=== PATIENT | male | born 1995 | race Two or more races ===

== ENCOUNTER 2020-02-02 10:48 | Outpatient (REF) | payer MEDICAID, SELFPAY | END 2020-02-02 10:49 | disposition home or self-care (01) | LOC: HO.LAB 10:48 | PROVIDERS: PCP Internal Medicine; Visit Provider Internal Medicine | DX: Z20.828 Contact with and (suspected) exposure to other viral communicable diseases (principal) | CPT/HCPCS: C9803; U0003 ==

== ENCOUNTER 2020-05-16 18:52 | Emergency (ER) | payer MEDICAID, SELFPAY | END 2020-05-16 21:12 | disposition left against medical advice (07) | PROVIDERS: Emergency Provider Emergency Medicine; PCP Internal Medicine | DX: J45.909 Unspecified asthma, uncomplicated (principal) ==

== ENCOUNTER 2020-05-17 10:26 | Outpatient (REF) | payer MEDICAID, SELFPAY ==
[2020-05-17 13:49] LABS: MANUAL DIFF FLAG NO
[2020-05-17 13:53] LABS: Basophils Percent Auto 0.5 % (0-2); Eosinophils Absolute Auto 1.1 X10*3/uL (0.0-0.4); Eosinophils Percent Auto 17.7 % (0-4); Hematocrit 45.1 % (42-52); Hemoglobin 14.8 g/dl (14.0-18.0); Imm Gran Abs Auto 0.01 X10*3/uL (0.00-0.03); Imm Gran Pct Auto 0.2 % (0.0-0.4); Lymphocytes Absolute Auto 1.5 X10*3/uL (1.2-4.9); Lymphocytes Percent Auto 25.5 % (20-40); Mean Corpuscular HGB Conc 32.8 g/dl (31.0-36.0); Mean Corpuscular Hemoglobin 28.6 pg (27.0-33.0); Mean Corpuscular Volume 87.2 fL (80-98); Mean Platelet Volume 11.1 fL (9.4-12.4); Monocytes Absolute Auto 0.6 X10*3/uL (0.1-1.2); Monocytes Percent Auto 10.1 % (2-11); Neutrophils Absolute Auto 2.7 X10*3/uL (2.0-8.3); Platelet Count 272 X10*3/uL (160-400); Red Blood Count 5.17 X10*6/uL (4.60-5.80); Red Cell Distribution Width 13.5 % (11.0-16.0); White Blood Count 5.9 X10*3/uL (4.8-10.8)
[2020-05-17 14:18] LABS: Anion Gap 15 (12-20); Blood Urea Nitrogen 13 mg/dL (9-16); Calcium 9.9 mg/dL (8.4-10.2); Carbon Dioxide 24 mmol/L (22-29); Chloride 105 mmol/L (96-108); Estimated Glomerular Filt Rate > 60; Glucose Random 87 mg/dL (60-115); Potassium 4.2 mmol/L (3.3-5.1); Sodium 140 mmol/L (135-145)
[2020-05-18 21:21] LABS: Alpha 1 Anti-trypsin 141 mg/dL (83-199)
== END 2020-05-17 10:27 | disposition home or self-care (01) ==
LOC: HO.10HDL 10:26
PROVIDERS: Visit Provider Internal Medicine
DX: J45.909 Unspecified asthma, uncomplicated (principal); R06.02 Shortness of breath
CPT/HCPCS: 36415; 80048; 82103; 85025

== ENCOUNTER 2020-05-17 16:33 | Emergency (ER) | payer MEDICAID, SELFPAY ==
--- NOTE | ~2020-05-17 | XR_ITS ---
EXAMINATION: XR CHEST CLINICAL INFORMATION: SOB. History of asthma COMPARISON: None TECHNIQUE: 2 views of the chest were obtained. FINDINGS: Both lungs are hyperinflated but clear. The heart size and pulmonary vascularity is normal. No gross bony abnormality seen XR/XR chest 2V IMPRESSION: Hyperinflated lungs without acute process.
--- NOTE | 2020-05-17 16:42 | ED_ITS ---
HPI - Asthma General Chief Complaint: Dyspnea <Adan Galloway MD - Last Filed: 05/17/20 16:54> Stated Complaint: Asthma <Adan Galloway MD - Last Filed: 05/17/20 16:54> Time Seen by Provider: 05/17/20 16:42 <Adan Galloway MD - Last Filed: 05/17/20 16:54> Source: patient <ONESIMO Madison - Last Filed: 05/17/20 19:20> Mode of arrival: ambulatory <ONESIMO Madison - Last Filed: 05/17/20 19:20> Limitations: no limitations <ONESIMO Madison - Last Filed: 05/17/20 19:20> History of Present Illness HPI Narrative: 25-year-old male with a past medical history of asthma and anxiety presenting to the ED with complaints of shortness of breath since yesterday despite using his albuterol inhaler and his nebulizer machine prior to arrival that he was just prescribed yesterday by his primary care provider. Denies any fevers, chills, dizziness, headaches, changes in vision, jaw pain, nausea/vomiting, dry cough or productive cough, dyspnea on exertion, orthopnea, palpitations, any symptoms or lower extremity edema. Reports he recently traveled to [place] and returned. Denies any other travel/immobilization/history of cancer or recent surgery or trauma. Denies being on any estrogen. Denies any other symptoms complaints or concerns at this time. <ONESIMO Madison - Last Filed: 05/17/20 19:20> complaint: asthma attack , shortness of breath and wheezing <ONESIMO Madison - Last Filed: 05/17/20 19:20> Onset (ago): day(s) (Two days) <ONESIMO Madison - Last Filed: 05/17/20 19:20> Severity: moderate <ONESIMO Madison - Last Filed: 05/17/20 19:20> Context: none known <ONESIMO Madison - Last Filed: 05/17/20 19:20> Associated symptoms: none <ONESIMO Madison Last Filed: 05/17/20 19:20> Treatments Prior to Arrival: inhaled bronchodilator and inhaled steroid <ONESIMO Madison - Last Filed: 05/17/20 19:20> Related Data Current Asthma Therapy: inhaled bronchodilator and inhaled steroid <ONESIMO Madison - Last Filed: 05/17/20 19:20> Home Medications: Home Medications Medication Instructions Recorded Confirmed albuterol sulfate 1 vial INHALATION Q4H PRN 05/17/20 05/17/20 albuterol sulfate 2 puff INHALATION QID PRN 05/17/20 05/17/20 albuterol sulfate [ProAir HFA] 2 puff PO QID PRN 05/17/20 05/17/20 montelukast 1 tab PO DAILY 05/17/20 05/17/20 Previous Rx's Medication Instructions Recorded azithromycin See Rx Instructions .ROUTE 05/17/20 .COMPLEX #6 tab prednisone 60 mg PO DAILY 5 Days #15 tab 05/17/20 <Adan Galloway MD - Last Filed: 05/17/20 16:54> Allergies/Adverse Reactions: Allergies Allergy/AdvReac Type Severity Reaction Status Date / Time No Known Allergies Allergy Unverified 05/17/20 16:47 <Adan Galloway MD - Last Filed: 05/17/20 16:54> Review of Systems Review of Systems: Constitutional : denies med noncompliance, no history of PE or DVT, + recent travel, No Fever, No Chills ENT/Mouth : No Hoarseness, No sore throat, No Rhinorrhea Eyes: No Redness, No Discharge, No Vision Changes Cardiovascular : + SOB, No Chest Pain, No Dyspnea on Exertion, No Edema, no pleurisy, Respiratory : + Wheezing, No Sputum, no stridor, no hemoptysis, Gastrointestinal : No Nausea, No Vomiting, No Diarrhea, No abdominal Pain Genitourinary : No Dysuria, No Hematuria Musculoskeletal : No joint pain, No Myalgias Extremities: no extremity swelling /pain Skin : No rash, no itching, no swelling Neuro : No Weakness, No Numbness, No Headache Psych : No anxiety, depression Heme/Lymph: No Bruising, No Bleeding Endocrine : No Polyuria, No Polydipsia <ONESIMO Madison - Last Filed: 05/17/20 19:20> Yes all other systems are reviewed and are negative <ONESIMO Madison - Last Filed: 05/17/20 19:20> [facility] Past Medical History Attestation statement: The following information was validated with the patient. <ONESIMO Madison - Last Filed: 05/17/20 19:20> Medical History: Medical History Anxiety Asthma <Adan Galloway MD - Last Filed: 05/17/20 16:54> Social History Social History: Social History Smoked in Last 30 Days: No Use of substances other than those prescribed or required for medical reasons: Yes Substance Use Type: Marijuana Substance Use Frequency: Daily Last Used Substance: Hours (ago) Any prior treatment program specific to substance use: No Advance Directives: No Advance Directives Information Provided: Yes <Adan Galloway MD - Last Filed: 05/17/20 16:54> Physical Exam Vital Signs: Vital Signs: Last Vital Signs Temp 98.7 F 05/17/20 16:44 Pulse 67 05/17/20 18:17 Resp 16 05/17/20 18:08 BP 117/74 05/17/20 18:08 Pulse Ox 98 05/17/20 18:08 Body Mass Index 19.2 <Adan Galloway MD - Last Filed: 05/17/20 16:54> Vital Signs: Last Vital Signs Temp 98.7 F 05/17/20 16:44 Pulse 67 05/17/20 18:17 Resp 16 05/17/20 18:08 BP 117/74 05/17/20 18:08 Pulse Ox 98 05/17/20 18:08 Body Mass Index 19.2 vital signs have been reviewed as normal and appeared to be correct. Blood pressure normal. Heart rate normal. Respiration rate normal. Temperature normal. Oxygen saturation normal. <ONESIMO Madison - Last Filed: 05/17/20 19:20> Appearance: Alert. Oriented X3. No acute distress. Head: Normal external exam. Normocephalic. Atraumatic. Eyes: PERRLA. EOMI. Conjunctiva and sclera normal. Eyelids normal. ENT: Pharynx normal. Uvula midline. Moist mucous membranes. No trismus noted. No drooling noted. No muffled voice noted. Neck: Normal inspection. Neck supple. FROM. No adenopathy. Thyroid Normal. No meningeal signs. No neck mass noted. CVS: Normal heart rate and rhythm. Heart sound normal. No murmurs noted. Pulses normal throughout. Respiratory: No respiratory distress. Painless inspiration. Mild expiratory wheezing diffusely with decreased breath sounds. No rales/rhonchi noted. Chest nontender. No accessory muscle usage noted or decreased air movement noted. Back: Full range of motion noted. Skin: Skin warm and dry. Normal skin color. Normal skin turgor. No rashes/lesions/lacerations noted. Extremities: No lower extremity edema. Extremities exhibit normal range of motion. Extremities nontender. Neuro: Oriented X 3. No motor deficit. No sensory deficit. Reflexes normal. <ONESIMO Madison - Last Filed: 05/17/20 19:20> Course Course Course Narrative: 25-year-old male with a past medical history of anxiety and Ativan presenting to the ED with complaints of shortness of breath for the past 2 days despite using his albuterol inhaler updraft machine prior to arrival. Reports recent travel to [place]. Denies any other symptoms. On exam patient has mild wheezing throughout. No retractions or accessory muscle noted. Chest x- ray obtained and negative for any acute processes. COVID swab negative. Patient received a breathing treatment reports he feels better. Will DC home with antibiotics and steroids and instructions to return if any new or worsening symptoms to follow up with primary care provider. Patient understands agrees with this plan. <ONESIMO Madison - Last Filed: 05/17/20 19:20> MDM - Asthma Medical Records Attestation: I reviewed the patient's medical records. <ONESIMO Madison - Last Filed: 05/17/20 19:20> Lab Data Attestation: I reviewed the patient's lab results. <ONESIMO Madison - Last Filed: 05/17/20 19:20> Labs: Lab Results 05/17/20 Range/Units 18:12 COVID-19 ([facility]) Negative (Negative) COVID-19 Clin Com See Note <Adan Galloway MD - Last Filed: 05/17/20 16:54> Lab Results 05/17/20 Range/Units 18:12 COVID-19 ([facility]) Negative (Negative) COVID-19 Clin Com See Note <ONESIMO Madison - Last Filed: 05/17/20 19:20> Imaging Data Chest x-ray: Attestation: I personally reviewed and interpreted this imaging study as follows: <ONESIMO Madison - Last Filed: 05/17/20 19:20> Radiologist's impression: FINDINGS: Both lungs are hyperinflated but clear. The heart size and pulmonary vascularity is normal. No gross bony abnormality seen XR/XR chest 2V IMPRESSION: Hyperinflated lungs without acute process. <ONESIMO Madison - Last Filed: 05/17/20 19:20> Discharge Plan Discharge Clinical Impression: Asthma with exacerbation <Adan Galloway MD - Last Filed: 05/17/20 16:54> Patient Disposition: Home, Self-Care <Adan Galloway MD - Last Filed: 05/17/20 16:54> Instructions: Asthma (ED), How to Use a Nebulizer (ED), Bronchospasm (ED) <Adan Galloway MD - Last Filed: 05/17/20 16:54> Prescriptions: New azithromycin 250 mg tablet See Rx Instructions .ROUTE .COMPLEX Qty: 6 RF: 0 prednisone 20 mg tablet 60 mg PO DAILY 5 Days Qty: 15 RF: 0 No Action albuterol sulfate 2.5 mg /3 mL (0.083 %) solution for nebulization 1 vial inhalation Q4H PRN (Reason: Shortness Of Breath Or Wheezing) RF: 0 montelukast 10 mg tablet 1 tab PO DAILY RF: 0 albuterol sulfate 90 mcg/actuation HFA aerosol inhaler 2 puff inhalation QID PRN (Reason: Shortness Of Breath Or Wheezing) RF: 0 albuterol sulfate [ProAir HFA] 90 mcg/actuation HFA aerosol inhaler 2 puff PO QID PRN (Reason: Shortness Of Breath Or Wheezing) RF: 0 <Adan Galloway MD - Last Filed: 05/17/20 16:54> Referrals: Adolph Salazar MD [Primary Care Provider] - 2 days <Adan Galloway MD - Last Filed: 05/17/20 16:54> Print Language: [place] <Adan Galloway MD - Last Filed: 05/17/20 16:54>
[2020-05-17 16:44] VITALS: BP 114/66; PULSE 94; RESP 22; TEMP 37.1; O2SAT 99; BMI 19.2
[2020-05-17] MEDS: predniSONE 20 MG TABLET 60 MG PO (18:06)
[2020-05-17 18:08] VITALS: BP 117/74; PULSE 78; RESP 16; O2SAT 98
[2020-05-17] MEDS: Albuterol Sulfate (0.083%) 2.5 MG/3 ML VIAL.NEB 5 MG INHALE (18:16)
[2020-05-17 18:17] VITALS: PULSE 67; O2SAT 100
[2020-05-17 18:34] LABS: COVID-19 Test Negative (Negative); IDNOW Serial# 9DD0AD1C
== END 2020-05-17 19:26 | disposition home or self-care (01) ==
PROVIDERS: Physician Assistant Medical; Emergency Provider Internal Medicine; PCP Internal Medicine
DX: J45.901 Unspecified asthma with (acute) exacerbation (principal); F12.90 Cannabis use, unspecified, uncomplicated; Z20.822 Contact with and (suspected) exposure to COVID-19
CPT/HCPCS: 36415; 71046; 87635; 94640; 99284

== ENCOUNTER 2020-08-03 23:04 | Emergency (ER) | payer MEDICAID, SELFPAY ==
[2020-08-03 23:07] VITALS: BP 112/86; PULSE 87; RESP 18; TEMP 36.6; O2SAT 99; BMI 19.2
--- NOTE | 2020-08-03 23:56 | ED.ASTHMA ---
HPI - Asthma General Chief Complaint: Asthma Stated Complaint: sob asthma Time Seen by Provider: 08/03/20 23:53 History of Present Illness HPI Narrative: Patient is a 25-year-old male with a history of asthma. Never been admitted to the hospital past . no recreational drugs. No smoking. Positive coughing positive congestion. Patient been to the ER multiple times. Never been admitted. Positive upper respiratory symptoms. Patient received his 1st coronavirus vaccine about a month ago. Related Data Home Medications Medication Instructions Recorded Confirmed albuterol sulfate 1 vial INHALATION Q4H PRN 05/17/20 05/17/20 albuterol sulfate 2 puff INHALATION QID PRN 05/17/20 05/17/20 albuterol sulfate [ProAir HFA] 2 puff PO QID PRN 05/17/20 05/17/20 montelukast 1 tab PO DAILY 05/17/20 05/17/20 Previous Rx's Medication Instructions Recorded azithromycin See Rx Instructions .ROUTE 05/17/20 .COMPLEX #6 tab prednisone 60 mg PO DAILY 5 Days #15 tab 05/17/20 albuterol sulfate 2 puff INHALATION QID PRN #6.7 g 08/03/20 prednisone 40 mg PO DAILY #10 tab 08/03/20 Allergies Allergy/AdvReac Type Severity Reaction Status Date / Time No Known Allergies Allergy Verified 08/03/20 23:07 Review of Systems Review of Systems: Constitutional: No Weight loss, No Fever, No Chills, No Night Sweats, No Fatigue, No Malaise ENT/Mouth: No Hearing loss, No Ear Pain, No Nasal Congestion, No Sinus Pain, No Hoarseness, No sore throat, No Rhinorrhea, No Swallowing Difficulty Eyes: No Eye Pain, No Swelling, No Redness, No Foreign Body, No Discharge, No Vision Changes Cardiovascular: No Chest Pain, No SOB, No Dyspnea on Exertion, No Orthopnea, No Edema, No Palpitations Respiratory: Positive cough positive upper respiratory symptoms Gastrointestinal: No Nausea, No Vomiting, No Diarrhea, No Constipation, No abdominal Pain, No Hematochezia, No Melena Genitourinary: no irregular bleeding, No Dysuria, No Urinary Frequency, No Hematuria, No Urinary Incontinence, No Urgency, No Flank Pain, No Urinary Flow Changes, No Hesitancy Musculoskeletal: No joint pain, No Myalgias, No Joint Swelling Skin: No Skin Lesions, No rash Neuro: No Weakness, No Numbness, No Paresthesias, No Loss of Consciousness, No Dizziness, No Headache Psych: No Anxiety/Panic, No Depression, No SI/HI/AH/VH, No Social Issues, Heme/Lymph: No Bruising, No Bleeding,No Lymphadenopathy Endocrine: No Polyuria, No Polydipsia, No Temperature Intolerance PMFSH Past Medical History Medical History Anxiety Asthma Social History Social History Alcohol intake: unknown Patient Tobacco Use Status: Never used Tobacco Use of substances other than those prescribed or required for medical reasons: No Substance Use Type: Marijuana Advance Directives: No Physical Exam Vital Signs: Vital Signs: Last Vital Signs Temp 97.8 F 08/03/20 23:07 Pulse 87 08/03/20 23:07 Resp 18 08/03/20 23:07 BP 112/86 08/03/20 23:07 Pulse Ox 99 08/03/20 23:07 Body Mass Index 19.2 Appearance: Alert. Oriented X3. No acute distress. Eyes: Pupils equal, round and reactive to light. ENT: Pharynx normal. Neck: Normal inspection. Neck supple. No lymph nodes noted. No crepitus CVS: Normal heart rate and rhythm. Pulses normal. Normal S1 and S2 Respiratory: No respiratory distress. Breath sounds normal. No Wheezing. No rales Abdomen: Soft and nontender. No rigidity. No distention. good BS x4 Skin: Skin warm and dry. Normal skin color. Normal skin turgor. Extremities: No lower extremity edema. Neurovascular intact to all extremities. No Lacerations. No Rash Neuro: Oriented X 3. No motor deficit. No sensory deficit. Moving all extermities. No slurred speech MDM - Asthma MDM Narrative Medical decision making narrative: Patient's lungs are clear. O2 sats 99% on room air. Already took 40 mg of prednisone at home which she had a supplied of. Will he give patient a script for prednisone. Additional albuterol. As patient ran out of his inhaler. Patient will also get a COVID test as he has upper respiratory symptoms only had 1 vaccine. Currently in stable condition. COVID test was negative Lab Data Labs: Lab Results 08/04/20 Range/Units 00:08 COVID-19 ([facility]) Negative (Negative) COVID-19 Clin Com See Note Discharge Plan Discharge Clinical Impression: Asthma Patient Disposition: Home, Self-Care Instructions: Asthma (ED) Prescriptions: New prednisone 20 mg tablet 40 mg PO DAILY Qty: 10 RF: 0 albuterol sulfate 90 mcg/actuation HFA aerosol inhaler 2 puff inhalation QID PRN (Reason: shortness of breath or wheezing) Qty: 6.7 RF: 0 No Action albuterol sulfate 2.5 mg /3 mL (0.083 %) solution for nebulization 1 vial inhalation Q4H PRN (Reason: Shortness Of Breath Or Wheezing) RF: 0 montelukast 10 mg tablet 1 tab PO DAILY RF: 0 albuterol sulfate 90 mcg/actuation HFA aerosol inhaler 2 puff inhalation QID PRN (Reason: Shortness Of Breath Or Wheezing) RF: 0 albuterol sulfate [ProAir HFA] 90 mcg/actuation HFA aerosol inhaler 2 puff PO QID PRN (Reason: Shortness Of Breath Or Wheezing) RF: 0 azithromycin 250 mg tablet See Rx Instructions .ROUTE .COMPLEX Qty: 6 RF: 0 prednisone 20 mg tablet 60 mg PO DAILY 5 Days Qty: 15 RF: 0 Referrals: Physician,Unknown [Primary Care Provider] - 2 days
[2020-08-04] MEDS: Albuterol Sulfate 90 MCG 8 GM INHALER 2 PUFF INHALE (00:15)
[2020-08-04 00:44] LABS: COVID-19 Test Negative (Negative); IDNOW Serial# 9DD0AD1C
== END 2020-08-04 01:35 | disposition home or self-care (01) ==
PROVIDERS: Emergency Provider Emergency Medicine Emergency Medical Services
DX: J45.909 Unspecified asthma, uncomplicated (principal); Z20.822 Contact with and (suspected) exposure to COVID-19
CPT/HCPCS: 36415; 87635; 99283; 99284

== ENCOUNTER 2021-01-28 14:20 | Outpatient (REF) | payer MEDICAID, SELFPAY ==
[2021-01-28 15:13] LABS: Influenza A PCR NEGATIVE (Negative); Influenza B PCR NEGATIVE (Negative); Resp Syncy Virus RNA Qual PCR NEGATIVE (Negative); SARS COV2 PCR INHOUSE POSITIVE (Negative)
== END 2021-01-28 14:21 | disposition home or self-care (01) ==
LOC: HO.LNP 14:20
PROVIDERS: Visit Provider Internal Medicine
DX: Z20.822 Contact with and (suspected) exposure to COVID-19 (principal)
CPT/HCPCS: 0241U

== ENCOUNTER 2021-09-19 13:58 | Outpatient (REF) | payer MEDICAID, SELFPAY ==
[2021-09-19 14:43] LABS: Influenza A PCR NEGATIVE (Negative); Influenza B PCR NEGATIVE (Negative); Resp Syncy Virus RNA Qual PCR POSITIVE (Negative); SARS COV2 PCR INHOUSE NEGATIVE (Negative)
== END 2021-09-19 13:59 | disposition home or self-care (01) ==
LOC: HO.LNP 13:58
PROVIDERS: Visit Provider Internal Medicine
DX: Z20.822 Contact with and (suspected) exposure to COVID-19 (principal)
CPT/HCPCS: 0241U

== ENCOUNTER 2021-12-01 10:50 | Emergency (ER) | payer MEDICAID, SELFPAY ==
[2021-12-01 11:29] VITALS: BP 104/56; PULSE 68; RESP 20; TEMP 37.2; O2SAT 99; BMI 18.3
[2021-12-01 11:40] LABS: MANUAL DIFF FLAG NO
[2021-12-01 11:41] LABS: Basophils Absolute Auto 0.1 X10*3/uL (0.0-0.2); Basophils Percent Auto 0.4 % (0-2); Eosinophils Absolute Auto 0.2 X10*3/uL (0.0-0.4); Eosinophils Percent Auto 1.3 % (0-4); Hematocrit 40.3 % (42.0-52.0); Hemoglobin 13.6 g/dl (14.0-18.0); Imm Gran Abs Auto 0.05 X10*3/uL (0.00-0.03); Imm Gran Pct Auto 0.4 % (0.0-0.4); Lymphocytes Absolute Auto 1.9 X10*3/uL (1.2-4.9); Lymphocytes Percent Auto 16.4 % (20-40); Mean Corpuscular HGB Conc 33.7 g/dl (31.0-36.0); Mean Corpuscular Hemoglobin 29.6 pg (27.0-33.0); Mean Corpuscular Volume 87.6 fL (80.0-98.0); Mean Platelet Volume 10.5 fL (9.4-12.4); Monocytes Absolute Auto 1.1 X10*3/uL (0.1-1.2); Monocytes Percent Auto 9.5 % (2-11); Neutrophils Absolute Auto 8.2 x10*3/uL (2.0-8.3); Platelet Count 257 X10*3/uL (160-400); Red Cell Distribution Width 12.9 % (11.0-16.0); White Blood Count 11.4 X10*3/uL (4.8-10.8)
[2021-12-01 11:46] LABS: Appearance Urine Clear; Color Urine Yellow; Glucose Urine UA Negative (Negative); Leukocyte Esterase Urine Negative (Negative); Nitrite Urine Negative (Negative); PH 8.5 (5.0-9.0); Specific Gravity - Urine <= 1.005 (1.005-1.025); UMIC TRIGGER UACC YES; Urine Blood Small (1+) (Negative); Urine Ketones Negative (Negative); Urine Protein Negative (Neg-Trace)
[2021-12-01 12:00] VITALS: BP 116/80; PULSE 81; RESP 20; TEMP 37.1; O2SAT 96
[2021-12-01 12:01] LABS: Bacteria Urine None Seen (None Seen); Hyaline Casts Urine 0-2 /LPF (0-2); Squamous Epithelial Cell Urine 0-2 /HPF (0-2); WBC Urine 0-5 /HPF (0-5)
[2021-12-01 12:18] LABS: Alanine Aminotransferase 8 U/L (0-40); Albumin Level 4.6 g/dL (3.5-5.0); Alkaline Phosphatase 84 U/L (39-117); Anion Gap 16 (12-20); Aspartate Amino Transferase 14 U/L (5-37); Bilirubin Total 0.4 mg/dL (0.0-1.0); Blood Urea Nitrogen 10 mg/dL (9-16); Calcium 9.9 mg/dL (8.4-10.2); Carbon Dioxide 24 mmol/L (22-29); Chloride 102 mmol/L (96-108); Creatinine Clr Calc Pharmacy 104.1; Estimated Glomerular Filt Rate > 60; Glucose Random 85 mg/dL (60-115); Lipase 21 U/L (8-78); Potassium 4.1 mmol/L (3.3-5.1); Sodium 138 mmol/L (135-145); Total Protein 7.6 g/dL (6.5-8.0)
--- NOTE | 2021-12-01 12:57 | ED.ABDPAIN ---
HPI - Abdominal Pain General Chief Complaint: Abdominal Pain Stated Complaint: Flank pain/back pain Time Seen by Provider: 12/01/21 12:46 Source: patient Mode of arrival: ambulatory Limitations: no limitations History of Present Illness HPI narrative: 26-year-old male came in for evaluation of left flank pain. Left flank pain started 3 days ago, pain is localized to the left flank area radiates to left groin, no scrotal pain. No dysuria, no hematuria, no frequency urination, no nausea, no vomiting, normal bowel movement, patient did not remember hurting his back. Related Data Home Medications Medication Instructions Recorded Confirmed albuterol sulfate 2.5 mg/3 mL 1 vial inhalation Q4H PRN 05/17/20 05/17/20 (0.083 %) solution for nebulization Shortness Of Breath Or Wheezing albuterol sulfate 90 mcg/actuation 2 puff inhalation QID PRN 05/17/20 05/17/20 aerosol inhaler Shortness Of Breath Or Wheezing albuterol sulfate 90 mcg/actuation 2 puff PO QID PRN Shortness Of 05/17/20 05/17/20 aerosol inhaler (ProAir HFA) Breath Or Wheezing montelukast 10 mg tablet 1 tab PO DAILY 05/17/20 05/17/20 Previous Rx's Medication Instructions Recorded azithromycin 250 mg tablet See Rx Instructions PO .COMPLEX #6 05/17/20 tabs prednisone 20 mg tablet 60 mg PO DAILY rash 5 days #15 tabs 05/17/20 albuterol sulfate 90 mcg/actuation 2 puff inhalation QID PRN 08/03/20 aerosol inhaler shortness of breath or wheezing #6.7 grams prednisone 20 mg tablet 40 mg PO DAILY #10 tabs 08/03/20 Allergies Allergy/AdvReac Type Severity Reaction Status Date / Time No Known Allergies Allergy Verified 08/03/20 23:07 Review of Systems Review of Systems All other systems are reviewed and are negative Constitutional: Reports as per HPI and Reports no additional constitutional complaints Eyes: Reports as per HPI and Reports no additional eye complaints Reports system reviewed and no additional complaints, except as documented Cardiovascular: Reports as per HPI and Reports no additional cardiovascular complaints Respiratory: Reports as per HPI and Reports no additional respiratory complaints Gastrointestinal: Reports as per HPI and Reports no additional gastrointestinal complaints Genitourinary: Reports no additional female genitourinary complaints Musculoskeletal: Reports no additional musculoskeletal complaints Skin/Breast: Reports system reviewed and no additional complaints, except as docu Psychiatric: Reports no additional psychiatric complaints Endocrine: Reports no additional endocrine complaints Hematologic/Lymphatic: Reports no additional hematologic/lymphatic complaints Allergic/Immunologic: Reports no additional allergic/immunologic complaints Reports system reviewed and no additional complaints, except as documented and Reports Abnormal speech present FORMERLY [facility], [facility] Past Medical History Medical History Anxiety Asthma Social History Social History Alcohol intake: unknown Patient Tobacco Use Status: Never used Tobacco Substance Use Type: Marijuana Advance Directives: No Advance Directives Information Provided: No Physical Exam ED Vital Signs: Vital Signs - 24 hr 12/01/21 11:29 12/01/21 12:00 12/01/21 13:04 Temperature 99.0 F 98.7 F Pulse Rate 68 81 Respiratory Rate 20 20 20 Blood Pressure 104/56 L 116/80 Pulse Oximetry 99 96 Oxygen Delivery Method Room Air Room Air BMI result Body Mass Index 18.3 Vital signs have been reviewed as appeared to be correct. Blood pressure normal. Heart rate normal. Respiration rate normal. Temperature normal. Oxygen saturation normal. Appearance: Alert. Oriented X3. No acute distress. Head: Normal external exam. Normocephalic. Atraumatic. No [place] signs noted. No raccoon eyes noted Eyes: PERRLA. EOMI. Conjunctiva and sclera normal. Eyelids normal. ENT: TM's Normal. Pharynx normal. Uvula midline. Moist mucous membranes. No trismus noted. No drooling noted. No muffled voice noted. Neck: Normal inspection. Neck supple. FROM. No adenopathy. Thyroid Normal. No meningeal signs. No neck mass noted. CVS: Normal heart rate and rhythm. Heart sound normal. No murmurs noted. Pulses normal throughout. Respiratory: No respiratory distress. Painless inspiration. Breath sounds normal. No wheezes/rales/rhonchi noted. Chest nontender. No accessory muscle usage noted or decreased air movement noted. Abdomen: Soft and nontender. Bowel sounds normal in all 4 quadrants. No distention noted. No organomegaly noted. No visible injury noted. Back: Left CVA tenderness. Full range of motion noted. Skin: Skin warm and dry. Normal skin color. Normal skin turgor. No rashes/lesions/lacerations noted. Extremities: No lower extremity edema. Extremities exhibit normal range of motion. Extremities nontender. Neuro: Oriented X 3. Cranial nerve exam: II-XII are grossly intact No motor deficit. No sensory deficit. Reflexes normal. Course Course Course Narrative: 26-year-old male came in with left flank pain, patient declined any strenuous activity or injury to his back, CT and labs are unremarkable for acute findings. Labs is unremarkable will discharge the patient on NSAIDs, muscle relaxant, physical restriction, heating pad and follow-up with PCP. MDM - Abdominal Pain Medical Records Attestation: I reviewed the patient's medical records. Lab Data Attestation: I reviewed the patient's lab results. Result diagrams: 12/01/21 11:35 12/01/21 11:35 Labs: Lab Results 12/01/21 12/01/21 12/01/21 Range/Units 11:35 11:35 11:39 WBC 11.4 H (4.8-10.8) X10*3/uL RBC 4.60 (4.60-5.80) X10*6/uL Hgb 13.6 L (14.0-18.0) g/dl Hct 40.3 L (42.0-52.0) % MCV 87.6 (80.0-98.0) fL MCH 29.6 (27.0-33.0) pg MCHC 33.7 (31.0-36.0) g/dl RDW 12.9 (11.0-16.0) % Plt Count 257 (160-400) X10*3/uL MPV 10.5 (9.4-12.4) fL Immature Gran % (Auto) 0.4 (0.0-0.4) % Neut % (Auto) 72.0 (45-73) % Lymph % (Auto) 16.4 L (20-40) % [place] % (Auto) 9.5 (2-11) % Eos % (Auto) 1.3 (0-4) % Baso % (Auto) 0.4 (0-2) % Lymph # (Auto) 1.9 (1.2-4.9) X10*3/uL [place] # (Auto) 1.1 (0.1-1.2) X10*3/uL Eos # (Auto) 0.2 (0.0-0.4) X10*3/uL Baso # (Auto) 0.1 (0.0-0.2) X10*3/uL Abs Immat Gran (auto) 0.05 H (0.00-0.03) X10*3/uL Absolute Neuts (auto) 8.2 (2.0-8.3) x10*3/uL Absolute Nucleated RBC 0.000 (0.0-0.012) X10*3/uL Nucleated RBC % (auto) 0.0 (0.0-0.2) /100WBC Sodium 138 (135-145) mmol/L Potassium 4.1 (3.3-5.1) mmol/L Chloride 102 (96-108) mmol/L Carbon Dioxide 24 (22-29) mmol/L Anion Gap 16 (12-20) BUN 10 (9-16) mg/dL Creatinine 0.87 (0.5-1.4) mg/dL Estim Creat Clear Calc 104.1 Estimated GFR > 60 Random Glucose 85 (60-115) mg/dL Calcium 9.9 (8.4-10.2) mg/dL Total Bilirubin 0.4 (0.0-1.0) mg/dL AST 14 (5-37) U/L ALT 8 (0-40) U/L Alkaline Phosphatase 84 (39-117) U/L Total Protein 7.6 (6.5-8.0) g/dL Albumin 4.6 (3.5-5.0) g/dL Lipase 21 (8-78) U/L Urine Color Yellow Urine Appearance Clear Urine pH 8.5 (5.0-9.0) Ur Specific [place] <= 1.005 (1.005-1.025) Urine Protein Negative (Neg-Trace) mg/dL Urine Glucose (UA) Negative (Negative) mg/dL Urine Ketones Negative (Negative) mg/dL Urine Blood Small (1+) H (Negative) Urine Nitrite Negative (Negative) Ur Leukocyte Esterase Negative (Negative) Urine RBC 3-5 H (0-2) /HPF Urine WBC 0-5 (0-5) /HPF Ur Squamous Epith Cells 0-2 (0-2) /HPF Urine Bacteria None Seen (None Seen) Hyaline Casts 0-2 (0-2) /LPF COVID-19 (SUNNI) (Negative) COVID-19 Clin Com 12/01/21 Range/Units 13:08 WBC (4.8-10.8) X10*3/uL RBC (4.60-5.80) X10*6/uL Hgb (14.0-18.0) g/dl Hct (42.0-52.0) % MCV (80.0-98.0) fL MCH (27.0-33.0) pg MCHC (31.0-36.0) g/dl RDW (11.0-16.0) % Plt Count (160-400) X10*3/uL MPV (9.4-12.4) fL Immature Gran % (Auto) (0.0-0.4) % Neut % (Auto) (45-73) % Lymph % (Auto) (20-40) % [place] % (Auto) (2-11) % Eos % (Auto) (0-4) % Baso % (Auto) (0-2) % Lymph # (Auto) (1.2-4.9) X10*3/uL [place] # (Auto) (0.1-1.2) X10*3/uL Eos # (Auto) (0.0-0.4) X10*3/uL Baso # (Auto) (0.0-0.2) X10*3/uL Abs Immat Gran (auto) (0.00-0.03) X10*3/uL Absolute Neuts (auto) (2.0-8.3) x10*3/uL Absolute Nucleated RBC (0.0-0.012) X10*3/uL Nucleated RBC % (auto) (0.0-0.2) /100WBC Sodium (135-145) mmol/L Potassium (3.3-5.1) mmol/L Chloride (96-108) mmol/L Carbon Dioxide (22-29) mmol/L Anion Gap (12-20) BUN (9-16) mg/dL Creatinine (0.5-1.4) mg/dL Estim Creat Clear Calc Estimated GFR Random Glucose (60-115) mg/dL Calcium (8.4-10.2) mg/dL Total Bilirubin (0.0-1.0) mg/dL AST (5-37) U/L ALT (0-40) U/L Alkaline Phosphatase (39-117) U/L Total Protein (6.5-8.0) g/dL Albumin (3.5-5.0) g/dL Lipase (8-78) U/L Urine Color Urine Appearance Urine pH (5.0-9.0) Ur Specific [place] (1.005-1.025) Urine Protein (Neg-Trace) mg/dL Urine Glucose (UA) (Negative) mg/dL Urine Ketones (Negative) mg/dL Urine Blood (Negative) Urine Nitrite (Negative) Ur Leukocyte Esterase (Negative) Urine RBC (0-2) /HPF Urine WBC (0-5) /HPF Ur Squamous Epith Cells (0-2) /HPF Urine Bacteria (None Seen) Hyaline Casts (0-2) /LPF COVID-19 (SUNNI) Negative (Negative) COVID-19 Clin Com See Note Imaging Data CT abdomen pelvis: Attestation: I personally reviewed and interpreted this imaging study as follows: Radiologist's impression: *No kidney stone or hydronephrosis.? ?*There is a free fluid in the dependent portion of the pelvis ascites, uncertain etiology, if patient remain symptomatic, in 24 hours, consider correlation with follow-up contrast enhanced CT with IV and oral contrast. Discharge Plan Discharge Clinical Impression: Acute myofascial pain, Left flank pain Patient Disposition: Home, Self-Care Instructions: Flank Pain (ED) Prescriptions: No Action prednisone 20 mg tablet 40 mg PO DAILY Qty: 10 0RF albuterol sulfate 90 mcg/actuation HFA aerosol inhaler 2 puff inhalation QID PRN (Reason: shortness of breath or wheezing) Qty: 6.7 0RF albuterol sulfate 2.5 mg /3 mL (0.083 %) solution for nebulization 1 vial inhalation Q4H PRN (Reason: Shortness Of Breath Or Wheezing) montelukast 10 mg tablet 1 tab PO DAILY albuterol sulfate 90 mcg/actuation HFA aerosol inhaler 2 puff inhalation QID PRN (Reason: Shortness Of Breath Or Wheezing) albuterol sulfate [ProAir HFA] 90 mcg/actuation HFA aerosol inhaler 2 puff PO QID PRN (Reason: Shortness Of Breath Or Wheezing) azithromycin 250 mg tablet See Rx Instructions .ROUTE .COMPLEX Qty: 6 0RF Rx Instructions: take 500 mg today (day 1), then 250 mg for 4 days (days 2-5) prednisone 20 mg tablet 60 mg PO DAILY 5 Days Qty: 15 0RF Referrals: Adolph Salazar MD [Primary Care Provider] -
[2021-12-01 13:04] VITALS: RESP 20
[2021-12-01] MEDS: Morphine Sulfate 2 MG/ML CARTRIDGE IVPUSH (13:04)
[2021-12-01 13:31] LABS: COVID-19 Test Negative (Negative); IDNOW Serial# 16C4AD1C
== END 2021-12-01 14:46 | disposition home or self-care (01) ==
PROVIDERS: Emergency Provider Emergency Medicine; PCP Internal Medicine
DX: R10.9 Unspecified abdominal pain (principal); R10.30 Lower abdominal pain, unspecified; R51.9 Headache, unspecified; Z20.822 Contact with and (suspected) exposure to COVID-19; Z79.899 Other long term (current) drug therapy
CPT/HCPCS: 36415; 74176; 80053; 81001; 83690; 85025; 87635; 96374; 99284; J2270

== ENCOUNTER 2021-12-26 10:59 | Outpatient (REF) | payer MEDICAID, SELFPAY ==
[2021-12-26 12:44] LABS: Amphetamine Screen Urine Not Detected (Not Detect); Barbiturates, Urine Not Detected (Not Detect); Benzodiazepines Screen Urine Not Detected (Not Detect); Cannabinoid Screen Urine Not Detected (Not Detect); Cocaine Screen Urine Not Detected (Not Detect); Fentanyl, urine Not Detected (Not Detect); Opiate Screen Urine Not Detected (Not Detect); Phencyclidine Screen Urine Not Detected (Not Detect)
== END 2021-12-26 11:00 | disposition home or self-care (01) ==
LOC: HO.LAB 10:59
PROVIDERS: PCP Internal Medicine; Visit Provider Internal Medicine
DX: Z02.83 Encounter for blood-alcohol and blood-drug test (principal)
CPT/HCPCS: 80307

== ENCOUNTER 2022-01-28 11:55 | Outpatient (REF) | payer MEDICAID, SELFPAY ==
[2022-01-28 12:46] LABS: Influenza A PCR NEGATIVE (Negative); Influenza B PCR NEGATIVE (Negative); Resp Syncy Virus RNA Qual PCR NEGATIVE (Negative); SARS COV2 PCR INHOUSE NEGATIVE (Negative)
== END 2022-01-28 11:56 | disposition home or self-care (01) ==
LOC: HO.LNP 11:55
PROVIDERS: Visit Provider Internal Medicine
DX: R09.89 Other specified symptoms and signs involving the circulatory and respiratory systems (principal); Z20.822 Contact with and (suspected) exposure to COVID-19
CPT/HCPCS: 0241U

== ENCOUNTER 2022-03-24 12:23 | Outpatient (REF) | payer MEDICAID, SELFPAY ==
[2022-03-24 14:40] LABS: Amphetamine Screen Urine Not Detected (Not Detect); Barbiturates, Urine Not Detected (Not Detect); Benzodiazepines Screen Urine Not Detected (Not Detect); Cannabinoid Screen Urine Not Detected (Not Detect); Cocaine Screen Urine Not Detected (Not Detect); Fentanyl, urine Not Detected (Not Detect); Opiate Screen Urine Not Detected (Not Detect); Phencyclidine Screen Urine Not Detected (Not Detect)
== END 2022-03-24 12:24 | disposition home or self-care (01) ==
LOC: HO.LAB 12:23
PROVIDERS: PCP Internal Medicine; Visit Provider Internal Medicine
DX: Z13.89 Encounter for screening for other disorder (principal)
CPT/HCPCS: 80307

== ENCOUNTER 2022-04-04 13:22 | Outpatient (REF) | payer MEDICAID, SELFPAY ==
[2022-04-04 15:05] LABS: Amphetamine Screen Urine Not Detected (Not Detect); Barbiturates, Urine Not Detected (Not Detect); Benzodiazepines Screen Urine Not Detected (Not Detect); Cannabinoid Screen Urine Not Detected (Not Detect); Cocaine Screen Urine Not Detected (Not Detect); Fentanyl, urine Not Detected (Not Detect); Opiate Screen Urine Not Detected (Not Detect); Phencyclidine Screen Urine Not Detected (Not Detect)
== END 2022-04-04 13:23 | disposition home or self-care (01) ==
LOC: HO.LAB 13:22
PROVIDERS: PCP Internal Medicine; Visit Provider Internal Medicine
DX: Z02.83 Encounter for blood-alcohol and blood-drug test (principal)
CPT/HCPCS: 80307

== ENCOUNTER 2022-04-28 13:41 | Outpatient (REF) | payer MEDICAID, SELFPAY ==
[2022-04-28 14:58] LABS: Amphetamine Screen Urine Not Detected (Not Detect); Barbiturates, Urine Not Detected (Not Detect); Benzodiazepines Screen Urine Not Detected (Not Detect); Cannabinoid Screen Urine Not Detected (Not Detect); Cocaine Screen Urine Not Detected (Not Detect); Fentanyl, urine Not Detected (Not Detect); Opiate Screen Urine Not Detected (Not Detect); Phencyclidine Screen Urine Not Detected (Not Detect)
== END 2022-04-28 13:42 | disposition home or self-care (01) ==
LOC: HO.LAB 13:41
PROVIDERS: PCP Internal Medicine; Visit Provider Internal Medicine
DX: Z02.83 Encounter for blood-alcohol and blood-drug test (principal)
CPT/HCPCS: 80307

== ENCOUNTER 2022-04-29 16:46 | Outpatient (REF) | payer MEDICAID, SELFPAY ==
[2022-04-29 17:41] LABS: Influenza A PCR NEGATIVE (Negative); Influenza B PCR NEGATIVE (Negative); Resp Syncy Virus RNA Qual PCR NEGATIVE (Negative); SARS COV2 PCR INHOUSE NEGATIVE (Negative)
== END 2022-04-29 16:47 | disposition home or self-care (01) ==
LOC: HO.LNP 16:46
PROVIDERS: PCP Internal Medicine; Visit Provider Internal Medicine
DX: Z20.822 Contact with and (suspected) exposure to COVID-19 (principal); R05.9 Cough, unspecified; R50.9 Fever, unspecified
CPT/HCPCS: 0241U

== ENCOUNTER 2022-07-22 11:35 | Outpatient (REF) | payer MEDICAID, SELFPAY ==
[2022-07-22 12:40] LABS: Amphetamine Screen Urine Not Detected (Not Detect); Barbiturates, Urine Not Detected (Not Detect); Benzodiazepines Screen Urine Not Detected (Not Detect); Cannabinoid Screen Urine Not Detected (Not Detect); Cocaine Screen Urine Not Detected (Not Detect); Fentanyl, urine Not Detected (Not Detect); Opiate Screen Urine Not Detected (Not Detect); Phencyclidine Screen Urine Not Detected (Not Detect)
== END 2022-07-22 11:36 | disposition home or self-care (01) ==
LOC: HO.LAB 11:35
PROVIDERS: PCP Internal Medicine; Visit Provider Internal Medicine
DX: Z02.83 Encounter for blood-alcohol and blood-drug test (principal)
CPT/HCPCS: 80307

== ENCOUNTER 2022-07-24 13:07 | Outpatient (REF) | payer MEDICAID, SELFPAY ==
[2022-07-24 15:09] LABS: Amphetamine Screen Urine Not Detected (Not Detect); Barbiturates, Urine Not Detected (Not Detect); Benzodiazepines Screen Urine Not Detected (Not Detect); Cannabinoid Screen Urine Not Detected (Not Detect); Cocaine Screen Urine Not Detected (Not Detect); Fentanyl, urine Not Detected (Not Detect); Opiate Screen Urine Not Detected (Not Detect); Phencyclidine Screen Urine Not Detected (Not Detect)
== END 2022-07-24 13:08 | disposition home or self-care (01) ==
LOC: HO.LAB 13:07
PROVIDERS: PCP Internal Medicine; Visit Provider Internal Medicine
DX: Z02.83 Encounter for blood-alcohol and blood-drug test (principal)
CPT/HCPCS: 80307

== ENCOUNTER 2022-08-02 13:06 | Emergency (ER) | payer MEDICAID, SELFPAY ==
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
[2022-08-02 13:12] VITALS: BP 124/77; PULSE 80; RESP 20; TEMP 36.8; O2SAT 99; BMI 19.2
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
[2022-08-02 13:29] LABS: MANUAL DIFF FLAG NO
[2022-08-02 13:31] LABS: Basophils Absolute Auto 0.1 X10*3/uL (0.0-0.2); Basophils Percent Auto 0.4 % (0-2); Eosinophils Absolute Auto 0.7 X10*3/uL (0.0-0.4); Eosinophils Percent Auto 5.6 % (0-4); Hematocrit 41.6 % (42.0-52.0); Hemoglobin 13.8 g/dl (14.0-18.0); Imm Gran Abs Auto 0.16 X10*3/uL (0.00-0.03); Imm Gran Pct Auto 1.3 % (0.0-0.4); Lymphocytes Absolute Auto 3.2 X10*3/uL (1.2-4.9); Lymphocytes Percent Auto 26.5 % (20-40); Mean Corpuscular HGB Conc 33.2 g/dl (31.0-36.0); Mean Corpuscular Hemoglobin 29.5 pg (27.0-33.0); Mean Corpuscular Volume 88.9 fL (80.0-98.0); Mean Platelet Volume 10.6 fL (9.4-12.4); Monocytes Absolute Auto 0.8 X10*3/uL (0.1-1.2); Monocytes Percent Auto 6.6 % (2-11); Neutrophils Absolute Auto 7.3 x10*3/uL (2.0-8.3); Neutrophils Percent Auto 59.6 % (45-73); Platelet Count 251 X10*3/uL (160-400); Red Blood Count 4.68 X10*6/uL (4.60-5.80); White Blood Count 12.2 X10*3/uL (4.8-10.8)
[2022-08-02 13:37] LABS: INTERNATIONAL NORM RATIO 0.9 (0.9-1.1); Prothrombin Time 10.3 SEC (10.0-13.1)
[2022-08-02 13:40] LABS: Partial Thromboplastin Time 20.1 SEC (26.0-36.4)
[2022-08-02 13:59] LABS: Alanine Aminotransferase 16 U/L (0-40); Albumin Level 4.8 g/dL (3.5-5.0); Alkaline Phosphatase 68 U/L (39-117); Anion Gap 16 (12-20); Aspartate Amino Transferase 24 U/L (5-37); Bilirubin Direct 0.2 mg/dL (0.0-0.5); Bilirubin Total 0.5 mg/dL (0.0-1.0); Blood Urea Nitrogen 14 mg/dL (9-16); Calcium 10.1 mg/dL (8.4-10.2); Carbon Dioxide 25 mmol/L (22-29); Chloride 103 mmol/L (96-108); Creatinine Clr Calc Pharmacy 87.2; Estimated Glomerular Filt Rate > 60; Glucose Random 112 mg/dL (60-115); Magnesium 1.7 mg/dL (1.6-2.6); Potassium 3.9 mmol/L (3.3-5.1); Sodium 140 mmol/L (135-145)
[2022-08-02] MEDS: Ketorolac Tromethamine 60 MG/2 ML VIAL IM (16:04)
[2022-08-02 17:46] VITALS: BP 110/70; PULSE 87; RESP 16; O2SAT 98
== END 2022-08-02 18:28 | disposition home or self-care (01) ==
PROVIDERS: Physician Assistant; Emergency Provider Emergency Medicine; PCP Internal Medicine
DX: S62.23 Other fracture of base of first metacarpal bone (principal); S41.102A Unspecified open wound of left upper arm, initial encounter; S41.101A Unspecified open wound of right upper arm, initial encounter; S81.802A Unspecified open wound, left lower leg, initial encounter; S81.801A Unspecified open wound, right lower leg, initial encounter; V28.09XA Other motorcycle driver injured in noncollision transport accident in nontraffic accident, initial encounter; Y93.89 Activity, other specified; Y92.414 Local residential or business street as the place of occurrence of the external cause; Y99.9 Unspecified external cause status
CPT/HCPCS: 29125; 36415; 71046; 72100; 72170; 73110; 80048; 80076; 83735; 85025; 85610; 85730; 96372; 99284; J1885

== ENCOUNTER → 2022-08-04 10:36 | Outpatient (BNVA) | payer MEDICAID, SELFPAY | PROVIDERS: PCP Internal Medicine; Visit Provider Physician Assistant | DX: S62.308A Unspecified fracture of other metacarpal bone, initial encounter for closed fracture (principal) | CPT/HCPCS: 99202 ==

== ENCOUNTER 2022-08-06 09:26 | Day surgery (SDC) | payer MEDICAID, SELFPAY ==
--- NOTE | 2022-08-05 09:47 | P.CONAN_ITS ---
Documented by User: Jennifer Houston NP 08/05/22 09:47 HPI - Anesthesia Eval Consult details Narrative: 27yo M for Right Thumb Fx CRPP vs ORIF PMFSH Active Problems Active Problems: All Active Problems (Updated 08/04/22 @ 11:22 by Duc Ge PA-C) Closed fracture of 5th metacarpal (Acute) Asthma (Acute) Anxiety (Acute) Past Medical History Medical History (Updated 08/04/22 @ 11:22 by Duc Ge PA-C) Anxiety Asthma Surgical History Surgical History (Updated 08/06/22 @ 09:37 by Idania Costello) H/O circumcision Social History Social History (Updated 08/04/22 @ 10:54 by Maricruz Healy Rito) Alcohol intake: unknown Patient Tobacco Use Status: Never used Tobacco Use of substances other than those prescribed or required for medical reasons: Yes Substance Use Type: Marijuana Substance Use Frequency: Daily Are you DNR?: No Advance Directives: No Advance Directives Information Provided: Yes Current occupational status: unemployed Current occupation: right hand dominant Meds Allergies Allergy/AdvReac Type Severity Reaction Status Date / Time No Known Allergies Allergy Verified 08/06/22 09:34 Home Medications Medication Instructions Recorded Confirmed Last Taken Type albuterol sulfate 2.5 mg/3 mL 1 vial inhalation Q4H PRN 05/17/20 08/06/22 Unknown History (0.083 %) solution for nebulization Shortness Of Breath Or Wheezing albuterol sulfate 90 mcg/actuation 2 puff inhalation QID PRN 05/17/20 08/06/22 Unknown History aerosol inhaler Shortness Of Breath Or Wheezing Exam Exam Date and Time: August 05, 2022 0947 Pertinent Lab Results Pertinent Lab Results: Laboratory Tests 08/02/22 08/02/22 13:23 13:24 WBC 12.2 H Hgb 13.8 L Hct 41.6 L Plt Count 251 Sodium 140 Potassium 3.9 Chloride 103 Carbon Dioxide 25 BUN 14 Creatinine 1.08 Assessment and Plan Assessment Anesthesia Assessment: Chart Reviewed Documented by User: Blank Callahan MD 08/06/22 10:33 PMFSH Past Medical History Medical History (Updated 08/04/22 @ 11:22 by Duc Ge PA-C) Anxiety Asthma Family History Family history of problems with anesthesia: No Surgical History Surgical History (Updated 08/06/22 @ 09:37 by Idania Costello) H/O circumcision History of Problems with Anesthesia: No Social History Social History (Updated 08/04/22 @ 10:54 by Maricruz Healy [facility]) Alcohol intake: unknown Patient Tobacco Use Status: Never used Tobacco Use of substances other than those prescribed or required for medical reasons: Yes Substance Use Type: Marijuana Substance Use Frequency: Daily Are you DNR?: No Advance Directives: No Advance Directives Information Provided: Yes Current occupational status: unemployed Current occupation: right hand dominant Meds Allergies Allergy/AdvReac Type Severity Reaction Status Date / Time No Known Allergies Allergy Verified 08/06/22 09:34 Home Medications Medication Instructions Recorded Confirmed Last Taken Type albuterol sulfate 2.5 mg/3 mL 1 vial inhalation Q4H PRN 05/17/20 08/06/22 Unknown History (0.083 %) solution for nebulization Shortness Of Breath Or Wheezing albuterol sulfate 90 mcg/actuation 2 puff inhalation QID PRN 05/17/20 08/06/22 Unknown History aerosol inhaler Shortness Of Breath Or Wheezing Exam Airway Mallampati Class: II TM Dist: >3cm Neck ROM: Full Heart: rrr Lungs: cta Assessment and Plan Assessment Anesthesia Assessment: Anesthesia Plan Discussed and Smoking Cess. Discussed Final Anesthetic Review Family History of Problems with Anesthesia: No History of Problems with Anesthesia: No NPO: Yes ASA Class: II Final Preanesthetic Review: No Changes in Pt Med Stat, Meds/Allgs Chart Reviewed, Consent Obtained/Reviewed and Anes Risks/Benef Reviewed Patient Risk: Intermediate Procedure Risk: Intermediate Anesthetic Plan Anesthetic Plan: GA, Regional Block and Agree w/ Assess. and Plan Disposition: Standard PACU (4 puffs albuterol given pre op)
[2022-08-06] VITALS (9 sets, daily range): BP systolic 113–130; BP diastolic 72–86; PULSE 65–94; RESP 16–20; TEMP 36.2–36.8; O2SAT 96–100; BMI 19.9
--- NOTE | ~2022-08-06 | FL_ITS ---
EXAMINATION: XR FLUOROSCOPY WITH IMAGES CLINICAL INFORMATION: Fracture of right thumb. COMPARISON: None available. TECHNIQUE: Fluoroscopy Supervised By: Dr. Connors. Fluoroscopy Time: 62.28 seconds. Cumulative Dose: 1.4071 mGy. DAP: 0.0850 Gycm2. Images: 3. FINDINGS: Fluoroscopy provided for ORIF of fracture of the base of the first metacarpal bone. Images demonstrate 2 K wires projecting over the base of the first and second metacarpal bones with improved alignment. FL/FL guidance in OR IMPRESSION: Fluoroscopy guidance for ORIF of right first metacarpal fracture.
[2022-08-06] MEDS: Lactated Ringers 1,000 ML 100 ML IVCONT (10:12)
[2022-08-06] MEDS: Acetaminophen 1,000 MG/100 ML PIGGYBACK 400 MG IV (13:29)
[2022-08-06] MEDS: fentaNYL citrate/PF 100 MCG/2 ML VIAL 25 MCG IVPUSH (13:30)
--- NOTE | 2022-08-06 14:46 | PM.OP ---
Brief Operative Note Date of Service: 08/06/22 Pre-op diagnosis: Right Brito fracture Post-op diagnosis: same Procedure: CRPP right base of thumb intra-articular fracture Implants: none Surgeon: Stevie Connors MD Anesthesia: GETA and regional Was an Director Of Cardiology Service Line used for this Procedure?: Yes Director Of Cardiology Service Line: Janel Fuller Estimated blood loss (mL): 10 IV fluids (mL): 750 Pathology: none sent Condition: stable Disposition: PACU
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
== END 2022-08-06 14:36 | disposition home or self-care (01) ==
LOC: HO.SSS 09:27
PROVIDERS: PCP Internal Medicine; Visit Provider Orthopaedic Surgery
PROC: (CPT 26650; principal; 2022-08-06 11:30)
DX: S62.211A Bennett's fracture, right hand, initial encounter for closed fracture (principal); W01.0XXA Fall on same level from slipping, tripping and stumbling without subsequent striking against object, initial encounter; Y93.89 Activity, other specified; Y92.9 Unspecified place or not applicable; Y99.9 Unspecified external cause status; F41.1 Generalized anxiety disorder; J45.909 Unspecified asthma, uncomplicated; F12.90 Cannabis use, unspecified, uncomplicated; Z79.899 Other long term (current) drug therapy
CPT/HCPCS: 26650; J0131; J0690; J1100; J2250; J2405; J2550; J3010

== ENCOUNTER 2022-08-14 06:26 | Outpatient (REF) | payer MEDICAID, SELFPAY | END 2022-08-14 06:27 | disposition home or self-care (01) | LOC: HO.HOSX 06:26 | PROVIDERS: Visit Provider Physician Assistant | DX: S62.231D Other displaced fracture of base of first metacarpal bone, right hand, subsequent encounter for fracture with routine healing (principal); X58.XXXD Exposure to other specified factors, subsequent encounter | CPT/HCPCS: 29085; 73130; 99212 ==

== ENCOUNTER 2022-08-25 10:34 | Outpatient (REF) | payer MEDICAID, SELFPAY | END 2022-08-25 10:35 | disposition home or self-care (01) | LOC: HO.LAB 10:34 | PROVIDERS: PCP Internal Medicine; Visit Provider Internal Medicine | DX: Z13.89 Encounter for screening for other disorder (principal) | CPT/HCPCS: 80307 ==

== ENCOUNTER 2022-08-25 16:02 | Outpatient (REF) | payer MEDICAID, SELFPAY ==
--- NOTE | ~2022-08-25 | XR_ITS ---
EXAMINATION: XR HAND, RIGHT CLINICAL INFORMATION: Pain in the right hand. COMPARISON: X-ray 08/14/2022 and 08/02/2022. TECHNIQUE: Three views of the right hand. FINDINGS: Redemonstration of postsurgical fixation with 2 pins transfixing the fracture of the medial base of the 1st metacarpal with mild displacement of the fracture fragments. Hardware appears intact. Fracture line is less visible with mild callus formation. XR/XR hand RT min 3V IMPRESSION: Status post surgical fixation of the fracture of the medial base of the first metacarpal. Fracture line is less visible with mild callus formation.
== END 2022-08-25 16:03 | disposition home or self-care (01) ==
LOC: HO.HOSX 16:02
PROVIDERS: Visit Provider Physician Assistant
DX: S62.306D Unspecified fracture of fifth metacarpal bone, right hand, subsequent encounter for fracture with routine healing (principal)
CPT/HCPCS: 29085; 73130

== ENCOUNTER 2022-09-04 12:36 | Outpatient (AMB) | payer MEDICAID, SELFPAY ==
--- NOTE | 2022-09-04 12:52 | A.OFFVIS_ITS ---
Intake Intake Visit Reasons: Postop-R Thumb CRPP 08/06/22 NE-cast off with xrays Intake Note: Shawn is a 27 year old right hand dominant male who presents today for post operative right thumb CRPP, 08/06/22 NE. Cast off and xrays updated. Patient reports he has no pain or discomfort. Allergies No Known Allergies Allergy (Verified 09/04/22 13:00) HPI Postop-R Thumb CRPP 08/06/22 NE-cast off with xrays HPI Details 27-year-old right hand dominant male who returns to the office today for post-op right thumb CRPP, 08/06/[address] Connors. He states he has no pain in his thumb and is doing well overall. He has no concerns today. He states he is leaving for [place] in 1 and half weeks. [facility] Medical History Anxiety Asthma Surgical History H/O circumcision Social History Alcohol intake: unknown Patient Tobacco Use Status: Never used Tobacco Substance Use Type: Marijuana Current occupational status: unemployed Current occupation: right hand dominant Review of Systems Const All systems reviewed & are unremarkable except as noted in HPI and below Physical Exam Extrem Other: Right thumb: Pins site is clean, dry and intact. No sign of infection, no swelling. Sensation is intact. Office Procedures Casting/Splints 38009-Mdvt/Wrist Cast Application Procedure code (CPT) selection complete Results Reviewed Results Reviewed: Xrays were obtained in the office today and personally reviewed by me of the right hand which show stable fracture with pinns intact.- once pinns removed fracture line still visible Assessment & Plan Assessment & Plan (1) Closed fracture of 5th metacarpal: Code(s): S62.308A - Unspecified fracture of other metacarpal bone, initial encounter for closed fracture Plan Pins were removed in the office today without complications. He was placed back in a thumb spica cast. I recommended another 2 weeks for adequate healing of the fracture site, however he has plans to leave to [place] on September 13 and is unsure of when he is returning. Therefore, he will see back in a week for new x- rays and potentially place him in a thermal molded thumb spica splint. Orders: Orders 2 XR hand RT min 3V 09/04/22 M79.641 - Pain in right hand XR hand RT min 3V 09/04/22 M79.641 - Pain in right hand Patient Instructions: Scribed for Duc Ge PA-C, by [place] Truong medical reception, on 09/04/2022 at 12:30 PM EST. I, Duc Ge PA-C, have personally reviewed and agree with the information entered by the scribe. Coding Level of Care Code Global (58357) Diagnoses Closed fracture of 5th metacarpal S62.308A CPT Codes Casting - CPT: 52265-Xjao/Wrist Cast Application ([id number])
== END 2022-09-04 13:43 | disposition home or self-care (01) ==
PROVIDERS: PCP Internal Medicine; Visit Provider Physician Assistant
DX: S62.308D Unspecified fracture of other metacarpal bone, subsequent encounter for fracture with routine healing (principal)
CPT/HCPCS: 29085; 99024

== ENCOUNTER 2022-09-04 13:01 | Outpatient (REF) | payer MEDICAID, SELFPAY ==
--- NOTE | ~2022-09-04 | XR_ITS ---
EXAMINATION: XR HAND, RIGHT CLINICAL INFORMATION: Right hand pain, pre and post pin removal. COMPARISON: Right hand 08/26/2019. TECHNIQUE: PA, lateral, and oblique views of the right hand both before and after pin removal. FINDINGS: Initial sequence of films demonstrates 2 pins extending through the base of the 1st proximal metacarpal into the 2nd proximal metacarpal. The second set of images demonstrates ghost tracks after pin removal. No acute fractures are seen. XR/XR hand RT min 3V IMPRESSION: Pin removal right hand. No acute finding.
--- NOTE | ~2022-09-04 | XR_ITS ---
EXAMINATION: XR HAND, RIGHT CLINICAL INFORMATION: Right hand pain, pre and post pin removal. COMPARISON: Right hand 08/26/2019. TECHNIQUE: PA, lateral, and oblique views of the right hand both before and after pin removal. FINDINGS: Initial sequence of films demonstrates 2 pins extending through the base of the 1st proximal metacarpal into the 2nd proximal metacarpal. The second set of images demonstrates ghost tracks after pin removal. No acute fractures are seen. XR/XR hand RT min 3V IMPRESSION: Pin removal right hand. No acute finding.
== END 2022-09-04 13:02 | disposition home or self-care (01) ==
LOC: HO.HOSX 13:01
PROVIDERS: Visit Provider Physician Assistant
DX: S62.306D Unspecified fracture of fifth metacarpal bone, right hand, subsequent encounter for fracture with routine healing (principal)
CPT/HCPCS: 29085; 73130

== ENCOUNTER 2022-09-12 09:38 | Outpatient (REF) | payer MEDICAID, SELFPAY ==
--- NOTE | ~2022-09-12 | XR_ITS ---
EXAMINATION: XR HAND, RIGHT CLINICAL INFORMATION: Pain COMPARISON: Previous including 09/04/22 TECHNIQUE: Three views of the right hand. FINDINGS: Ghost tracks from previous instrumentation. There is an approximately 1.4 cm ossific fragment associated with the ulnar aspect of the articular surface of the first metacarpal. This involves approximately 25% of the articular surface in the radial aspect is approximately positioned relative to the ulnar aspect. There is some osteopenia. XR/XR hand RT min 3V IMPRESSION: 1. Intra-articular fracture involving the ulnar aspect of the articular surface of the first metacarpal. 2. Previous instrumentation. No evidence of hardware failure.
== END 2022-09-12 09:39 | disposition home or self-care (01) ==
LOC: HO.HOSX 09:38
PROVIDERS: Visit Provider Physician Assistant
DX: S62.306D Unspecified fracture of fifth metacarpal bone, right hand, subsequent encounter for fracture with routine healing (principal)
CPT/HCPCS: 73130

== ENCOUNTER 2022-09-12 10:25 | Outpatient (AMB) | payer MEDICAID, SELFPAY ==
--- NOTE | 2022-09-12 10:40 | A.OFFVIS_ITS ---
Intake Intake Visit Reasons: Postop-R Thumb CRPP 08/06/22 NE- Intake Note: Shawn a 27 year old right hand dominant male who presents today for post operative right thumb CRPP, 08/06/22 NE. Cast off and xrays updated. States he has no pain. Allergies No Known Allergies Allergy (Verified 09/12/22 10:42) HPI Postop-R Thumb CRPP 08/06/22 NE- HPI Details 27-year-old right hand dominant male who returns to the office today for post-op right thumb CRPP, 08/06/[address] Connors. He states he has no pain and is doing well overall. He has no concerns today. He is leaving for [place] on thursday. PFS Medical History Anxiety Asthma Surgical History H/O circumcision Social History Alcohol intake: unknown Patient Tobacco Use Status: Never used Tobacco Substance Use Type: Marijuana Current occupational status: unemployed Current occupation: right hand dominant Review of Systems Const All systems reviewed & are unremarkable except as noted in HPI and below Physical Exam Extrem Other: Right thumb: Pins site is clean, dry and intact. No sign of infection, no swelling. No discomfort along the fracture site. He is able to make a fist, extend all digits and perform oppositon. Sensation is intact. Results Reviewed Results Reviewed: Xrays were obtained in the office today and personally reviewed by me of the right hand which show stable fracture with pinns intact.- once pinns removed fracture line still visible Assessment & Plan Assessment & Plan (1) Closed fracture of 5th metacarpal: Code(s): S62.308A - Unspecified fracture of other metacarpal bone, initial encounter for closed fracture Plan Images were reviewed with Dr. Connors today. The fracture is healing however it does not have full callous formation and is not strong at this point. He was transitioned to an off the shelf thermal molded thumb spica splint which he will wear like a cast. He will remove it only for showering. I encouraged no heavy lifting more than a coffee cup. He is travelling to [place] on Thursday and will not be back any earlier than 6-8 weeks. Therefore, in 3-4 weeks he will start coming out of the brace for daily activities except anything that requires impact or lifting, he should wear the brace. I would like to see him back in about 6 weeks with new x-rays, sooner if needed. Orders: Orders XR hand RT min 3V Today M79.641 - Pain in right hand Patient Instructions: Scribed for Duc Ge PA-C, by [place] Truong medical reimbursement manager, on 09/12/2022 at 10:00 AM EST. I, Duc Ge PA-C, have personally reviewed and agree with the information entered by the scribe. Coding Level of Care Code Global (61217) Diagnoses Closed fracture of 5th metacarpal S62.308A
== END 2022-09-12 11:54 | disposition home or self-care (01) ==
PROVIDERS: PCP Internal Medicine; Visit Provider Physician Assistant
DX: S62.308A Unspecified fracture of other metacarpal bone, initial encounter for closed fracture (principal)
CPT/HCPCS: 99024

== ENCOUNTER 2022-10-01 13:01 | Emergency (ER) | payer MEDICAID, SELFPAY ==
[2022-10-01 13:20] VITALS: BP 113/73; PULSE 71; RESP 16; TEMP 36.8; O2SAT 99; BMI 22.0
--- NOTE | 2022-10-01 13:35 | ED_ITS ---
HPI - Overdose General Chief Complaint: ETOH/Substance Use Stated Complaint: Found unresponsive in car per EMS Time Seen by Provider: 10/01/22 13:12 Source: patient and EMS Mode of arrival: EMS Limitations: no limitations History of Present Illness HPI Narrative: Patient comes to the emergency room via ambulance. Patient was found unresponsive by family members in his car. Patient woke up fairly quickly without any Narcan. EMS was called and brought the patient to the emergency. Patient initially told EMS that he took 2 tablets of Klonopin. When patient arrived here, patient states that he has been struggling with chronic pain issues after he broke his thumb. For the last 2 months he has been using 5 mg of Percocet, today he used his uncle's medication, states it was oxycodone 30 mg but is not sure. At this time, patient has no complaints. Patient states that he is interested in getting information to stop taking narcotics. Patient denies suicidal or homicidal ideation, this was an accidental overdose. Patient denies any chest pain or shortness of breath Related Data Home Medications Medication Instructions Recorded Confirmed albuterol sulfate 2.5 mg/3 mL 1 vial inhalation Q4H PRN 05/17/20 08/06/22 (0.083 %) solution for nebulization Shortness Of Breath Or Wheezing albuterol sulfate 90 mcg/actuation 2 puff inhalation QID PRN 05/17/20 08/06/22 aerosol inhaler Shortness Of Breath Or Wheezing Allergies Allergy/AdvReac Type Severity Reaction Status Date / Time No Known Allergies Allergy Verified 09/12/22 10:42 Review of Systems Review of Systems: Constitutional : No Weight loss, No Fever, No Chills, No Night Sweats, No Fatigue, No Malaise ENT/Mouth : No Hearing loss, No Ear Pain, No Nasal Congestion, No Sinus Pain, No Hoarseness, No sore throat, No Rhinorrhea, No Swallowing Difficulty Eyes: No Eye Pain, No Swelling, No Redness, No Foreign Body, No Discharge, No Vision Changes Cardiovascular : No Chest Pain, No SOB, No Dyspnea on Exertion, No Orthopnea, No Edema, No Palpitations Respiratory : No Cough, No Sputum, No Wheezing, No Smoke Exposure, No Dyspnea Gastrointestinal : No Nausea, No Vomiting, No Diarrhea, No Constipation, No abdominal Pain, No Hematochezia, No Melena Genitourinary : no irregular bleeding, No Dysuria, No Urinary Frequency, No Hematuria, No Urinary Incontinence, No Urgency, No Flank Pain, No Urinary Flow Changes, No Hesitancy Musculoskeletal : No joint pain, No Myalgias, No Joint Swelling Skin : No Skin Lesions, No rash Neuro : No Weakness, No Numbness, No Paresthesias, No Loss of Consciousness, No Dizziness, No Headache Psych : No Anxiety/Panic, No Depression, No SI/HI/AH/VH, accidental overdose Heme/Lymph: No Bruising, No Bleeding,No Lymphadenopathy Endocrine : No Polyuria, No Polydipsia, No Temperature Intolerance [facility] Past Medical History Medical History Anxiety Asthma Surgical History H/O circumcision Social History Social History Alcohol intake: unknown Patient Tobacco Use Status: Never used Tobacco Substance Use Type: Painkillers Advance Directives: No Current occupational status: unemployed Current occupation: right hand dominant Physical Exam Vital Signs: Vital Signs: Last Vital Signs Temp 98.3 F 10/01/22 13:20 Pulse 71 10/01/22 14:31 Resp 18 10/01/22 14:31 BP 109/64 10/01/22 14:31 Pulse Ox 99 10/01/22 14:31 O2 Del Method Room Air 10/01/22 14:31 BMI result Body Mass Index 22.0 Const: Other: Appearance: Alert. Oriented X3. No acute distress. Eyes: Pupils equal, round and reactive to light. ENT: Pharynx normal. Neck: Normal inspection. Neck supple. No lymph nodes noted. No crepitus CVS: Normal heart rate and rhythm. Pulses normal. Normal S1 and S2 Respiratory: No respiratory distress. Breath sounds normal. No Wheezing. No rales Abdomen: Soft and nontender. No rigidity. No distention. Skin: Skin warm and dry. Normal skin color. Normal skin turgor. Extremities: No lower extremity edema. No Lacerations. No Rash Neuro: Oriented X 3. No motor deficit. No sensory deficit. Moving all extremities. No slurred speech. CN 2 through 12 grossly intact Psych: calm, cooperative, normal affect Course Course Course Narrative: -all of patient's labs and EKG pending -blood pressure 113/73, oxygen saturation 99% on room air Medical Decision Making Medical Decision Making [facility] Narrative: -my interpretation of labs: At baseline. Patient's urine toxicology negative for benzos or opiates. It is possible that patient accidentally overdosed with synthetic street drugs? Patient does smoke THC, possibly laced? -my interpretation of EKG: Sinus bradycardia, heart rate 57, no ST segment depression or elevation, no T-wave inversion, QTC 410 -troponin negative -Wells criteria score for pulmonary embolism 0 -patient to be somnolent but asymptomatic, patient agreeable to be seen by the care team for a SUDE eval -care team consult pending -physician observation started at 14:50 -D-dimer pending. Patient refused to have blood drawn a 2nd time. -care team went to the patient's room to evaluate the patient per patient's request. When the care team tried speaking to the patient, the patient said ?fuck that, I am going home Patient requesting to be discharged. -patient given home Narcan Differential Diagnosis Differential Diagnoses: The differential diagnosis associated with the presentation includes (Accidental overdose of benzos, narcotics) Admission/Observation Consideration of admission/observation: Escalation of care including admission/observation considered (Patient will be under observation until seen by the care team) Lab Data [facility] Lab Attestation statement: I reviewed the patient's lab results. 10/01/22 13:52 10/01/22 13:52 Labs: Lab Results 10/01/22 10/01/22 10/01/22 Range/Units 13:52 13:52 13:52 WBC 5.8 (4.8-10.8) X10*3/uL RBC 4.34 L (4.60-5.80) X10*6/uL Hgb 12.9 L (14.0-18.0) g/dl Hct 38.7 L (42.0-52.0) % MCV 89.2 (80.0-98.0) fL MCH 29.7 (27.0-33.0) pg MCHC 33.3 (31.0-36.0) g/dl RDW 13.2 (11.0-16.0) % Plt Count 206 (160-400) X10*3/uL MPV 10.6 (9.4-12.4) fL Immature Gran % (Auto) 0.2 (0.0-0.4) % Neut % (Auto) 51.4 (45-73) % Lymph % (Auto) 29.3 (20-40) % [place] % (Auto) 10.8 (2-11) % Eos % (Auto) 7.3 H (0-4) % Baso % (Auto) 1.0 (0-2) % Lymph # (Auto) 1.7 (1.2-4.9) X10*3/uL [place] # (Auto) 0.6 (0.1-1.2) X10*3/uL Eos # (Auto) 0.4 (0.0-0.4) X10*3/uL Baso # (Auto) 0.1 (0.0-0.2) X10*3/uL Abs Immat Gran (auto) 0.01 (0.00-0.03) X10*3/uL Absolute Neuts (auto) 3.0 (2.0-8.3) x10*3/uL Absolute Nucleated RBC 0.000 (0.0-0.012) X10*3/uL Nucleated RBC % (auto) 0.0 (0.0-0.2) /100WBC Sodium 140 (135-145) mmol/L Potassium 3.9 (3.3-5.1) mmol/L Chloride 108 (96-108) mmol/L Carbon Dioxide 24 (22-29) mmol/L Anion Gap 12 (12-20) BUN 10 (9-16) mg/dL Creatinine 0.87 (0.5-1.4) mg/dL Estim Creat Clear Calc 120.7 Estimated GFR > 60 Random Glucose 84 (60-115) mg/dL Calcium 9.4 D (8.4-10.2) mg/dL Total Bilirubin 0.4 (0.0-1.0) mg/dL Direct Bilirubin 0.2 (0.0-0.5) mg/dL AST 17 (5-37) U/L ALT 13 (0-40) U/L Alkaline Phosphatase 54 (39-117) U/L Troponin I High Sens < 2.7 (<3.5-35.0) ng/L Total Protein 6.8 (6.5-8.0) g/dL Albumin 4.0 (3.5-5.0) g/dL Urine Opiates Screen (Not Detect) Urine Fentanyl Screen (Not Detect) Ur Barbiturates Screen (Not Detect) Ur Phencyclidine Scrn (Not Detect) Ur Amphetamines Screen (Not Detect) U Benzodiazepines Scrn (Not Detect) Urine Cocaine Screen (Not Detect) U Marijuana (THC) Screen (Not Detect) Ethyl Alcohol < 10 mg/dL 10/01/22 Range/Units 13:52 WBC (4.8-10.8) X10*3/uL RBC (4.60-5.80) X10*6/uL Hgb (14.0-18.0) g/dl Hct (42.0-52.0) % MCV (80.0-98.0) fL MCH (27.0-33.0) pg MCHC (31.0-36.0) g/dl RDW (11.0-16.0) % Plt Count (160-400) X10*3/uL MPV (9.4-12.4) fL Immature Gran % (Auto) (0.0-0.4) % Neut % (Auto) (45-73) % Lymph % (Auto) (20-40) % [place] % (Auto) (2-11) % Eos % (Auto) (0-4) % Baso % (Auto) (0-2) % Lymph # (Auto) (1.2-4.9) X10*3/uL [place] # (Auto) (0.1-1.2) X10*3/uL Eos # (Auto) (0.0-0.4) X10*3/uL Baso # (Auto) (0.0-0.2) X10*3/uL Abs Immat Gran (auto) (0.00-0.03) X10*3/uL Absolute Neuts (auto) (2.0-8.3) x10*3/uL Absolute Nucleated RBC (0.0-0.012) X10*3/uL Nucleated RBC % (auto) (0.0-0.2) /100WBC Sodium (135-145) mmol/L Potassium (3.3-5.1) mmol/L Chloride (96-108) mmol/L Carbon Dioxide (22-29) mmol/L Anion Gap (12-20) BUN (9-16) mg/dL Creatinine (0.5-1.4) mg/dL Estim Creat Clear Calc Estimated GFR Random Glucose (60-115) mg/dL Calcium (8.4-10.2) mg/dL Total Bilirubin (0.0-1.0) mg/dL Direct Bilirubin (0.0-0.5) mg/dL AST (5-37) U/L ALT (0-40) U/L Alkaline Phosphatase (39-117) U/L Troponin I High Sens (<3.5-35.0) ng/L Total Protein (6.5-8.0) g/dL Albumin (3.5-5.0) g/dL Urine Opiates Screen Not Detected (Not Detect) Urine Fentanyl Screen Not Detected (Not Detect) Ur Barbiturates Screen Not Detected (Not Detect) Ur Phencyclidine Scrn Not Detected (Not Detect) Ur Amphetamines Screen Not Detected (Not Detect) U Benzodiazepines Scrn Not Detected (Not Detect) Urine Cocaine Screen Not Detected (Not Detect) U Marijuana (THC) Screen POSITIVE H (Not Detect) Ethyl Alcohol mg/dL Discharge Plan Discharge Clinical Impression: Accidental overdose Patient Disposition: Home, Self-Care Instructions: Adult Overdose (ED) Prescriptions: No Action albuterol sulfate 2.5 mg /3 mL (0.083 %) solution for nebulization 1 vial inhalation Q4H PRN (Reason: Shortness Of Breath Or Wheezing) albuterol sulfate 90 mcg/actuation HFA aerosol inhaler 2 puff inhalation QID PRN (Reason: Shortness Of Breath Or Wheezing)
--- NOTE | 2022-10-01 13:35 | ECG_ITS ---
Test Reason : OVERDOSE Blood Pressure : / mmHG Vent. Rate : 057 BPM Atrial Rate : 057 BPM P-R Int : 122 ms QRS Dur : 092 ms QT Int : 422 ms P-R-T Axes : 034 085 038 degrees QTc Int : 410 ms Sinus bradycardia Otherwise normal ECG When compared with ECG of 14-SEP-2017 17:08, T wave amplitude has decreased in Anterior leads Referred By: Sharmin Vergara Electronically Signed By:Mushtaq Ruiz
--- NOTE | 2022-10-01 13:43 | PC.NURSE ---
alert and oriented, resting comfortably in room. changed into hospital attire. denies si/hi, no narcan given. pleasant and cooperative with staff interested in detox programs.
[2022-10-01 13:58] LABS: MANUAL DIFF FLAG NO
[2022-10-01 14:02] LABS: Basophils Absolute Auto 0.1 X10*3/uL (0.0-0.2); Eosinophils Absolute Auto 0.4 X10*3/uL (0.0-0.4); Eosinophils Percent Auto 7.3 % (0-4); Hematocrit 38.7 % (42.0-52.0); Hemoglobin 12.9 g/dl (14.0-18.0); Imm Gran Abs Auto 0.01 X10*3/uL (0.00-0.03); Imm Gran Pct Auto 0.2 % (0.0-0.4); Lymphocytes Absolute Auto 1.7 X10*3/uL (1.2-4.9); Lymphocytes Percent Auto 29.3 % (20-40); Mean Corpuscular HGB Conc 33.3 g/dl (31.0-36.0); Mean Corpuscular Hemoglobin 29.7 pg (27.0-33.0); Mean Corpuscular Volume 89.2 fL (80.0-98.0); Mean Platelet Volume 10.6 fL (9.4-12.4); Monocytes Absolute Auto 0.6 X10*3/uL (0.1-1.2); Monocytes Percent Auto 10.8 % (2-11); Neutrophils Percent Auto 51.4 % (45-73); Platelet Count 206 X10*3/uL (160-400); Red Blood Count 4.34 X10*6/uL (4.60-5.80); Red Cell Distribution Width 13.2 % (11.0-16.0); White Blood Count 5.8 X10*3/uL (4.8-10.8)
[2022-10-01 14:14] LABS: Amphetamine Screen Urine Not Detected (Not Detect); Barbiturates, Urine Not Detected (Not Detect); Benzodiazepines Screen Urine Not Detected (Not Detect); Cannabinoid Screen Urine POSITIVE (Not Detect); Cocaine Screen Urine Not Detected (Not Detect); Fentanyl, urine Not Detected (Not Detect); Opiate Screen Urine Not Detected (Not Detect); Phencyclidine Screen Urine Not Detected (Not Detect)
[2022-10-01 14:21] LABS: Alanine Aminotransferase 13 U/L (0-40); Alkaline Phosphatase 54 U/L (39-117); Anion Gap 12 (12-20); Aspartate Amino Transferase 17 U/L (5-37); Bilirubin Direct 0.2 mg/dL (0.0-0.5); Bilirubin Total 0.4 mg/dL (0.0-1.0); Blood Urea Nitrogen 10 mg/dL (9-16); Calcium 9.4 mg/dL (8.4-10.2); Carbon Dioxide 24 mmol/L (22-29); Chloride 108 mmol/L (96-108); Creatinine Clr Calc Pharmacy 120.7; Estimated Glomerular Filt Rate > 60; Ethanol < 10 mg/dL; Glucose Random 84 mg/dL (60-115); Potassium 3.9 mmol/L (3.3-5.1); Sodium 140 mmol/L (135-145); Total Protein 6.8 g/dL (6.5-8.0)
[2022-10-01 14:31] VITALS: BP 109/64; PULSE 71; RESP 18; O2SAT 99
[2022-10-01 14:44] LABS: Troponin-I High Sensitivity < 2.7 ng/L (<3.5-35.0)
--- NOTE | 2022-10-01 15:32 | PC.NURSE ---
pt became agitated, refusing care.
--- NOTE | 2022-10-01 15:33 | PC.NURSE ---
attempted to discharge patient and provide paperwork, pt already out of room ambulating in hallway with steady gait to exit. able to speak with pt to remove his iv. ambulating with steady gait, speaking in full clear sentences.
--- NOTE | 2022-10-01 15:40 | MHC.RECOVSUP ---
Attempted to meet with pt in ED5 who was found unresponsive for EMILY. Pt had requested to be seen stating he wanted help to get off pills however when T/W spoke with pt he became agitated getting up saying he wants to go home and refused care. Provider aware.
== END 2022-10-01 15:33 | disposition home or self-care (01) ==
PROVIDERS: Emergency Provider Emergency Medicine; PCP Internal Medicine
DX: T42.4X1A Poisoning by benzodiazepines, accidental (unintentional), initial encounter (principal); Y92.9 Unspecified place or not applicable; R00.1 Bradycardia, unspecified; Z79.899 Other long term (current) drug therapy
CPT/HCPCS: 36415; 80048; 80076; 80307; 84484; 85025; 93005; 99284; 99285

== ENCOUNTER → 2022-10-01 13:35 | Outpatient (BNV) | payer MEDICAID, SELFPAY | PROVIDERS: Emergency Provider Emergency Medicine; PCP Internal Medicine; Visit Provider Internal Medicine Cardiovascular Disease | DX: R00.1 Bradycardia, unspecified (principal) | CPT/HCPCS: 93010 ==

== ENCOUNTER 2022-10-01 17:43 | Inpatient (IN) | payer MEDICAID, OTHER, SELFPAY ==
[2022-10-01] VITALS (9 sets, daily range): BP systolic 103–120; BP diastolic 72–82; PULSE 67–104; RESP 17–20; TEMP 37.1; O2SAT 95–99; BMI 18.5
--- NOTE | 2022-10-01 18:30 | PC.NURSE ---
Patient walking pushing on the doors attempting to leave the pod. Patient telling the nurse call the reprographics associate because I don't want to be here. If you keep me here I am going to want to hurt myself. Security called to help with patient, patient is more receptive to security than this nurse.
--- NOTE | 2022-10-01 18:38 | ED.PSYCH ---
HPI - Psych General Chief Complaint: Psychiatric Symptoms Stated Complaint: CRISIS SI Time Seen by Provider: 10/01/22 17:58 Source: patient and family Mode of arrival: EMS Limitations: no limitations History of Present Illness HPI Narrative: Patient 27 years old with history of ADHD substance Abuse snorts Percocet 30 mg tablets 3-[address] for last few months today earlier patient was seen after he overdosed on 2 tablets of 2 mg of Klonopin which is his uncle's medication. According to patient he wanted to stop using Percocet and Z used 2 tablets of Klonopin he has only 2 more tablets at home. Plan to go to Suboxone clinic. 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 because he knew they would get him patient seen in the field by [facility] Section 12 for suicidal remarks Related Data Home Medications Medication Instructions Recorded Confirmed albuterol sulfate 90 mcg/actuation 2 puff inhalation QID PRN 05/17/20 10/01/22 aerosol inhaler Shortness Of Breath Or Wheezing Allergies Allergy/AdvReac Type Severity Reaction Status Date / Time No Known Allergies Allergy Verified 09/12/22 10:42 Review of Systems Review of Systems: Yes all other systems are reviewed and are negative PMFSH Past Medical History Medical History Anxiety Asthma Surgical History H/O circumcision Social History Social History Alcohol intake: unknown Patient Tobacco Use Status: Never used Tobacco Substance Use Type: Painkillers Advance Directives: No Advance Directives Information Provided: No Current occupational status: unemployed Current occupation: right hand dominant Physical Exam Vital Signs: Vital Signs: Last Vital Signs Temp 98.3 F 10/02/22 06:06 Pulse 74 10/02/22 06:06 Resp 16 10/02/22 06:06 BP 97/59 L 10/02/22 06:06 Pulse Ox 96 10/02/22 06:06 O2 Del Method Room Air 10/02/22 06:06 BMI result Body Mass Index 18.5 Appearance: Alert. Oriented X3. No acute distress. Very anxious and agitated restless Eyes: PERRLA, No Nystagmus ENT: Pharynx normal. Oral Mucosa moist Neck: Normal inspection. Neck supple. CVS: Normal heart rate and rhythm. Pulses normal. Respiratory: No respiratory distress. Equal air entry bilateral, no wheezing/rales/rhonchi Abdomen: Soft and nontender. Bowel sounds are present, no mass palpable, no CVA tenderness Skin: Skin warm and dry. Normal skin color. Normal skin turgor. Extremities: No lower extremity edema. No calf tenderness psych: Anxious denies any hallucination delusions denies any SI or HI Neuro: Oriented X 3. No SI or HI statements, No motor deficit. No sensory deficit.No cerebellar signs , cranial nerves II-XII intact Course Reevaluation(s) Reevaluation #1: Continue physician observation, patient did require medication restrained and the suffering from paranoia. Psych consult and care team evaluation is pending. Time: 07:22 Medications Administered Generic Name Dose Route Start Last Admin Trade Name Freq PRN Reason Stop Dose Admin Albuterol Sulfate 2 puff 10/01/22 20:22 10/01/22 20:27 Albuterol Sulfate 90 Mcg 8 Gm Inhaler INHALE 2 puff QID PRN Administration Shortness Of Breath Or Wheezing Discontinued Medications Generic Name Dose Route Start Last Admin Trade Name Freq PRN Reason Stop Dose Admin Diphenhydramine HCl 50 mg 10/01/22 18:59 10/01/22 19:07 Diphenhydramine Hcl 25 Mg Capsule PO 10/01/22 19:00 50 mg ONCE ONE Administration Haloperidol Lactate 5 mg 10/01/22 20:01 10/01/22 20:10 Haloperidol Lactate 5 Mg/Ml Vial IM 10/01/22 20:02 5 mg ONCE ONE Administration Lorazepam 2 mg 10/01/22 18:59 10/01/22 19:07 Lorazepam 1 Mg Tablet PO 10/01/22 19:00 2 mg ONCE ONE Administration Lorazepam 2 mg 10/01/22 20:01 10/01/22 20:10 Lorazepam 2 Mg/Ml Vial IM 10/01/22 20:02 2 mg ONCE ONE Administration Lorazepam 2 mg 10/02/22 06:30 10/02/22 06:37 Lorazepam 1 Mg Tablet PO 10/02/22 06:31 Not Given ONCE STA Olanzapine 10 mg 10/01/22 18:59 10/01/22 19:07 Olanzapine 10 Mg Tablet PO 10/01/22 19:00 10 mg ONCE ONE Administration Ondansetron HCl 4 mg 10/02/22 06:30 10/02/22 06:34 Ondansetron Odt 4 Mg Tab.Rapdis TRANSLINGU 10/02/22 06:31 4 mg ONCE ONE Administration Ziprasidone 20 mg 10/01/22 22:43 10/01/22 22:50 Ziprasidone Mesylate 20 Mg Vial IM 10/01/22 22:44 20 mg ONCE ONE Administration Medical Decision Making Medical Decision Making MDM Narrative: Will stay in the ED, patient was agitated requiring medical restraint, case discussed mother patient's Section 12 for his suicidal behavior walking around on the street coming in front of the car and substance abuse Lab Data [facility] Lab Attestation statement: I reviewed the patient's lab results. Labs: Lab Results 10/01/22 Range/Units 19:14 Urine Opiates Screen POSITIVE H (Not Detect) Urine Fentanyl Screen Not Detected (Not Detect) Ur Barbiturates Screen Not Detected (Not Detect) Ur Phencyclidine Scrn Not Detected (Not Detect) Ur Amphetamines Screen Not Detected (Not Detect) U Benzodiazepines Scrn Not Detected (Not Detect) Urine Cocaine Screen Not Detected (Not Detect) U Marijuana (THC) Screen POSITIVE H (Not Detect) Discharge Plan Discharge Clinical Impression: Chronic schizophrenia, Depression, Anxiety Patient Disposition: Still a Patient Prescriptions: No Action albuterol sulfate 90 mcg/actuation HFA aerosol inhaler 2 puff inhalation QID PRN (Reason: Shortness Of Breath Or Wheezing) Interventions: Me[place]-Suicide Risk Severity Scale Last Done: 10/02/22 06:20
--- NOTE | 2022-10-01 18:47 | PC.NURSE ---
Patient was standing on bed pushing against the window stating that he wants to leave and go home. Patient informed that is not how he would go home and the best course of action was to get his lab work done and be seen by the provider and crisis. Patient wants the custom harvester to be called and wants to be arrested and get out of this facility. Patient states that he will break things in the pod until he gets arrested.
[2022-10-01] MEDS: diphenhydrAMINE HCL 25 MG CAPSULE 50 MG PO (19:07)
[2022-10-01] MEDS: OLANZapine 10 MG TABLET PO (19:07)
[2022-10-01] MEDS: LORazepam 1 MG TABLET 2 MG PO (19:07)
[2022-10-01 19:36] LABS: Amphetamine Screen Urine Not Detected (Not Detect); Barbiturates, Urine Not Detected (Not Detect); Benzodiazepines Screen Urine Not Detected (Not Detect); Cannabinoid Screen Urine POSITIVE (Not Detect); Cocaine Screen Urine Not Detected (Not Detect); Fentanyl, urine Not Detected (Not Detect); Opiate Screen Urine POSITIVE (Not Detect); Phencyclidine Screen Urine Not Detected (Not Detect)
[2022-10-01] MEDS: Haloperidol Lactate 5 MG/ML VIAL IM (20:10)
[2022-10-01] MEDS: LORazepam 2 MG/ML VIAL IM (20:10)
--- NOTE | 2022-10-01 20:13 | PC.NURSE ---
Patient is exhibiting psychotic symptoms, yelling, screaming, jumping over table, engaging unsafe behavior, putting himself on floor, provider notified/ordered Ativan 2 mg PO, Olanzapine 10 mg PO, and Benedryle 50 mg po, administered as ordered at with minimal to no effectm
--- NOTE | 2022-10-01 20:16 | PC.NURSE ---
Patient is exhibiting psychotic symptoms, yelling, screaming, jumping over table, engaging unsafe behavior, putting himself on floor, provider notified/ordered Ativan 2 mg PO, Olanzapine 10 mg PO, and Benedryle 50 mg po, administered as ordered at 190 with minimal to no effect, continued behavior asking help for comfort, Ativan 2 mg IM and Haldol 5 mg IM administered at 2009 as ordered per patient request, patient is currently in bed restless, patient is being closely observed, patient is on section 12 by [facility], awaiting care team assessment, will continue to monitor.
[2022-10-01] MEDS: Albuterol Sulfate 90 MCG 8 GM INHALER 2 PUFF INHALE (20:27)
--- NOTE | 2022-10-01 22:14 | PC.NURSE ---
Patient is under medication influence, unable to stay in bed, intermittently coming out of room with unsteady gait, incoherent, high fall risk, provider notified ordered physical restraint bilateral arm, for safety and harm, initiated at 2210, patient is on 1:1 for supervision, will continue to monitor.
[2022-10-01] MEDS: Ziprasidone Mesylate 20 MG VIAL IM (22:50)
--- NOTE | 2022-10-01 22:54 | PC.NURSE ---
Patient is still fighting to get out of restraint, provider notified/ordered Geodon 20 mg IM/administered at 2250 pending effect, will continue to monitor on 1:1 observation
[2022-10-02 00:10] VITALS: RESP 17
[2022-10-02 06:06] VITALS: BP 97/59; PULSE 74; RESP 16; TEMP 36.8; O2SAT 96
[2022-10-02] MEDS: Ondansetron ODT 4 MG TAB.RAPDIS TRANSLINGU ×2 (06:34→10:43)
--- NOTE | 2022-10-02 06:37 | PC.NURSE ---
Patient had one episode vomiting, Zofran 4 mg administered as ordered, currently in shower, pending blood draw, care consult ordered/pending evaluation, coherency has improved, med rec completed/ patient is currently on ventolin only for Asthma, VSS stable, will continue to monitor
[2022-10-02] MEDS: OLANZapine 10 MG TABLET PO (07:58)
[2022-10-02 08:50] VITALS: BP 107/63; PULSE 58; RESP 16; TEMP 36.3; O2SAT 99
[2022-10-02] MEDS: methADONE HCl 20 MG/2 ML ORAL.CONC PO (10:43)
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
[2022-10-02] MEDS: TiZANidine HCL 4 MG TABLET PO (13:00)
[2022-10-02 13:13] LABS: MANUAL DIFF FLAG NO
[2022-10-02 13:14] LABS: Basophils Percent Auto 0.2 % (0-2); Eosinophils Percent Auto 0.1 % (0-4); Imm Gran Abs Auto 0.03 X10*3/uL (0.00-0.03); Imm Gran Pct Auto 0.3 % (0.0-0.4); Lymphocytes Absolute Auto 0.6 X10*3/uL (1.2-4.9); Lymphocytes Percent Auto 7.2 % (20-40); Mean Corpuscular HGB Conc 33.3 g/dl (31.0-36.0); Mean Corpuscular Hemoglobin 29.5 pg (27.0-33.0); Mean Corpuscular Volume 88.6 fL (80.0-98.0); Mean Platelet Volume 10.2 fL (9.4-12.4); Monocytes Absolute Auto 0.3 X10*3/uL (0.1-1.2); Monocytes Percent Auto 3.8 % (2-11); Neutrophils Absolute Auto 7.8 x10*3/uL (2.0-8.3); Neutrophils Percent Auto 88.4 % (45-73); Platelet Count 222 X10*3/uL (160-400); Red Blood Count 4.74 X10*6/uL (4.60-5.80); Red Cell Distribution Width 13.5 % (11.0-16.0); White Blood Count 8.8 X10*3/uL (4.8-10.8)
[2022-10-02 13:34] LABS: Acetaminophen LAB < 17 mcg/mL (<30); Alanine Aminotransferase 18 U/L (0-40); Albumin Level 4.7 g/dL (3.5-5.0); Alkaline Phosphatase 68 U/L (39-117); Anion Gap 13 (12-20); Aspartate Amino Transferase 31 U/L (5-37); Bilirubin Total 0.4 mg/dL (0.0-1.0); Blood Urea Nitrogen 14 mg/dL (9-16); Calcium 10.2 mg/dL (8.4-10.2); Carbon Dioxide 25 mmol/L (22-29); Chloride 108 mmol/L (96-108); Estimated Glomerular Filt Rate > 60; Ethanol < 10 mg/dL; Glucose Random 97 mg/dL (60-115); Potassium 4.2 mmol/L (3.3-5.1); Salicylate < 5.0 mg/dL (15-30); Sodium 142 mmol/L (135-145); Total Protein 7.9 g/dL (6.5-8.0)
--- NOTE | 2022-10-02 17:19 | MHC.CARE ---
CARE team attempted to met with pt, he is not able to engage in assessment currently and reports he feels really nauseas pt appears to be actively in withdrawal. Pt to be seen in AM, RN reports blood pressure still very low.
--- NOTE | 2022-10-02 17:56 | PHA.MEDREC ---
Pharmacy Consult ? Medication Reconciliation Pharmacy has reviewed the medication reconciliation completed by nursing.
--- NOTE | 2022-10-02 18:39 | PC.NURSE ---
Shawn was in the shower this morning at change of shift. He was observed vomiting multiple times during the morning and was c/o being cold, nauseous and having body aches. Recovery team consulted. ordered 20mg Methadone which had a positive effect. In bed resting for most of the day. Poor appetite.
--- NOTE | 2022-10-02 22:15 | MHC.CARE ---
Pt seen by CARE team and and is voluntary for inpatient level of care, he is pending acceptance.
[2022-10-03] MEDS: LORazepam 1 MG TABLET 2 MG PO (02:37)
--- NOTE | 2022-10-03 06:24 | PC.NURSE ---
Patient slept through the night, no distress observed/reported, disposition per care team is section 12 inpatient bed search, behavior non concerning, med rec completed/approved, Ativan 2 mg po administered at 0237 with + effect, VSS, labs completed, resulted, will continue to monitor.
[2022-10-03 06:28] VITALS: BP 115/76; PULSE 90; RESP 18; TEMP 37.1; O2SAT 98
[2022-10-03 07:17] VITALS: BP 127/79; PULSE 67; RESP 18; TEMP 36.9; O2SAT 100
[2022-10-03] MEDS: methADONE HCl 20 MG/2 ML ORAL.CONC PO (07:51)
[2022-10-03] MEDS: Ondansetron ODT 4 MG TAB.RAPDIS TRANSLINGU ×2 (07:51→19:42)
--- NOTE | 2022-10-03 08:17 | ECG_ITS ---
Test Reason : Medical Clearance Blood Pressure : / mmHG Vent. Rate : 055 BPM Atrial Rate : 055 BPM P-R Int : 110 ms QRS Dur : 086 ms QT Int : 418 ms P-R-T Axes : 039 077 053 degrees QTc Int : 399 ms Sinus bradycardia with short HI Otherwise normal ECG When compared with ECG of 01-OCT-2022 13:42, No significant change was found Referred By: Dante Ann Electronically Signed By:Mushtaq Ruiz
[2022-10-03 09:02] LABS: Appearance Urine Clear; Color Urine Yellow; Glucose Urine UA Negative (Negative); Leukocyte Esterase Urine Negative (Negative); Nitrite Urine Negative (Negative); Specific Gravity - Urine <= 1.005 (1.005-1.025); UMIC TRIGGER UACC YES; Urine Blood Small (1+) (Negative); Urine Ketones Negative (Negative); Urine Protein Negative (Neg-Trace)
[2022-10-03 09:12] LABS: Bacteria Urine None Seen (None Seen); Hyaline Casts Urine 0-2 /LPF (0-2); Squamous Epithelial Cell Urine 0-2 /HPF (0-2); WBC Urine 0-5 /HPF (0-5)
[2022-10-03 09:20] LABS: COVID-19 Test Negative (Negative); IDNOW Serial# 08D9AD1C
[2022-10-03 15:00] VITALS: BP 106/72; PULSE 68; TEMP 36.6; O2SAT 99
[2022-10-03 16:00] VITALS: PULSE 88
--- NOTE | 2022-10-03 16:57 | PC.ADMIT ---
pt is a 27 year old male who presented to [facility] ED with psychosis and opioid use disorder. pt tox screen was positive of THC and opioids. during admission, pt stated he did not need to be here, but signed all legals and has a CV. pt answered all questions during admission. pt appeared to be sleepy and needed help standing up out of wheelchair. pt appeared to ambulate normally after laying in bed. pt appears to be confused at points. start treament plan and promote safety.
[2022-10-03] MEDS: cloNIDine HCL 0.1 MG TABLET PO (19:43)
[2022-10-03] MEDS: traZODone HCL 50 MG TABLET PO ×2 (19:49→23:26)
--- NOTE | 2022-10-03 19:50 | PC.NURSE ---
Pt a Three Day Notice on Thursday10/03/2022 up on Thursday10/08/2022.
[2022-10-03] MEDS: hydrOXYzine HCL 25 MG TABLET PO (23:26)
[2022-10-04 00:10] VITALS: BP 113/62; PULSE 86; RESP 20; O2SAT 95
[2022-10-04] MEDS: cloNIDine HCL 0.1 MG TABLET PO ×2 (00:22→20:12)
[2022-10-04 00:25] VITALS: PULSE 86
[2022-10-04 06:00] VITALS: BP 97/64; PULSE 81; RESP 16
[2022-10-04] MEDS: hydrOXYzine HCL 25 MG TABLET PO ×3 (06:29→23:26)
[2022-10-04] MEDS: Ondansetron ODT 4 MG TAB.RAPDIS TRANSLINGU ×2 (06:29→17:43)
[2022-10-04 09:14] LABS: Estimated Average Glucose 100 mg/dL; Hemoglobin A1c % 5.1 %
[2022-10-04 09:20] LABS: Alanine Aminotransferase 15 U/L (0-40); Albumin Level 4.1 g/dL (3.5-5.0); Alkaline Phosphatase 62 U/L (39-117); Anion Gap 12 (12-20); Aspartate Amino Transferase 18 U/L (5-37); Bilirubin Total 0.7 mg/dL (0.0-1.0); Blood Urea Nitrogen 15 mg/dL (9-16); Calcium 9.5 mg/dL (8.4-10.2); Carbon Dioxide 26 mmol/L (22-29); Chloride 104 mmol/L (96-108); Cholesterol 148 mg/dL; Creatinine Clr Calc Pharmacy 94.3; Estimated Glomerular Filt Rate > 60; Glucose Fasting 95 mg/dL (60-99); HDL Cholesterol 40 mg/dL; LDL Cholesterol Calculated 85 mg/dl; Potassium 3.7 mmol/L (3.3-5.1); Sodium 138 mmol/L (135-145); Total Protein 6.9 g/dL (6.5-8.0); Triglycerides 119 mg/dL
[2022-10-04 09:38] LABS: Thyroid Stimulating Hormone 0.76 uIU/mL (0.32-4.0)
[2022-10-04 09:46] LABS: Vitamin B12 707 pg/mL (200-900)
[2022-10-04] MEDS: methADONE HCl 20 MG/2 ML ORAL.CONC PO (10:36)
[2022-10-04] MEDS: Albuterol Sulfate 90 MCG 8 GM INHALER 2 PUFF INHALE ×3 (10:38→21:54)
--- NOTE | 2022-10-04 11:03 | P.HPPS_ITS ---
HPI Date of Service: 10/04/22 Chief Complaint: CRISIS SI Sources of Information: patient interviewed, chart reviewed and crisis/core team assessment reviewed HPI Subjective Notes: Jacobs Warning, Conditional Voluntary and 3 Day Narrative: The patient is a 27-year-old descent male, engage father of a 2-year-old boy, living with his partner and employ 2 food stamps for several years with no prior psychiatric history. Apparently as a child he was diagnosed with ADD but not following any treatment. The patient was brought to the e mergency room of [facility] after he was found overdosing on Klonopin. Apparently he ran away and later on his family track him down and brought him to the emergency room. As per the crisis report the patient has a past history of substance abuse mostly opioids and benzodiazepines and a past history of passive suicidal ideation. On interview the patient admitted that he had been using Percocet 30 mg up to 5 times a day and he has tried to quit by himself but he could not. He has tried benzodiazepines to try to detox himself. He stated that he accidentally took too much Klonopin and he was found sleeping in his car. He denies active suicidal attempt but he had been having passive suicidal ideation. He stated that he has been abusing opioids for the last 7 years, as per his report, only tablets not using heroin or any other drugs. He receive 1 dose of methadone in the emergency room and today in the morning he was shaky with active opiate withdrawal symptoms arm order 1 dose of mental 20 mg. He admitted depressive symptoms elicited by depressed mood, anhedonia, lack of energy and feelings of hopelessness. His able to contract for safety in the unit and he wants to receive treatment. He adamantly denies psychotic symptoms such as a loosen a shins or delusions. Past Psychiatric History: Diagnosis a child with ADD not following any treatment at this moment Medical Evaluation Reviewed: Yes [facility] Medical History (Updated 10/04/22 @ 11:11 by Eladio Champion) Anxiety Asthma Surgical History H/O circumcision Family History: He reports that his mother suffer from bipolar disorder her father with depression and anxiety. Social History: The patient is the 2nd of 3 children, his milestones were achieved at expected age and apparently he was diagnosed with the when he was a child. He stated that his family have several cases of substance abuse. He is currently living with his partner and he is a father of a 2-year-old son. He states that he has good social support provided by his family. Substance History: He denies use of cocaine or heroin he had been abusing Percocet another prescription opiates for the last 7 years that it has been progressively increasing. No prior treatment of substance abuse as per his report Trauma History: Denies Diagnostics Vital Signs (24Hr): Vital Signs - 24 hr 10/03/22 15:00 10/04/22 00:10 10/04/22 06:00 Temperature 97.8 F Pulse Rate 68 86 81 Respiratory Rate 20 16 Blood Pressure 106/72 113/62 97/64 Pulse Oximetry 99 95 Oxygen Delivery Method Room Air Room Air BMI result Body Mass Index 18.5 Labs 10/02/22 13:07 10/04/22 08:05 Labs: Laboratory Results - last 48 hr 10/02/22 10/02/22 10/02/22 13:07 13:07 13:07 WBC 8.8 RBC 4.74 Hgb 14.0 Hct 42.0 MCV 88.6 MCH 29.5 MCHC 33.3 RDW 13.5 Plt Count 222 MPV 10.2 Immature Gran % (Auto) 0.3 Neut % (Auto) 88.4 H Lymph % (Auto) 7.2 L [place] % (Auto) 3.8 Eos % (Auto) 0.1 Baso % (Auto) 0.2 Lymph # (Auto) 0.6 L [place] # (Auto) 0.3 Eos # (Auto) 0.0 Baso # (Auto) 0.0 Abs Immat Gran (auto) 0.03 Absolute Neuts (auto) 7.8 Absolute Nucleated RBC 0.000 Nucleated RBC % (auto) 0.0 Sodium 142 Potassium 4.2 Chloride 108 Carbon Dioxide 25 Anion Gap 13 BUN 14 Creatinine 1.04 Estim Creat Clear Calc 87.0 Estimated GFR > 60 Random Glucose 97 Fasting Glucose Estimat Average Glucose Hemoglobin A1c % Calcium 10.2 D Total Bilirubin 0.4 AST 31 ALT 18 Alkaline Phosphatase 68 Total Protein 7.9 Albumin 4.7 Triglycerides Cholesterol LDL Cholesterol, Calc HDL Cholesterol Vitamin B12 TSH Urine Color Urine Appearance Urine pH Ur Specific [place] Urine Protein Urine Glucose (UA) Urine Ketones Urine Blood Urine Nitrite Ur Leukocyte Esterase Urine RBC Urine WBC Ur Squamous Epith Cells Urine Bacteria Hyaline Casts Salicylates < 5.0 L Acetaminophen < 17 Ethyl Alcohol < 10 COVID-19 ([facility]) COVID-19 Clin Com 10/03/22 10/03/22 10/04/22 08:51 08:51 08:05 WBC RBC Hgb Hct MCV MCH MCHC RDW Plt Count MPV Immature Gran % (Auto) Neut % (Auto) Lymph % (Auto) [place] % (Auto) Eos % (Auto) Baso % (Auto) Lymph # (Auto) [place] # (Auto) Eos # (Auto) Baso # (Auto) Abs Immat Gran (auto) Absolute Neuts (auto) Absolute Nucleated RBC Nucleated RBC % (auto) Sodium 138 Potassium 3.7 Chloride 104 Carbon Dioxide 26 Anion Gap 12 BUN 15 Creatinine 0.96 Estim Creat Clear Calc 94.3 Estimated GFR > 60 Random Glucose Fasting Glucose 95 Estimat Average Glucose Hemoglobin A1c % Calcium 9.5 D Total Bilirubin 0.7 AST 18 ALT 15 Alkaline Phosphatase 62 Total Protein 6.9 Albumin 4.1 Triglycerides 119 Cholesterol 148 LDL Cholesterol, Calc 85 HDL Cholesterol 40 Vitamin B12 TSH 0.76 Urine Color Yellow Urine Appearance Clear Urine pH 7.0 Ur Specific [place] <= 1.005 Urine Protein Negative Urine Glucose (UA) Negative Urine Ketones Negative Urine Blood Small (1+) H Urine Nitrite Negative Ur Leukocyte Esterase Negative Urine RBC 3-5 H Urine WBC 0-5 Ur Squamous Epith Cells 0-2 Urine Bacteria None Seen Hyaline Casts 0-2 Salicylates Acetaminophen Ethyl Alcohol COVID-19 ([facility]) Negative COVID-19 Clin Com See Note 10/04/22 10/04/22 08:05 08:05 WBC RBC Hgb Hct MCV MCH MCHC RDW Plt Count MPV Immature Gran % (Auto) Neut % (Auto) Lymph % (Auto) [place] % (Auto) Eos % (Auto) Baso % (Auto) Lymph # (Auto) [place] # (Auto) Eos # (Auto) Baso # (Auto) Abs Immat Gran (auto) Absolute Neuts (auto) Absolute Nucleated RBC Nucleated RBC % (auto) Sodium Potassium Chloride Carbon Dioxide Anion Gap BUN Creatinine Estim Creat Clear Calc Estimated GFR Random Glucose Fasting Glucose Estimat Average Glucose 100 Hemoglobin A1c % 5.1 Calcium Total Bilirubin AST ALT Alkaline Phosphatase Total Protein Albumin Triglycerides Cholesterol LDL Cholesterol, Calc HDL Cholesterol Vitamin B12 707 TSH Urine Color Urine Appearance Urine pH Ur Specific [place] Urine Protein Urine Glucose (UA) Urine Ketones Urine Blood Urine Nitrite Ur Leukocyte Esterase Urine RBC Urine WBC Ur Squamous Epith Cells Urine Bacteria Hyaline Casts Salicylates Acetaminophen Ethyl Alcohol COVID-19 ([facility]) COVID-19 Clin Com Meds/Allergies Meds Home Medications Medication Instructions Recorded Confirmed Type albuterol sulfate 90 mcg/actuation 2 puff inhalation QID PRN 05/17/20 10/01/22 History aerosol inhaler Shortness Of Breath Or Wheezing Allergies Allergies Allergy/AdvReac Type Severity Reaction Status Date / Time No Known Allergies Allergy Verified 09/12/22 10:42 Mental Status Exam Mental Status Exam Patient Appearance: Appropriate (On hospital gowns) Patient Orientation: Person, Place and Situation Level of Consciousness: Awake and Appropriate Patient Behavior: Appropriate, Cooperative and Passive Mood Description: Calm Affect Description: Constricted Patient Cognition Impaired: No Ability to Follow Directions: Good Speech Pattern: Clear Hallucinations: None Delusions: Not Present Thought Process: Linear Thought Content: positive for Circumstantial Judgement: Fair Assessment & Plan Assessment & Plan (1) Depression: Status: Acute Code(s): F32.A - Depression, unspecified (2) Opioid use disorder: Status: Acute Code(s): F11.90 - Opioid use, unspecified, uncomplicated Plan The patient is a young descent male with no prior psychiatric history admitted into the emergency room for an accidental overdose of benzodiazepines. The patient admitted that he had been abusing opioids for the several years and he tried to use benzodiazepines in an attempt to taper him off but he overdose on those medications. He reports also history of depression that has not been treated. Plan 1. Gather collateral information. 2. Start Remeron 15 mg p.o. q.h.s. to target depression and poor sleep. 2. Middle 20 mg p.o. daily q.a.m.. 4. Consult to Addiction Medicine. 5. Continue with comfort meds for opiate withdrawal. 6. 15 minute checks, the patient is able to contract for safety in the facility. Patient educated on: diagnosis and therapeutic strategies Informed Consent: understands Reason for continued inpatient stay Substantial Risk for: harm to self, inability to function, rapid decompensation and med/psych decompensation Statement Statement: I have reviewed the history and physical and performed a pertinent examination on my patient. No changes have occurred unless specified. If the History and Physical was not performed prior to admission, the Hospitalist's service will be consulted for completing the admission physical. Time Spent With Patient Time: Total time managing care of this patient today __45__ minutes.
[2022-10-04] MEDS: Cyclobenzaprine HCl 10 MG TABLET PO ×2 (17:39→23:26)
[2022-10-04 18:00] VITALS: BP 122/70; PULSE 70; RESP 17; TEMP 36.6; O2SAT 98
[2022-10-04] MEDS: traZODone HCL 50 MG TABLET PO (20:12)
[2022-10-04] MEDS: Acetaminophen 325 MG TABLET 650 MG PO (20:12)
[2022-10-04] MEDS: methADONE HCl 20 MG/2 ML ORAL.CONC 10 MG PO (21:54)
[2022-10-05 06:00] VITALS: BP 103/67; PULSE 85; RESP 18
[2022-10-05 08:00] VITALS: PULSE 85
[2022-10-05] MEDS: hydrOXYzine HCL 25 MG TABLET PO ×2 (08:33→19:24)
[2022-10-05] MEDS: methADONE HCl 20 MG/2 ML ORAL.CONC PO (08:33)
[2022-10-05] MEDS: Albuterol Sulfate 90 MCG 8 GM INHALER 2 PUFF INHALE ×2 (08:51→22:04)
--- NOTE | 2022-10-05 11:53 | HO.ADDICT_ITS ---
History of Present Illness Date of Service: 10/05/2022 Chief Complaint: CRISIS SI Reason for Consult: OUD Sources of Information: patient interviewed and chart reviewed HPI Narrative: Patient is a 27 year old male currently admitted to unit with depression and suicidal ideation. Consult requested as patient was initiated on methadone while in ED for opioid withdrawal. Patient has been receiving methadone 20mg daily for the last 4 days. Patient seen on M5, awake, alert, engaged in interview. Patient walking around with a blanket wrapped around him. He reports using prescription Oxycodone on and off over the last 5 years. He states that over the last year to 18months his use increased to daily. This s ummer he began to use them intranasal as opposed to PO like he had been. He reports using 30mg percocets 5 tabs daily. Prior to admission he states he used 16 tabs in one day--unclear why. Denies any other opioid use--denies heroin or fentanyl use. Reports one other overdose in 2017 when he states he took 8 Xanax when he was partying with his friends. Was hospitalized as a result. Denies any alcohol use (however, license currently suspended due to OUI) Denies cocaine use, or benzodiazepine use. Asked about taking Klonopin prior to admission, he states this was an attempt to detox from the percs . Treatment History: -Denies any formal EMILY treatment -Has taken Suboxone several times as a way to come off of percocet over the years. Family hx: -Brother with OUD -several other family family members with EMILY Discussed patient's goals in terms of addressing his OUD. Initially he expressed desire to taper off of methadone and be done with all of this . After some discussion and review of previous attempts to discontinue use, patient agreeable to continuing treatment beyond this admission and works towards obtaining additional recovery supports. He identifies his almost 2 year old son as a major motivation to engaged in treatment. He would like to increase dose as he is having withdrawal sx in the evening (restlessness, difficulty sleeping, anxious) Past Psychiatric History: Diagnosis a child with ADD not following any treatment at this moment Review of Systems Constitutional: Reports as per HPI Diagnostics Vital Signs (24Hr): Vital Signs - 24 hr 10/04/22 18:00 10/05/22 06:00 Temperature 97.8 F Pulse Rate 70 85 Respiratory Rate 17 18 Blood Pressure 122/70 103/67 Pulse Oximetry 98 Oxygen Delivery Method Room Air BMI result Body Mass Index 18.5 Labs 10/02/22 13:07 10/04/22 08:05 Labs: Laboratory Results - last 48 hr 10/04/22 10/04/22 10/04/22 08:05 08:05 08:05 Sodium 138 Potassium 3.7 Chloride 104 Carbon Dioxide 26 Anion Gap 12 BUN 15 Creatinine 0.96 Estim Creat Clear Calc 94.3 Estimated GFR > 60 Fasting Glucose 95 Estimat Average Glucose 100 Hemoglobin A1c % 5.1 Calcium 9.5 D Total Bilirubin 0.7 AST 18 ALT 15 Alkaline Phosphatase 62 Total Protein 6.9 Albumin 4.1 Triglycerides 119 Cholesterol 148 LDL Cholesterol, Calc 85 HDL Cholesterol 40 Vitamin B12 707 TSH 0.76 Mental Status Exam Mental Status Exam Patient Appearance: Appropriate Level of Consciousness: Awake and Appropriate Patient Behavior: Appropriate and Cooperative Mood Description: Calm Affect Description: Calm Thought Process: Goal Oriented Judgement: Fair Medications Medications Current Medications Acetaminophen (Acetaminophen 325 Mg Tablet) 650 mg PO Q6H PRN PRN Reason: Headache/Pain Mild Scale (1-3) Last Admin: 10/04/22 20:12 Dose: 650 mg Al Hydroxide/Mg Hydroxide (Magnesium Hydrox/Alum Hydrox 30 Ml Oral.Susp) 30 ml PO Q6H PRN PRN Reason: Heartburn/Nausea Albuterol Sulfate (Albuterol Sulfate 90 Mcg 8 Gm Inhaler) 2 puff INHALE QID PRN PRN Reason: Shortness Of Breath Or Wheezing Last Admin: 10/05/22 08:51 Dose: 2 puff Clonidine HCl (Clonidine Hcl 0.1 Mg Tablet) 0.1 mg PO TID PRN; Protocol PRN Reason: Palpitations Last Admin: 10/04/22 20:12 Dose: 0.1 mg Cyclobenzaprine HCl (Cyclobenzaprine Hcl 10 Mg Tablet) 10 mg PO TID PRN PRN Reason: muscle spams Last Admin: 10/04/22 23:26 Dose: 10 mg Hydroxyzine HCl (Hydroxyzine Hcl 25 Mg Tablet) 25 mg PO Q6H PRN PRN Reason: Anxiety Last Admin: 10/05/22 08:33 Dose: 25 mg Magnesium Hydroxide (Milk Of Magnesia 30 Ml Oral.Susp) 30 ml PO DAILY PRN PRN Reason: Constipation Methadone HCl (Methadone Hcl 20 Mg/2 Ml Oral.Conc) 30 mg PO DAILY DIAMOND Ondansetron HCl (Ondansetron Odt 4 Mg Tab.Rapdis) 4 mg TRANSLINGU Q6H PRN PRN Reason: Nausea Last Admin: 10/04/22 17:43 Dose: 4 mg Trazodone HCl (Trazodone Hcl 50 Mg Tablet) 50 mg PO BEDTIME MRX1 PRN PRN Reason: Insomnia Last Admin: 10/04/22 20:12 Dose: 50 mg Allergies Allergies Allergy/AdvReac Type Severity Reaction Status Date / Time No Known Allergies Allergy Verified 09/12/22 10:42 Assessment & Plan Assessment & Plan (1) Opioid use disorder: Status: Acute Code(s): F11.90 - Opioid use, unspecified, uncomplicated Assessment and Plan: * methadone 10mg x1 today * methadone 30mg QD * Referral needs to be placed to [facility] [place] for direct admission upon discharge from [facility] * seed laboratory assistant to follow up in AM Total time managing care of this patient today _40___ minutes. PMFSH Past Medical History Medical History (Updated 10/04/22 @ 11:11 by Eladio Champion) Anxiety Asthma Surgical History Surgical History H/O circumcision Social History Social History Household Members: Family Housing: Apartment Alcohol intake: unknown Patient Tobacco Use Status: Never used Tobacco Use of substances other than those prescribed or required for medical reasons: Yes Substance Use Type: Marijuana, Opiates and Prescription Drugs Substance Use Frequency: Chronic Longstanding Last Used Substance: Just Prior to Admission Currently Displaying Signs/Symptoms of Drug Intoxication Withdrawal: No Any prior treatment program specific to substance use: No Have you been hit, kicked, punched, or otherwise hurt by someone within the past year? If so, by whom?: No Do you feel safe in your current relationship?: Yes Is there a partner from a previous relationship who is making you feel unsafe now?: No Are you made to feel afraid or neglected: No Advance Directives: No Advance Directives Information Provided: No Healthcare Proxy: No Guardian: No Do you have thoughts of harming others: None Do you have a plan to hurt others: No Plan Recently lost weight without trying: No How much weight loss: Not applicable Eating poorly because of decreased appetite: No Nutrition screen score: 0 Nutrition Risks: No Nutritional Risk Poor oral hygiene: No Current occupational status: unemployed Current occupation: right hand dominant
[2022-10-05] MEDS: methADONE HCl 20 MG/2 ML ORAL.CONC 10 MG PO (13:07)
--- NOTE | 2022-10-05 13:20 | P.PNPSI_ITS ---
Subjective Subjective Date of Service: 10/05/22 Reason For Visit: CRISIS SI Subjective Notes: Conditional Voluntary and 3 Day Interim History: The nursing staff reported the patient had been less anxious since he had been taking methadone. He was seen by addition Medicine and adjustments to his methadone were done. On interview the patient feels much better, less anxious and dysphoric hopeful for a better treatment in the future. No active suicidal ideation. Mental Status Exam Mental Status Exam Patient Appearance: Well Grooomed and Appropriate Patient Orientation: Person and Situation Level of Consciousness: Awake and Appropriate Patient Behavior: Guarded and Passive Mood Description: Withdrawn Affect Description: Constricted Patient Cognition Impaired: Yes Ability to Follow Directions: Good Speech Pattern: Clear Hallucinations: None Delusions: Not Present Thought Process: Linear Thought Content: positive for Circumstantial Judgement: Fair Diagnostics Vital Signs (24Hr): Vital Signs - 24 hr 10/04/22 18:00 10/05/22 06:00 Temperature 97.8 F Pulse Rate 70 85 Respiratory Rate 17 18 Blood Pressure 122/70 103/67 Pulse Oximetry 98 Oxygen Delivery Method Room Air BMI result Body Mass Index 18.5 Labs 10/02/22 13:07 10/04/22 08:05 Labs: Laboratory Results - last 48 hr 10/04/22 10/04/22 10/04/22 08:05 08:05 08:05 Sodium 138 Potassium 3.7 Chloride 104 Carbon Dioxide 26 Anion Gap 12 BUN 15 Creatinine 0.96 Estim Creat Clear Calc 94.3 Estimated GFR > 60 Fasting Glucose 95 Estimat Average Glucose 100 Hemoglobin A1c % 5.1 Calcium 9.5 D Total Bilirubin 0.7 AST 18 ALT 15 Alkaline Phosphatase 62 Total Protein 6.9 Albumin 4.1 Triglycerides 119 Cholesterol 148 LDL Cholesterol, Calc 85 HDL Cholesterol 40 Vitamin B12 707 TSH 0.76 Medications Medications Current Medications Acetaminophen (Acetaminophen 325 Mg Tablet) 650 mg PO Q6H PRN PRN Reason: Headache/Pain Mild Scale (1-3) Last Admin: 10/04/22 20:12 Dose: 650 mg Al Hydroxide/Mg Hydroxide (Magnesium Hydrox/Alum Hydrox 30 Ml Oral.Susp) 30 ml PO Q6H PRN PRN Reason: Heartburn/Nausea Albuterol Sulfate (Albuterol Sulfate 90 Mcg 8 Gm Inhaler) 2 puff INHALE QID PRN PRN Reason: Shortness Of Breath Or Wheezing Last Admin: 10/05/22 08:51 Dose: 2 puff Clonidine HCl (Clonidine Hcl 0.1 Mg Tablet) 0.1 mg PO TID PRN; Protocol PRN Reason: Palpitations Last Admin: 10/04/22 20:12 Dose: 0.1 mg Cyclobenzaprine HCl (Cyclobenzaprine Hcl 10 Mg Tablet) 10 mg PO TID PRN PRN Reason: muscle spams Last Admin: 10/04/22 23:26 Dose: 10 mg Hydroxyzine HCl (Hydroxyzine Hcl 25 Mg Tablet) 25 mg PO Q6H PRN PRN Reason: Anxiety Last Admin: 10/05/22 08:33 Dose: 25 mg Magnesium Hydroxide (Milk Of Magnesia 30 Ml Oral.Susp) 30 ml PO DAILY PRN PRN Reason: Constipation Methadone HCl (Methadone Hcl 20 Mg/2 Ml Oral.Conc) 30 mg PO DAILY DIAMOND Methadone HCl (Methadone Hcl 20 Mg/2 Ml Oral.Conc) 10 mg PO ONCE ONE Stop: 10/05/22 14:01 Last Admin: 10/05/22 13:07 Dose: 10 mg Ondansetron HCl (Ondansetron Odt 4 Mg Tab.Rapdis) 4 mg TRANSLINGU Q6H PRN PRN Reason: Nausea Last Admin: 10/04/22 17:43 Dose: 4 mg Trazodone HCl (Trazodone Hcl 50 Mg Tablet) 50 mg PO BEDTIME MRX1 PRN PRN Reason: Insomnia Last Admin: 10/04/22 20:12 Dose: 50 mg Allergies Allergies Allergy/AdvReac Type Severity Reaction Status Date / Time No Known Allergies Allergy Verified 09/12/22 10:42 Assessment & Plan Assessment & Plan (1) Opioid use disorder: Status: Acute Code(s): F11.90 - Opioid use, unspecified, uncomplicated Assessment and Plan: * methadone 10mg x1 today * methadone 30mg QD * Referral needs to be placed to [facility] for direct admission upon discharge from [facility] * bruise trimmer to follow up in AM Plan The patient is a young descent male with no prior psychiatric history admitted for suicidal ideation in the context of opiate use disorder. He was transferring to this facility for psychiatric stabilization. Plan 1. Gather collateral information. 2. Continue with Remeron for depression. 3. Continue with recommendations of Addiction Medicine. 4. Fifteen minutes checks. Reason for continued inpatient stay Substantial Risk for: inability to function, rapid decompensation and med/psych decompensation Time Spent With Patient Time: Total time managing care of this patient today _20___ minutes.
[2022-10-05 18:00] VITALS: BP 135/87; PULSE 95; TEMP 36.2; O2SAT 99
[2022-10-05] MEDS: Cyclobenzaprine HCl 10 MG TABLET PO (20:47)
[2022-10-05] MEDS: traZODone HCL 50 MG TABLET PO ×2 (20:47→23:47)
[2022-10-06 06:00] VITALS: BP 118/78; PULSE 80; RESP 18
[2022-10-06] MEDS: Albuterol Sulfate 90 MCG 8 GM INHALER 2 PUFF INHALE ×2 (08:31→19:05)
[2022-10-06] MEDS: methADONE HCl 20 MG/2 ML ORAL.CONC 30 MG PO (08:31)
[2022-10-06] MEDS: cloNIDine HCL 0.1 MG TABLET PO ×2 (12:21→16:44)
[2022-10-06 12:22] VITALS: BP 116/81; PULSE 80
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
[2022-10-06 16:40] VITALS: BP 108/68; PULSE 64; TEMP 36.5
[2022-10-06] MEDS: Acetaminophen 325 MG TABLET 650 MG PO (16:42)
[2022-10-06] MEDS: traZODone HCL 50 MG TABLET PO ×2 (20:13→23:29)
[2022-10-07] MEDS: Acetaminophen 325 MG TABLET 650 MG PO (06:38)
[2022-10-07] MEDS: methADONE HCl 20 MG/2 ML ORAL.CONC 30 MG PO (08:13)
[2022-10-07 08:43] VITALS: BP 107/71; PULSE 72; RESP 16; TEMP 36.3; O2SAT 100
--- NOTE | 2022-10-07 10:07 | P.PNPSI_ITS ---
Subjective Subjective Reason For Visit: CRISIS SI Diagnostics Vital Signs (24Hr): Vital Signs - 24 hr 10/06/22 12:22 10/06/22 16:40 10/07/22 08:43 Temperature 97.7 F 97.4 F Pulse Rate 80 64 72 Respiratory Rate 16 Blood Pressure 116/81 108/68 107/71 Pulse Oximetry 100 Oxygen Delivery Method Room Air BMI result Body Mass Index 18.5 Labs 10/02/22 13:07 10/04/22 08:05 Medications Medications Current Medications Acetaminophen (Acetaminophen 325 Mg Tablet) 650 mg PO Q6H PRN PRN Reason: Headache/Pain Mild Scale (1-3) Last Admin: 10/07/22 06:38 Dose: 650 mg Al Hydroxide/Mg Hydroxide (Magnesium Hydrox/Alum Hydrox 30 Ml Oral.Susp) 30 ml PO Q6H PRN PRN Reason: Heartburn/Nausea Albuterol Sulfate (Albuterol Sulfate 90 Mcg 8 Gm Inhaler) 2 puff INHALE QID PRN PRN Reason: Shortness Of Breath Or Wheezing Last Admin: 10/06/22 19:05 Dose: 2 puff Clonidine HCl (Clonidine Hcl 0.1 Mg Tablet) 0.1 mg PO TID PRN; Protocol PRN Reason: Palpitations Last Admin: 10/06/22 16:44 Dose: 0.1 mg Cyclobenzaprine HCl (Cyclobenzaprine Hcl 10 Mg Tablet) 10 mg PO TID PRN PRN Reason: muscle spams Last Admin: 10/05/22 20:47 Dose: 10 mg Hydroxyzine HCl (Hydroxyzine Hcl 25 Mg Tablet) 25 mg PO Q6H PRN PRN Reason: Anxiety Last Admin: 10/05/22 19:24 Dose: 25 mg Magnesium Hydroxide (Milk Of Magnesia 30 Ml Oral.Susp) 30 ml PO DAILY PRN PRN Reason: Constipation Methadone HCl (Methadone Hcl 20 Mg/2 Ml Oral.Conc) 30 mg PO DAILY DIAMOND Last Admin: 10/07/22 08:13 Dose: 30 mg Ondansetron HCl (Ondansetron Odt 4 Mg Tab.Rapdis) 4 mg TRANSLINGU Q6H PRN PRN Reason: Nausea Last Admin: 10/04/22 17:43 Dose: 4 mg Trazodone HCl (Trazodone Hcl 50 Mg Tablet) 50 mg PO BEDTIME MRX1 PRN PRN Reason: Insomnia Last Admin: 10/06/22 23:29 Dose: 50 mg Allergies Allergies Allergy/AdvReac Type Severity Reaction Status Date / Time No Known Allergies Allergy Verified 09/12/22 10:42 Assessment & Plan Assessment & Plan (1) Opioid use disorder: Status: Acute Code(s): F11.90 - Opioid use, unspecified, uncomplicated Assessment and Plan: * methadone 10mg x1 today * methadone 30mg QD * Referral needs to be placed to [facility] for direct admission upon discharge from [facility] * seal mixing operator to follow up in AM Plan The patient is a young descent male with no prior psychiatric history admitted for suicidal ideation in the context of opiate use disorder. He was transferring to this facility for psychiatric stabilization. Plan 1. Gather collateral information. 2. Continue with Remeron for depression. 3. Continue with recommendations of Addiction Medicine. 4. Fifteen minutes checks. 10/06/22 Three day notice to 10.07.22. Mom will come in at 12pm on 10.07.22 prior to discharge for family meeting. No medication changes today. Time Spent With Patient Time: Total time managing care of this patient today ____ minutes.
[2022-10-07] MEDS: Albuterol Sulfate 90 MCG 8 GM INHALER 2 PUFF INHALE (12:14)
--- NOTE | 2022-10-07 17:59 | P.DS_ITS ---
DS: Providers Provider Date of Service: 10/07/22 Date of admission: 10/03/22 13:42 Date of discharge: 10/07/22 Primary care physician: Adolph Salazar MD Admitting clinician: Eladio Champion Attending physician on admission: Eladio Champion Consults: 10/04/22 09:19 Addiction Medicine Routine Consulting Provider: Addiction Covering Reason for consultation: withdrawing of opioids Has provider been notified: No Attending physician on discharge: Lauri Lagunas Discharging clinician: Emilia Perez DS: Diagnosis Discharge Diagnosis (1) Opioid use disorder: Status: Acute DS: Medications Discharge Medications Home Medications: Home Medications Medication Instructions Recorded Confirmed albuterol sulfate 90 mcg/actuation 2 puff inhalation QID PRN 05/17/20 10/01/22 aerosol inhaler Shortness Of Breath Or Wheezing Previous Rx's Medication Instructions Recorded clonidine HCl 0.1 mg tablet 0.1 mg PO TID PRN Palpitations #30 10/07/22 tabs methadone 10 mg/mL oral 30 mg (3 mL) PO DAILY #0 mL 10/07/22 concentrate (Methadose) Mental Status Exam Mental Status Exam Patient Appearance: Appropriate Patient Orientation: Person, Place, Time and Situation Patient Behavior: Talkative, Cooperative and Good Eye Contact Mood Description: Apprehensive Affect Description: Apprehensive Ability to Follow Directions: Good Speech Pattern: Spontaneous Speech Memory Description: Intact and Episodic Impaired Hallucinations: None Delusions: Not Present Thought Process: Goal Oriented Thought Content: positive for Goal Oriented Depressive Symptoms: Increased Anxiety Judgement: Good Data Data Completed and Pending Completed studies during hospitalization [Text1]: 10/01/22 10/02/22 10/02/22 19:14 13:07 13:07 WBC 8.8 RBC 4.74 Hgb 14.0 Hct 42.0 MCV 88.6 MCH 29.5 MCHC 33.3 RDW 13.5 Plt Count 222 MPV 10.2 Immature Gran % (Auto) 0.3 Neut % (Auto) 88.4 H Lymph % (Auto) 7.2 L [place] % (Auto) 3.8 Eos % (Auto) 0.1 Baso % (Auto) 0.2 Lymph # (Auto) 0.6 L [place] # (Auto) 0.3 Eos # (Auto) 0.0 Baso # (Auto) 0.0 Abs Immat Gran (auto) 0.03 Absolute Neuts (auto) 7.8 Absolute Nucleated RBC 0.000 Nucleated RBC % (auto) 0.0 Sodium 142 Potassium 4.2 Chloride 108 Carbon Dioxide 25 Anion Gap 13 BUN 14 Creatinine 1.04 Estim Creat Clear Calc 87.0 Estimated GFR > 60 Random Glucose 97 Fasting Glucose Estimat Average Glucose Hemoglobin A1c % Calcium 10.2 D Total Bilirubin 0.4 AST 31 ALT 18 Alkaline Phosphatase 68 Total Protein 7.9 Albumin 4.7 Triglycerides Cholesterol LDL Cholesterol, Calc HDL Cholesterol Vitamin B12 TSH Urine Color Urine Appearance Urine pH Ur Specific [place] Urine Protein Urine Glucose (UA) Urine Ketones Urine Blood Urine Nitrite Ur Leukocyte Esterase Urine RBC Urine WBC Ur Squamous Epith Cells Urine Bacteria Hyaline Casts Salicylates Urine Opiates Screen POSITIVE H Urine Fentanyl Screen Not Detected Acetaminophen Ur Barbiturates Screen Not Detected Ur Phencyclidine Scrn Not Detected Ur Amphetamines Screen Not Detected U Benzodiazepines Scrn Not Detected Urine Cocaine Screen Not Detected U Marijuana (THC) Screen POSITIVE H Ethyl Alcohol < 10 COVID-19 ([facility]) COVID-19 Clin Com 10/02/22 10/03/22 10/03/22 13:07 08:51 08:51 WBC RBC Hgb Hct MCV MCH MCHC RDW Plt Count MPV Immature Gran % (Auto) Neut % (Auto) Lymph % (Auto) [place] % (Auto) Eos % (Auto) Baso % (Auto) Lymph # (Auto) [place] # (Auto) Eos # (Auto) Baso # (Auto) Abs Immat Gran (auto) Absolute Neuts (auto) Absolute Nucleated RBC Nucleated RBC % (auto) Sodium Potassium Chloride Carbon Dioxide Anion Gap BUN Creatinine Estim Creat Clear Calc Estimated GFR Random Glucose Fasting Glucose Estimat Average Glucose Hemoglobin A1c % Calcium Total Bilirubin AST ALT Alkaline Phosphatase Total Protein Albumin Triglycerides Cholesterol LDL Cholesterol, Calc HDL Cholesterol Vitamin B12 TSH Urine Color Yellow Urine Appearance Clear Urine pH 7.0 Ur Specific [place] <= 1.005 Urine Protein Negative Urine Glucose (UA) Negative Urine Ketones Negative Urine Blood Small (1+) H Urine Nitrite Negative Ur Leukocyte Esterase Negative Urine RBC 3-5 H Urine WBC 0-5 Ur Squamous Epith Cells 0-2 Urine Bacteria None Seen Hyaline Casts 0-2 Salicylates < 5.0 L Urine Opiates Screen Urine Fentanyl Screen Acetaminophen < 17 Ur Barbiturates Screen Ur Phencyclidine Scrn Ur Amphetamines Screen U Benzodiazepines Scrn Urine Cocaine Screen U Marijuana (THC) Screen Ethyl Alcohol COVID-19 ([facility]) Negative COVID-19 Clin Com See Note 10/04/22 10/04/22 10/04/22 08:05 08:05 08:05 WBC RBC Hgb Hct MCV MCH MCHC RDW Plt Count MPV Immature Gran % (Auto) Neut % (Auto) Lymph % (Auto) [place] % (Auto) Eos % (Auto) Baso % (Auto) Lymph # (Auto) [place] # (Auto) Eos # (Auto) Baso # (Auto) Abs Immat Gran (auto) Absolute Neuts (auto) Absolute Nucleated RBC Nucleated RBC % (auto) Sodium 138 Potassium 3.7 Chloride 104 Carbon Dioxide 26 Anion Gap 12 BUN 15 Creatinine 0.96 Estim Creat Clear Calc 94.3 Estimated GFR > 60 Random Glucose Fasting Glucose 95 Estimat Average Glucose 100 Hemoglobin A1c % 5.1 Calcium 9.5 D Total Bilirubin 0.7 AST 18 ALT 15 Alkaline Phosphatase 62 Total Protein 6.9 Albumin 4.1 Triglycerides 119 Cholesterol 148 LDL Cholesterol, Calc 85 HDL Cholesterol 40 Vitamin B12 707 TSH 0.76 Urine Color Urine Appearance Urine pH Ur Specific [place] Urine Protein Urine Glucose (UA) Urine Ketones Urine Blood Urine Nitrite Ur Leukocyte Esterase Urine RBC Urine WBC Ur Squamous Epith Cells Urine Bacteria Hyaline Casts Salicylates Urine Opiates Screen Urine Fentanyl Screen Acetaminophen Ur Barbiturates Screen Ur Phencyclidine Scrn Ur Amphetamines Screen U Benzodiazepines Scrn Urine Cocaine Screen U Marijuana (THC) Screen Ethyl Alcohol COVID-19 ([facility]) COVID-19 Clin Com DS: Summary Hospital Course Hospital Course: 27 yo male, admitted from the ER for opiate withdrawal and questionable klonopin overdose. Pt reported using Percocet 30 mg 5 times per day for ~7years. He reports he took a klonopin on the advice of his sister in law to help with withdrawal sx, however had no intent to ( I have a son ). Pt was intoxicated, ran from police and then reported passive SI due to fear of being arrested. Pt agreed to admission to detox. He was seen by the addiction team and Methadone was initiated with positive results. Remeron was initiated as well, however, pt declined to continue it, asking to continue Clonidine instead as it has been more effective. Pt signed a three day notice of intent. Today, prior to discharge a family meeting was held with pt and his mother. His mother describes one of his friends, who helped the patient prior to admit to get to the hospital safely, having overdosed and on Thursday evening. Pt's mother was able to express her concerns, pt was able to respond, and move forward to discharge. Pt plans to continue Methadone. He has accepted out patient referrals for therapy and psychopharmacolgy and will call/return as needed. Time spent discussing smoking cessation with patient: 3 to 10 minutes Status at Discharge Functional status at discharge: independent ambulation Overall status at discharge: patient is back to baseline Time Spent with Patient Time attestation: Total time managing care of this patient today ____ minutes. Time spent: Greater than 30 minutes Discharge Plan Discharge Anticipated Discharge Date/Time: 10/07/22 13:00 Patient Disposition: Home, Self-Care Discharge Diagnosis: Anxiety Opiate Use Disorder Referrals: Anastasiya BATRES [Other] - 10/08/22 8:30 am Adolph Salazar MD [Primary Care Provider] - Discharge Medications: New clonidine HCl 0.1 mg Tablet 0.1 mg PO TID PRN (Reason: Palpitations) Qty: 30 0RF Protocol: Hold for SBP< HOLD for SBP < : 90 methadone [Methadose] 10 mg/mL Concentrate 30 mg PO DAILY Qty: 0 0RF Rx Instructions: Partial Fill upon patient request. Continued albuterol sulfate 90 mcg/actuation HFA aerosol inhaler 2 puff inhalation QID PRN (Reason: Shortness Of Breath Or Wheezing) Discharge Orders: Discharge Order (Routine); Ordered 10/07/22 Ordered By: Emilia Perez Diet: Advance to usual diet Activity on Discharge: As tolerated Stand Alone Forms: Patient Portal Discharge page, Community Support Care Plan Goals: Mood and behavioral stabilization Work on sobriety Health Concerns: Mood and behavioral stabilization Sobriety Plan of Treatment: Attend scheduled appointments Take medications as directed Assessment: Pt leaves on a three day notice. Pt interviewed prior to discharge and found to be fully oriented and without SI/HI. Pt has insight and demonstrates good judgment in terms of wanting to pursue treatment. Pt is not in imminent risk of harm to self or others and has a safety plan that includes presenting to the closest ER or calling 911 if feeling unsafe. Pt has been observed closely by nursing and unit staff throughout admission. Pt has not engaged in any behaviors that suggest dangerousness to self or others and has demonstrated appropriate behaviors and impulse control. Discharge Date/Time: 10/07/22 14:14
== END 2022-10-07 14:14 | disposition home or self-care (01) | DRG 754 ==
LOC: HO.ED 10-03 06:45 → HO.PM5 10-03 14:00
PROVIDERS: Internal Medicine; Student in an Organized Health Care Education/Training Program; Admitting Provider Social Worker; Emergency Provider Emergency Medicine Emergency Medical Services; PCP Internal Medicine; Visit Provider Clinical Nurse Specialist Psychiatric/Mental Health, Adult
DX: F32.A Depression, unspecified (principal); R45.851 Suicidal ideations; F41.9 Anxiety disorder, unspecified; F11.20 Opioid dependence, uncomplicated; Z20.822 Contact with and (suspected) exposure to COVID-19; Z79.899 Other long term (current) drug therapy
CPT/HCPCS: 36415; 80053; 80061; 80143; 80179; 80307; 81001; 82607; 83036; 84443; 85025; 87635; 93005; 99285; J2060; J3486; S9485

== ENCOUNTER → 2022-10-03 08:17 | Outpatient (BNV) | payer MEDICAID, SELFPAY | PROVIDERS: Admitting Provider Social Worker; Emergency Provider Emergency Medicine Emergency Medical Services; PCP Internal Medicine; Visit Provider Internal Medicine Cardiovascular Disease | DX: R00.1 Bradycardia, unspecified (principal) | CPT/HCPCS: 93010 ==

== ENCOUNTER → 2022-10-03 13:42 | Outpatient (BNV) | payer OTHER, SELFPAY | PROVIDERS: Admitting Provider Social Worker; Emergency Provider Emergency Medicine Emergency Medical Services; PCP Internal Medicine; Visit Provider Psychiatry & Neurology Psychiatry | DX: F11.20 Opioid dependence, uncomplicated (principal) | CPT/HCPCS: 99221; 99232; 99499 ==

== ENCOUNTER 2023-01-13 12:57 | Emergency (ER) | payer MEDICAID, SELFPAY ==
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
[2023-01-13 13:15] VITALS: BP 128/86; PULSE 99; RESP 19; TEMP 36.6; O2SAT 99; BMI 18.5
[2023-01-13 13:36] LABS: MANUAL DIFF FLAG NO
[2023-01-13 13:38] LABS: Basophils Absolute Auto 0.1 X10*3/uL (0.0-0.2); Basophils Percent Auto 0.5 % (0-2); Eosinophils Absolute Auto 0.5 X10*3/uL (0.0-0.4); Eosinophils Percent Auto 3.9 % (0-4); Hematocrit 45.8 % (42.0-52.0); Hemoglobin 15.1 g/dl (14.0-18.0); Imm Gran Abs Auto 0.08 X10*3/uL (0.00-0.03); Imm Gran Pct Auto 0.6 % (0.0-0.4); Lymphocytes Absolute Auto 1.7 X10*3/uL (1.2-4.9); Lymphocytes Percent Auto 12.3 % (20-40); Mean Corpuscular Hemoglobin 29.4 pg (27.0-33.0); Mean Corpuscular Volume 89.3 fL (80.0-98.0); Mean Platelet Volume 10.4 fL (9.4-12.4); Monocytes Absolute Auto 1.3 X10*3/uL (0.1-1.2); Monocytes Percent Auto 9.1 % (2-11); Neutrophils Absolute Auto 10.1 x10*3/uL (2.0-8.3); Neutrophils Percent Auto 73.6 % (45-73); Platelet Count 253 X10*3/uL (160-400); Red Blood Count 5.13 X10*6/uL (4.60-5.80); Red Cell Distribution Width 13.3 % (11.0-16.0); White Blood Count 13.7 X10*3/uL (4.8-10.8)
[2023-01-13 13:43] VITALS: RESP 16
[2023-01-13] MEDS: Diphth,Pertus(ACell),Tet Adult 0.5 ML SYRINGE IM (13:43)
[2023-01-13] MEDS: Morphine Sulfate 2 MG/ML CARTRIDGE IVPUSH (13:43)
[2023-01-13 13:51] LABS: INTERNATIONAL NORM RATIO 0.9 (0.9-1.1); Prothrombin Time 10.9 SEC (11.1-13.3)
[2023-01-13 13:54] LABS: Partial Thromboplastin Time 29.6 SEC (26.0-36.4)
[2023-01-13] MEDS: iohexoL 350 MG/ML 100 ML INFUS..BTL IV (14:03)
[2023-01-13 14:27] LABS: Anion Gap 7 (12-20)
[2023-01-13 14:31] LABS: Alanine Aminotransferase 18 U/L (0-40); Alkaline Phosphatase 60 U/L (39-117); Aspartate Amino Transferase 27 U/L (5-37); Bilirubin Direct < 0.2 mg/dL (0.0-0.5); Bilirubin Total 0.2 mg/dL (0.0-1.0); Blood Urea Nitrogen 13 mg/dL (9-16); Carbon Dioxide 30 mmol/L (22-29); Chloride 104 mmol/L (96-108); Estimated Glomerular Filt Rate > 60; Glucose Random 76 mg/dL (60-115); Lipase 8 U/L (8-78); Potassium 3.7 mmol/L (3.3-5.1); Sodium 137 mmol/L (135-145); Total Protein 6.6 g/dL (6.5-8.0)
[2023-01-13] MEDS: Lidocaine HCl 1 % MPF 5 ML VIAL INFILTRATI (15:14)
== END 2023-01-13 17:06 | disposition home or self-care (01) ==
PROVIDERS: Physician Assistant Medical; Emergency Provider Emergency Medicine Emergency Medical Services; PCP Internal Medicine
DX: S22.31XA Fracture of one rib, right side, initial encounter for closed fracture (principal); S22.059A Unspecified fracture of T5-T6 vertebra, initial encounter for closed fracture; S01.81XA Laceration without foreign body of other part of head, initial encounter; S00.01XA Abrasion of scalp, initial encounter; M79.652 Pain in left thigh; H57.12 Ocular pain, left eye; M54.2 Cervicalgia; M54.50 Low back pain, unspecified; M79.605 Pain in left leg; R10.11 Right upper quadrant pain; R07.89 Other chest pain; V89.9XXA Person injured in unspecified vehicle accident, initial encounter; Y93.9 Activity, unspecified; Y92.9 Unspecified place or not applicable; Y99.9 Unspecified external cause status; Z79.899 Other long term (current) drug therapy; Z23 Encounter for immunization
CPT/HCPCS: 12011; 36415; 70450; 70486; 71260; 72125; 73552; 74177; 80048; 80076; 83690; 85025; 85610; 85730; 90471; 90715; 96374; 99283; 99284; J2270; Q9967

== ENCOUNTER 2023-01-18 15:05 | Emergency (ER) | payer MEDICAID, SELFPAY ==
[2023-01-18 15:17] VITALS: BP 120/68; PULSE 75; RESP 16; TEMP 36.6; O2SAT 97; BMI 18.5
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
[2023-01-18] MEDS: Bacitracin Oint 0.9 GM PACKET 1 APPL TOPICAL (15:30)
== END 2023-01-18 15:31 | disposition home or self-care (01) ==
PROVIDERS: Emergency Provider Emergency Medicine; PCP Internal Medicine
DX: Z45.2 Encounter for adjustment and management of vascular access device (principal)
CPT/HCPCS: 99282; 99283

== ENCOUNTER 2023-02-09 13:35 | Outpatient (REF) | payer MEDICAID, SELFPAY ==
[2023-02-09 15:34] LABS: Amphetamine Screen Urine Not Detected (Not Detect); Barbiturates, Urine Not Detected (Not Detect); Benzodiazepines Screen Urine Not Detected (Not Detect); Cannabinoid Screen Urine Not Detected (Not Detect); Cocaine Screen Urine Not Detected (Not Detect); Fentanyl, urine Not Detected (Not Detect); Opiate Screen Urine Not Detected (Not Detect); Phencyclidine Screen Urine Not Detected (Not Detect)
== END 2023-02-09 13:36 | disposition home or self-care (01) ==
LOC: HO.LAB 13:35
PROVIDERS: PCP Internal Medicine; Visit Provider Internal Medicine
DX: Z02.83 Encounter for blood-alcohol and blood-drug test (principal)
CPT/HCPCS: 80307

== ENCOUNTER 2023-02-19 11:38 | Outpatient (REF) | payer MEDICAID, SELFPAY ==
[2023-02-19 14:40] LABS: Amphetamine Screen Urine Not Detected (Not Detect); Barbiturates, Urine Not Detected (Not Detect); Benzodiazepines Screen Urine Not Detected (Not Detect); Cannabinoid Screen Urine Not Detected (Not Detect); Cocaine Screen Urine Not Detected (Not Detect); Fentanyl, urine Not Detected (Not Detect); Opiate Screen Urine Not Detected (Not Detect); Phencyclidine Screen Urine Not Detected (Not Detect)
== END 2023-02-19 11:39 | disposition home or self-care (01) ==
LOC: HO.LAB 11:38
PROVIDERS: PCP Internal Medicine; Visit Provider Internal Medicine
DX: F19.11 Other psychoactive substance abuse, in remission (principal); Z51.81 Encounter for therapeutic drug level monitoring
CPT/HCPCS: 80307

== ENCOUNTER 2023-02-25 08:35 | Emergency (ER) | payer MEDICAID, SELFPAY ==
[2023-02-25 08:50] VITALS: BP 111/82; PULSE 74; RESP 20; TEMP 36.7; O2SAT 100; BMI 19.2
[2023-02-25 09:12] LABS: MANUAL DIFF FLAG NO
[2023-02-25 09:13] LABS: Basophils Percent Auto 0.4 % (0-2); Eosinophils Percent Auto 0.1 % (0-4); Hematocrit 41.7 % (42.0-52.0); Hemoglobin 14.6 g/dl (14.0-18.0); Imm Gran Abs Auto 0.05 X10*3/uL (0.00-0.03); Imm Gran Pct Auto 0.5 % (0.0-0.4); Lymphocytes Absolute Auto 0.9 X10*3/uL (1.2-4.9); Lymphocytes Percent Auto 8.1 % (20-40); Mean Corpuscular Hemoglobin 29.1 pg (27.0-33.0); Mean Corpuscular Volume 83.1 fL (80.0-98.0); Mean Platelet Volume 9.9 fL (9.4-12.4); Monocytes Absolute Auto 1.2 X10*3/uL (0.1-1.2); Monocytes Percent Auto 10.8 % (2-11); Neutrophils Absolute Auto 8.9 x10*3/uL (2.0-8.3); Neutrophils Percent Auto 80.1 % (45-73); Platelet Count 267 X10*3/uL (160-400); Red Blood Count 5.02 X10*6/uL (4.60-5.80); White Blood Count 11.1 X10*3/uL (4.8-10.8)
[2023-02-25 09:30] LABS: Alanine Aminotransferase 14 U/L (0-40); Albumin Level 4.6 g/dL (3.5-5.0); Alkaline Phosphatase 89 U/L (39-117); Anion Gap 14 (12-20); Aspartate Amino Transferase 19 U/L (5-37); Bilirubin Total 0.4 mg/dL (0.0-1.0); Blood Urea Nitrogen 13 mg/dL (9-16); Calcium 10.1 mg/dL (8.4-10.2); Carbon Dioxide 22 mmol/L (22-29); Chloride 104 mmol/L (96-108); Creatinine Clr Calc Pharmacy 93.2; Estimated Glomerular Filt Rate > 60; Glucose Random 131 mg/dL (60-115); Lipase 12 U/L (8-78); Magnesium 1.7 mg/dL (1.6-2.6); Potassium 3.2 mmol/L (3.3-5.1); Sodium 137 mmol/L (135-145)
[2023-02-25 09:55] LABS: Influenza A PCR POSITIVE (Negative); Influenza B PCR NEGATIVE (Negative); Resp Syncy Virus RNA Qual PCR NEGATIVE (Negative); SARS COV2 PCR INHOUSE NEGATIVE (Negative)
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
--- NOTE | 2023-02-25 10:12 | PC.NURSE ---
patient a&ox3, ambulated independently with steady gait into RP, pt medicated for nausea and potassium, pt to discharge per provider + flu,
== END 2023-02-25 10:12 | disposition home or self-care (01) ==
PROVIDERS: Physician Assistant Medical; Emergency Provider Emergency Medicine; PCP Internal Medicine
DX: R11.15 Cyclical vomiting syndrome unrelated to migraine (principal); J10.1 Influenza due to other identified influenza virus with other respiratory manifestations; R10.9 Unspecified abdominal pain; M79.10 Myalgia, unspecified site; D72.829 Elevated white blood cell count, unspecified; Z20.822 Contact with and (suspected) exposure to COVID-19; Z20.828 Contact with and (suspected) exposure to other viral communicable diseases
CPT/HCPCS: 0241U; 80053; 83690; 83735; 85025; 99282; 99283

== ENCOUNTER 2023-03-20 15:00 | Outpatient (REF) | payer MEDICAID, SELFPAY ==
[2023-03-20 18:05] LABS: Amphetamine Screen Urine Not Detected (Not Detect); Barbiturates, Urine Not Detected (Not Detect); Benzodiazepines Screen Urine Not Detected (Not Detect); Cannabinoid Screen Urine Not Detected (Not Detect); Cocaine Screen Urine Not Detected (Not Detect); Fentanyl, urine Not Detected (Not Detect); Opiate Screen Urine Not Detected (Not Detect); Phencyclidine Screen Urine Not Detected (Not Detect)
== END 2023-03-20 15:01 | disposition home or self-care (01) ==
LOC: HO.LAB 15:00
PROVIDERS: PCP Internal Medicine; Visit Provider Internal Medicine
DX: Z77.29 Contact with and (suspected) exposure to other hazardous substances (principal)
CPT/HCPCS: 80307

== ENCOUNTER 2023-05-15 14:17 | Outpatient (REF) | payer MEDICAID, SELFPAY ==
[2023-05-15 15:23] LABS: Appearance Urine Clear; Color Urine Yellow; Glucose Urine UA Negative (Negative); Leukocyte Esterase Urine Negative (Negative); Nitrite Urine Negative (Negative); PH 5.5 (5.0-9.0); UMIC TRIGGER UACC YES; Urine Blood Small (1+) (Negative); Urine Ketones Trace mg/dL (Negative); Urine Protein Negative (Neg-Trace)
[2023-05-15 15:33] LABS: Bacteria Urine None Seen (None Seen); Hyaline Casts Urine 0-2 /LPF (0-2); Squamous Epithelial Cell Urine 0-2 /HPF (0-2); WBC Urine 0-5 /HPF (0-5)
[2023-05-15 16:00] LABS: Amphetamine Screen Urine Not Detected (Not Detect); Barbiturates, Urine Not Detected (Not Detect); Benzodiazepines Screen Urine Not Detected (Not Detect); Cannabinoid Screen Urine POSITIVE (Not Detect); Cocaine Screen Urine Not Detected (Not Detect); Fentanyl, urine Not Detected (Not Detect); Opiate Screen Urine Not Detected (Not Detect); Phencyclidine Screen Urine Not Detected (Not Detect)
[2023-05-15 17:25] LABS: CT PCR NOT DETECTED (Not Detect.); NG PCR NOT DETECTED (Not Detect.)
== END 2023-05-15 14:18 | disposition home or self-care (01) ==
LOC: HO.LAB 14:17
PROVIDERS: PCP Internal Medicine; Visit Provider Internal Medicine
DX: R30.0 Dysuria (principal); J45.909 Unspecified asthma, uncomplicated
CPT/HCPCS: 0353U; 80307; 81001; 87086

== ENCOUNTER 2023-05-22 14:48 | Outpatient (REF) | payer MEDICAID, SELFPAY ==
[2023-05-22 17:53] LABS: Amphetamine Screen Urine Not Detected (Not Detect); Barbiturates, Urine Not Detected (Not Detect); Benzodiazepines Screen Urine Not Detected (Not Detect); Cannabinoid Screen Urine Not Detected (Not Detect); Cocaine Screen Urine Not Detected (Not Detect); Fentanyl, urine Not Detected (Not Detect); Opiate Screen Urine Not Detected (Not Detect); Phencyclidine Screen Urine Not Detected (Not Detect)
== END 2023-05-22 14:49 | disposition home or self-care (01) ==
LOC: HO.LAB 14:48
PROVIDERS: PCP Internal Medicine; Visit Provider Internal Medicine
DX: Z02.83 Encounter for blood-alcohol and blood-drug test (principal)
CPT/HCPCS: 80307

== ENCOUNTER 2023-06-19 16:58 | Outpatient (REF) | payer MEDICAID, SELFPAY ==
[2023-06-19 17:42] LABS: Influenza A PCR NEGATIVE (Negative); Influenza B PCR NEGATIVE (Negative); Resp Syncy Virus RNA Qual PCR NEGATIVE (Negative); SARS COV2 PCR INHOUSE NEGATIVE (Negative)
== END 2023-06-19 16:59 | disposition home or self-care (01) ==
LOC: HO.LNP 16:58
PROVIDERS: Visit Provider Internal Medicine
DX: R53.83 Other fatigue (principal); R05.9 Cough, unspecified
CPT/HCPCS: 0241U

== ENCOUNTER 2023-12-07 04:21 | Emergency (ER) | payer MEDICAID, SELFPAY ==
[2023-12-07] VITALS (8 sets, daily range): BP systolic 98–142; BP diastolic 52–86; PULSE 56–81; RESP 15–20; TEMP 36.6–37.2; O2SAT 97–100; BMI 19.2
[2023-12-07] MEDS: LORazepam 2 MG/ML VIAL IM (04:36)
[2023-12-07] MEDS: Ondansetron ODT 4 MG TAB.RAPDIS TRANSLINGU (04:36)
--- NOTE | 2023-12-07 04:49 | MHC.EDTECH ---
Patient changed over into hospital gown and belongings sent with security to [id number]
--- NOTE | 2023-12-07 06:33 | ED_ITS ---
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 wants to stop using it last use was earlier today came here with nausea vomiting with anxiety Related Data Home Medications ?Medication ?Instructions ?Recorded ?Confirmed albuterol sulfate 90 mcg/actuation 2 puff inhalation QID PRN 05/17/20 10/01/22 aerosol inhaler Shortness Of Breath Or Wheezing Previous Rx's ?Medication ?Instructions ?Recorded clonidine HCl 0.1 mg tablet 0.1 mg PO TID PRN Palpitations #30 10/07/22 tabs methadone 10 mg/mL oral 30 mg (3 mL) PO DAILY #0 mL 10/07/22 concentrate (Methadose) acetaminophen 500 mg tablet 500 mg PO Q6H PRN fever or pain 01/13/23 (Tylenol Extra Strength) #14 tabs bacitracin 500 unit/gram topical 1 appl topical BID #30 grams 01/13/23 ointment cyclobenzaprine 5 mg tablet 5 mg PO Q8H PRN pain (scale score 01/13/23 7-10) 5 days #14 tabs lidocaine 5 % topical patch 1 patch topical DAILY PRN pain #30 01/13/23 (Lidoderm) ea naproxen 500 mg tablet 500 mg PO BID PRN pain 10 days #20 01/13/23 tabs bacitracin 500 unit/gram topical 1 appl topical BID #30 grams 01/18/23 ointment ondansetron 4 mg disintegrating 4 mg PO Q6H PRN nausea and 02/25/23 tablet vomiting #14 tabs Allergies Allergy/AdvReac Type Severity Reaction Status Date / Time No Known Allergies Allergy Verified 12/07/23 04:29 Review of Systems 2 Review of Systems: Yes all other systems are reviewed and are negative PMFSH Past Medical History Medical History Depression Anxiety Asthma Surgical History H/O circumcision Social History Social History Household Members: Family Housing: Apartment Alcohol intake: unknown Patient Tobacco Use Status: Never used Tobacco Smoked in Last 30 Days: No Use of substances other than those prescribed or required for medical reasons: Yes Substance Use Type: Marijuana, Painkillers and Prescription Drugs Substance Use Frequency: Chronic Longstanding Last Used Substance: Just Prior to Admission Do you have a plan to hurt others: No Plan service: No Current occupational status: unemployed Current occupation: right hand dominant Sexual orientation: Straight/Heterosexual Physical Exam 2 Vital Signs: Vital Signs: Last Vital Signs Temp 98.1 F 12/07/23 06:25 Pulse 62 12/07/23 06:25 Resp 15 12/07/23 06:25 BP 139/72 12/07/23 06:25 Pulse Ox 98 12/07/23 06:25 O2 Del Method Room Air 12/07/23 06:25 BMI result Body Mass Index 19.2 Appearance: Alert. Oriented X3. Anxious extremely vomitus Eyes: PERRLA, No Nystagmus ENT: Pharynx normal. Oral Mucosa moist Neck: Normal inspection. Neck supple. CVS: Normal heart rate and rhythm. Pulses normal. Respiratory: No respiratory distress. Equal air entry bilateral, no wheezing/rales/rhonchi Abdomen: Soft and nontender. Bowel sounds are present, no mass palpable, no CVA tenderness Skin: Skin warm and dry. Normal skin color. Normal skin turgor. Extremities: No lower extremity edema. No calf tenderness Neuro: Oriented X 3. No motor deficit. No sensory deficit.No cerebellar signs , cranial nerves II-XII intact Medications Administered Discontinued Medications Generic Name Dose Route Start Last Admin Trade Name Luis PRN Reason Stop Dose Admin Lorazepam 2 mg 12/07/23 04:27 12/07/23 04:36 Lorazepam 2 Mg/Ml Vial IM 12/07/23 04:28 2 mg STAT STA Administration Ondansetron HCl 4 mg 12/07/23 04:27 12/07/23 04:36 Ondansetron Odt 4 Mg Tab.Rapdis TRANSLINGU 12/07/23 04:28 4 mg ONCE ONE Administration Medical Decision Making Medical Decision Making MDM Narrative: Patient with anxiety with substance abuse using Percocet requesting care team for the addiction Lab Data MDM Lab Attestation statement: I reviewed the patient's lab results. 12/07/23 06:44 12/07/23 06:44 Labs: Lab Results 12/07/23 Range/Units 06:44 WBC 10.2 (4.8-10.8) X10*3/uL RBC 4.58 L (4.60-5.80) X10*6/uL Hgb 13.5 L (14.0-18.0) g/dl Hct 40.2 L (42.0-52.0) % MCV 87.8 (80.0-98.0) fL MCH 29.5 (27.0-33.0) pg MCHC 33.6 (31.0-36.0) g/dl RDW 13.5 (11.0-16.0) % Plt Count 216 (160-400) X10*3/uL MPV 10.9 (9.4-12.4) fL Immature Gran % (Auto) 0.4 (0.0-0.4) % Neut % (Auto) 79.1 H (45-73) % Lymph % (Auto) 13.6 L (20-40) % [place] % (Auto) 5.9 (2-11) % Eos % (Auto) 0.6 (0-4) % Baso % (Auto) 0.4 (0-2) % Lymph # (Auto) 1.4 (1.2-4.9) X10*3/uL [place] # (Auto) 0.6 (0.1-1.2) X10*3/uL Eos # (Auto) 0.1 (0.0-0.4) X10*3/uL Baso # (Auto) 0.0 (0.0-0.2) X10*3/uL Abs Immat Gran (auto) 0.04 H (0.00-0.03) X10*3/uL Absolute Neuts (auto) 8.1 (2.0-8.3) x10*3/uL Absolute Nucleated RBC 0.000 (0.0-0.012) X10*3/uL Nucleated RBC % (auto) 0.0 (0.0-0.2) /100WBC Discharge Plan Discharge Clinical Impression: Opioid use disorder Patient Disposition: Still a Patient Prescriptions: No Action albuterol sulfate 90 mcg/actuation HFA aerosol inhaler 2 puff inhalation QID PRN (Reason: Shortness Of Breath Or Wheezing) clonidine HCl 0.1 mg Tablet 0.1 mg PO TID PRN (Reason: Palpitations) Qty: 30 0RF Protocol: Hold for SBP< HOLD for SBP < : 90 methadone [Methadose] 10 mg/mL Concentrate 30 mg PO DAILY Qty: 0 0RF Rx Instructions: Partial Fill upon patient request. acetaminophen [Tylenol Extra Strength] 500 mg tablet 500 mg PO Q6H PRN (Reason: fever or pain) Qty: 14 0RF lidocaine [Lidoderm] 5 % adhesive patch,medicated 1 patch topical DAILY MDD remove after 12 hours PRN (Reason: pain) Qty: 30 0RF Rx Instructions: leave on most painful area for up to 12 hrs naproxen 500 mg tablet 500 mg PO BID PRN (Reason: pain) 10 Days Qty: 20 0RF cyclobenzaprine 5 mg tablet 5 mg PO Q8H PRN (Reason: pain (scale score 7-10)) 5 Days Qty: 14 0RF bacitracin 500 unit/gram ointment 1 appl topical BID Qty: 30 0RF bacitracin 500 unit/gram ointment 1 appl topical BID Qty: 30 0RF ondansetron 4 mg tablet,disintegrating 4 mg PO Q6H PRN (Reason: nausea and vomiting) Qty: 14 0RF Print Language: Bengali
[2023-12-07 06:52] LABS: MANUAL DIFF FLAG NO
[2023-12-07 06:56] LABS: Basophils Percent Auto 0.4 % (0-2); Eosinophils Absolute Auto 0.1 X10*3/uL (0.0-0.4); Eosinophils Percent Auto 0.6 % (0-4); Hematocrit 40.2 % (42.0-52.0); Hemoglobin 13.5 g/dl (14.0-18.0); Imm Gran Abs Auto 0.04 X10*3/uL (0.00-0.03); Imm Gran Pct Auto 0.4 % (0.0-0.4); Lymphocytes Absolute Auto 1.4 X10*3/uL (1.2-4.9); Lymphocytes Percent Auto 13.6 % (20-40); Mean Corpuscular HGB Conc 33.6 g/dl (31.0-36.0); Mean Corpuscular Hemoglobin 29.5 pg (27.0-33.0); Mean Corpuscular Volume 87.8 fL (80.0-98.0); Mean Platelet Volume 10.9 fL (9.4-12.4); Monocytes Absolute Auto 0.6 X10*3/uL (0.1-1.2); Monocytes Percent Auto 5.9 % (2-11); Neutrophils Absolute Auto 8.1 x10*3/uL (2.0-8.3); Neutrophils Percent Auto 79.1 % (45-73); Platelet Count 216 X10*3/uL (160-400); Red Blood Count 4.58 X10*6/uL (4.60-5.80); Red Cell Distribution Width 13.5 % (11.0-16.0); White Blood Count 10.2 X10*3/uL (4.8-10.8)
[2023-12-07 07:12] LABS: Alanine Aminotransferase 23 U/L (0-40); Albumin Level 4.5 g/dL (3.5-5.0); Alkaline Phosphatase 73 U/L (39-117); Anion Gap 13 (12-20); Aspartate Amino Transferase 21 U/L (5-37); Bilirubin Total 0.4 mg/dL (0.0-1.0); Blood Urea Nitrogen 18 mg/dL (9-16); Calcium 9.9 mg/dL (8.4-10.2); Carbon Dioxide 23 mmol/L (22-29); Chloride 106 mmol/L (96-108); Creatinine Clr Calc Pharmacy 96.2; Estimated Glomerular Filt Rate > 60; Ethanol < 10 mg/dL; Glucose Random 115 mg/dL (60-115); Potassium 3.8 mmol/L (3.3-5.1); Sodium 138 mmol/L (135-145); Total Protein 7.5 g/dL (6.5-8.0)
[2023-12-07 07:32] LABS: Influenza A PCR NEGATIVE (Negative); Influenza B PCR NEGATIVE (Negative); Resp Syncy Virus RNA Qual PCR NEGATIVE (Negative); SARS COV2 PCR INHOUSE NEGATIVE (Negative)
[2023-12-07] MEDS: ondansetron HCL 4 MG/2 ML VIAL IVPUSH ×2 (08:18→09:58)
[2023-12-07] MEDS: Famotidine/PF 20 MG/2 ML VIAL IVPUSH ×2 (08:18→15:20)
--- NOTE | 2023-12-07 09:59 | PC.NURSE ---
Patient vomiting stomach bile, md aware verbal order for zofran obtained.Patient stating feels better but still nausous
--- NOTE | 2023-12-07 11:14 | PC.NURSE ---
With patient permission girlfrienbran Levine updated on current condition , Julianna [phone] stating that patient needs rehab d/t percocet use .
--- NOTE | 2023-12-07 13:35 | PC.NURSE ---
Patient/ girlfriend asking for house keys in belongings so that girlfriend can go feed the dog. No house keys found when looking in patients belongings, patient and girlfriend aware
--- NOTE | 2023-12-07 13:51 | MHC.EDTECH ---
unable to obtain vitals at the moment, RN aware
[2023-12-07] MEDS: Ketorolac Tromethamine 15 MG/ML VIAL IVPUSH (15:20)
[2023-12-07] MEDS: Metoclopramide HCl 10 MG/2 ML VIAL IVPUSH (15:21)
[2023-12-07 15:37] LABS: Appearance Urine Turbid; Color Urine Yellow; Glucose Urine UA Negative (Negative); Leukocyte Esterase Urine Negative (Negative); Nitrite Urine Negative (Negative); Specific Gravity - Urine >= 1.030 (1.005-1.025); UMIC TRIGGER UACC YES; Urine Blood Trace (Negative); Urine Ketones 80 mg/dL (Negative); Urine Protein 30 (1+) mg/dL (Neg-Trace)
[2023-12-07 15:40] LABS: Bacteria Urine None Seen (None Seen); Hyaline Casts Urine 0-2 /LPF (0-2); RBC Urine >20 /HPF (0-2); Squamous Epithelial Cell Urine 0-2 /HPF (0-2); WBC Urine 0-5 /HPF (0-5)
[2023-12-07 15:50] LABS: Amphetamine Screen Urine Not Detected (Not Detect); Barbiturates, Urine Not Detected (Not Detect); Benzodiazepines Screen Urine Not Detected (Not Detect); Buprenorphine Scr Not Detected (Not Detect); Cannabinoid Screen Urine POSITIVE (Not Detect); Cocaine Screen Urine Not Detected (Not Detect); Fentanyl, urine Not Detected (Not Detect); Methadone Screen, Urine Positive (Not Detect); Opiate Screen Urine POSITIVE (Not Detect); Oxycodone Screen Urine Positive (Not Detect); Phencyclidine Screen Urine Not Detected (Not Detect)
--- NOTE | 2023-12-07 22:59 | PC.NURSE ---
Pt asking about plan. T/w noted plan for recovery team, but since pt was vomiting most of previous shift the plan was to continue to monitor him until recovery sees him. PT now reporting SI. States he texted his girlfriend prior to arrival that he was suicidal, and continues to have thought of killing himself. No plans. Notified charge and provider. Plan for pt to go into pod
--- NOTE | 2023-12-07 23:06 | PC.NURSE ---
PT transferred to pod with staff and security. report given to pod RN by Charge NurseMelvi.
[2023-12-08] MEDS: LORazepam 1 MG TABLET 2 MG PO ×4 (01:54→22:43)
--- NOTE | 2023-12-08 07:20 | PC.NURSE ---
Addendum entered by Rupa Real 12/08/23 07:31: pt medicated with 2mg Ativan PO Original Note: Assumed care of patient at 0645, patient is reporting nausea and anxiety secondary to opiate withdrawal. He reports he regularly uses percocets. COWS score of 6. MD Ann aware at this time. Pending inpatient bedsearch at this time
[2023-12-08 08:56] VITALS: BP 118/75; PULSE 81; RESP 18; TEMP 36.6; O2SAT 100
[2023-12-08] MEDS: Ondansetron ODT 4 MG TAB.RAPDIS TRANSLINGU ×2 (09:27→20:42)
--- NOTE | 2023-12-08 09:28 | PHA.MEDREC ---
Pharmacy Consult ? Medication Reconciliation Pharmacy has reviewed the medication reconciliation done by nursing
--- NOTE | 2023-12-08 09:37 | PC.NURSE ---
Pt continues to moan and yell, stating Abdulaziz brewer helping me, I feel sick . Pt reminded multiple times by this RN that we are waiting for recovery to meet with him to potentially start him on methadone. Pt provided with Zofran 4mg ODT for nausea/vomiting per APR. Pt also received Ativan this am for agitation. MD aware of patient's current condition
--- NOTE | 2023-12-08 10:02 | MHC.RECOVRN ---
Met with pt in [facility] after request from CARE and RN to address opioid withdrawal. Pt needs to meet with CARE Team, however, unable to engage in conversation due to withdrawal symptoms. Pt laying in bed, awake, alert, engages in conversation. Pt reports currently using 5-10 10 mg Percocet daily, IN. Pt also reports using methadone, sips. Pt reports he had been on methadone through [facility] in [place] (had told pod RN other OTPs including Anastasiya Lo and [facility] in [place]) a couple months ago. Pt reports he still has bottles from that period of time which he takes sips of to address withdrawal symptoms. Pt reports he had been on 25 mg daily and was increased to 30 mg daily. Pt reports restlessness, hot/cold, nausea. Pt requesting methadone to address withdrawal symptoms while here. Pt denies other questions or concerns. Discussed with RN as well as ED provider, plan to administer 20 mg methadone.
[2023-12-08] MEDS: methADONE HCl 20 MG/2 ML ORAL.CONC PO (10:11)
--- NOTE | 2023-12-08 14:15 | MHC.CARE ---
Pt was accepted to [facility] for tomorrow 12/09/23. The ETA is 11am. The accepting provider is Dr. Cates. The address is [address] [place] [address]. No nurse to nurse is required per accepting facility. Pod RN and CARE Team have been notified of placement.
[2023-12-08 15:13] VITALS: PULSE 89; RESP 14; TEMP 37.2; O2SAT 100
[2023-12-08] MEDS: methADONE HCl 20 MG/2 ML ORAL.CONC 10 MG PO (15:53)
--- NOTE | 2023-12-08 17:16 | PC.NURSE ---
[facility]
--- NOTE | 2023-12-08 23:36 | PC.NURSE ---
Took over care from Shyla, pt sleeping.
[2023-12-09] MEDS: LORazepam 1 MG TABLET 2 MG PO (05:56)
[2023-12-09 05:57] VITALS: BP 107/77; PULSE 81; RESP 16; TEMP 37; O2SAT 96
--- NOTE | 2023-12-09 05:58 | PC.NURSE ---
Medicated per Mar.
[2023-12-09] MEDS: methADONE HCl 20 MG/2 ML ORAL.CONC PO (08:40)
[2023-12-09 09:28] VITALS: BP 107/77; PULSE 81; RESP 16; TEMP 37; O2SAT 96
== END 2023-12-09 09:29 ==
PROVIDERS: Internal Medicine; Emergency Provider Emergency Medicine Emergency Medical Services; PCP Internal Medicine
DX: F11.10 Opioid abuse, uncomplicated (principal); R11.2 Nausea with vomiting, unspecified; F41.9 Anxiety disorder, unspecified; Z03.818 Encounter for observation for suspected exposure to other biological agents ruled out; Z71.51 Drug abuse counseling and surveillance of drug abuser; Z51.81 Encounter for therapeutic drug level monitoring; Z79.899 Other long term (current) drug therapy
CPT/HCPCS: 0241U; 80053; 80307; 81001; 85025; 96372; 96374; 96375; 96376; 99285; J1885; J2060; J2405; J2765; S9485

== ENCOUNTER 2024-03-25 10:50 | Outpatient (REF) | payer MEDICAID, SELFPAY ==
[2024-03-25 11:04] LABS: MANUAL DIFF FLAG NO
[2024-03-25 11:19] LABS: Basophils Percent Auto 0.5 % (0-2); Eosinophils Absolute Auto 0.4 X10*3/uL (0.0-0.4); Eosinophils Percent Auto 5.5 % (0-4); Hematocrit 44.2 % (42.0-52.0); Hemoglobin 14.8 g/dl (14.0-18.0); Imm Gran Abs Auto 0.03 X10*3/uL (0.00-0.03); Imm Gran Pct Auto 0.4 % (0.0-0.4); Lymphocytes Absolute Auto 1.9 X10*3/uL (1.2-4.9); Lymphocytes Percent Auto 25.3 % (20-40); Mean Corpuscular HGB Conc 33.5 g/dl (31.0-36.0); Mean Corpuscular Hemoglobin 29.5 pg (27.0-33.0); Mean Platelet Volume 10.4 fL (9.4-12.4); Monocytes Absolute Auto 0.8 X10*3/uL (0.1-1.2); Monocytes Percent Auto 10.7 % (2-11); Neutrophils Absolute Auto 4.3 x10*3/uL (2.0-8.3); Neutrophils Percent Auto 57.6 % (45-73); Platelet Count 270 X10*3/uL (160-400); Red Blood Count 5.02 X10*6/uL (4.60-5.80); Red Cell Distribution Width 13.4 % (11.0-16.0); White Blood Count 7.5 X10*3/uL (4.8-10.8)
--- OUTSIDE RECORDS SUMMARY | 2024-03-25 11:37 | XMS_ITS | Encounter Summary ---
Author Organization [facility] Address [address] [place] [address] Phone Care Team Providers Care Laborer Shipyard Name Role Phone Unavailable Primary Care Provider Unavailabl e Encounter Details Date Type Department Care Team (Late st Contact Info) Description 10/09/2016 Conversion Encounter [facility] - [address] [address] Social History Tobacco Use Types Packs/Day Years Used Date Smoking Tobacco: Never Comments:Never smoker Sex and Gender Information Value Date Recorded Sex Assigned at Not on file Legal Sex Male 4:56 PM EDT Gender Identity Not on file Sexual Orientation Not on file documented as of this encounter Plan of Treatment Not on file documented as of this encounter Visit Diagnoses Not on filedocumented in this encounter
--- OUTSIDE RECORDS SUMMARY | 2024-03-25 11:37 | XMS_ITS | Encounter Summary ---
Author Organization [facility] Address [address] [place] [address] Phone Care Team Providers Care Addiction Treatment Counselor Name Role Phone Unavailable Primary Care Provider Unavailabl e Encounter Details Date Type Department Care Team (Late st Contact Info) Description 11/01/2012 Documentation [facility] Family Medicine [address] [place] [address] Family Medicine, Physician [address] [place] [phone] Social History Tobacco Use Types Packs/Day Years Used Date Smoking Tobacco: Never Assessed Sex and Gender Information Value Date Recorded Sex Assigned at Not on file Legal Sex Male 4:56 PM EDT Gender Identity Not on file Sexual Orientation Not on file documented as of this encounter Plan of Treatment Not on file documented as of this encounter Visit Diagnoses Not on filedocumented in this encounter
--- OUTSIDE RECORDS SUMMARY | 2024-03-25 11:37 | XMS_ITS | Clinical Summary ---
Author Organization [facility] Address [address] [place] [address] Phone Care Team Providers Care Elastic Tape Inserter Name Role Phone Unavailable Primary Care Provider Unavailabl e Immunizations Name Administration Dates Next Due DTaP 5 09/01/2001, 9,1997,09/11,1997 H1N1 01/04/2009 HPV, Quadrivalent 05/17/2014,01/05/2012 Hep A, ped/adol 05/17/2014 Hep B, ped/adol 1997,1997,1997 Hib (PRP-T) 12/06/1998, 8,1997,07/12 IPV 09/01/2001,1997 Influenza Split 01/05/2012,12/16/2010,12/27/2009 Influenza, injectable, quadrivalent 01/13/2014 Influenza, injectable, quadr ivalent, preservative free 12/09/2012 Influenza, injectable, trivalent 03/18/2004,01/24 MMR 09/01/2001,1998 Meningococcal Conj (Menactra) MCV4P 01/04/2009 OPV 1998,1997 Tdap 01/04/2009 Varicella 12/16/2010,1998 Family History Relation Name Status Comments Brother Alive Brother: Alive and well Maternal Grandmother Alive Materna l aunt: Depression Mother Alive Mother: Alive a nd well Other Family history of *Heart Disease, No family history of Migraines, Family history of ADD/ADHD, Family history of *Thrombophilia, No family history of Seizure disorder, No family history of Obesity, Family history of Asthma, No family history of *Sudden /[place] under 55, Family history of Sudden /[place] under age 55, Family history of Cancer - bone/breast, Family history of *CVA/Stroke, No family history of Hyperlipidemia, Family history of Diabetes mellitus Social History Tobacco Use Types Packs/Day Years Used Date Smoking Tobacco: Never Comments:Never smoker Sex and Gender Information Value Date Recorded Sex Assigned at Not on file Legal Sex Male 4:56 PM EDT Gender Identity Not on file Sexual Orientation Not on file Last Filed Vital Signs Vital Sign Reading Time Taken Comments Blood Pressure 98/65 05/17/2014 12:00 AM EDT Pulse 65 05/17/2014 12:00 AM EDT Temperature 36.6 ??C (97.8 ??F) 04/04/2014 12:[address] Respiratory Rate - - Oxygen Saturation - - Inhaled Oxygen Concentration - - Weight 54 kg (119 lb) 05/17/2014 12:00 AM EDT Height 172.2 cm (5' 7.8 ) 05/17/2014 12:00 AM ED T Body Mass Index 18.2 05/17/2014 12:00 AM EDT Plan of Treatment Health Maintenance Due Date Last Done Comments Hepatitis A Vaccines (2 of 2 - 2-dose series) 11/17/2014 05/17/2014 DTaP,Tdap,and Td Vaccines (7 - Td or Tdap) 01/04/2019 01/04/2009, 09/01/2001, 12/06/1998, Additional history exists Influenza Vaccines (#1) 2023 01/14/20 14, 12/09/2012, 01/05/2012, Additional history exists COVID-19 Vaccine () 10/25/2023 Hepatitis B Vaccines Completed 1997, 1997, 1997 HIB Vaccines Completed 12/06/1998, 10/25, 1997, Additional history exists IPV Vaccines Completed 09/01/2001, 04/23, 1997, Additional history exists MMR Vaccines Completed 09/01/2001, 1998 Meningococcal Vaccine Aged Out 01/04/2009 No clarissa hafsa eligible based on patient's age to complete this topic Varicella Vaccines Completed 12/16/2010, 1998 HPV Vaccines Completed 05/17/2014, 01/05/2012 Men B Vaccine Aged Out No longer elig ible based on patient's age to complete this topic Pneumococcal Vaccine Aged Out No long er eligible based on patient's age to complete this topic
--- OUTSIDE RECORDS SUMMARY | 2024-03-25 11:37 | XMS_ITS | Encounter Summary ---
Author Organization [facility] Address [address] [place] [address] Phone Care Team Providers Care Card Dealer Name Role Phone Unavailable Primary Care Provider Unavailabl e Encounter Details Date Type Department Care Team (Late st Contact Info) Description 05/16/2011 Documentation [facility] Family Medicine [address] [place] [address] Family Medicine, Physician [address] [phone] Social History Tobacco Use Types Packs/Day Years [...]
--- OUTSIDE RECORDS SUMMARY | 2024-03-25 11:37 | XMS_ITS | Encounter Summary ---
Author Organization [facility] Address [address] [place] [address] Phone Care Team Providers Care Religion Teacher Name Role Phone Unavailable Primary Care Provider Unavailabl e Encounter Details Date Type Department Care Team (Late st Contact Info) Description 12/09/2012 Documentation [facility] Family Medicine [address] [place] [address] Family Medicine, Physician [address], [place] [phone] Social History Tobacco Use Types Packs/Day Years [...]
--- OUTSIDE RECORDS SUMMARY | 2024-03-25 11:38 | XMS_ITS | Encounter Summary ---
Author Organization [facility] Address [address] [place] [address] Phone Care Team Providers Care Chemical Librarian Name Role Phone Unavailable Primary Care Provider Unavailabl e Encounter Details Date Type Department Care Team (Late st Contact Info) Description 01/17/2014 Documentation [facility] Family Medicine [address] [place] [address] Family Medicine, Physician [address] [phone] Social History Tobacco Use Types Packs/Day Years [...]
--- OUTSIDE RECORDS SUMMARY | 2024-03-25 11:38 | XMS_ITS | Encounter Summary ---
Author Organization [facility] Address [address] [place] [address] Phone Care Team Providers Care Steam Conditioner Filling Name Role Phone Unavailable Primary Care Provider Unavailabl e Encounter Details Date Type Department Care Team (Late st Contact Info) Description 04/20/2014 Documentation [facility] Family Medicine [address] [place] [address] Family Medicine, Physician [address] [phone] Social History Tobacco Use Types Packs/Day Years [...]
--- OUTSIDE RECORDS SUMMARY | 2024-03-25 11:38 | XMS_ITS | Encounter Summary ---
Author Organization [facility] Address [address] [place] [address] Phone Care Team Providers Care Inspector Filter Tip Name Role Phone Unavailable Primary Care Provider Unavailabl e Encounter Details Date Type Department Care Team (Late st Contact Info) Description 04/19/2014 Documentation [facility] Family Medicine [address] [place] [address] Family Medicine, Physician [address] [phone] Social History Tobacco Use Types Packs/Day Years [...]
--- OUTSIDE RECORDS SUMMARY | 2024-03-25 11:38 | XMS_ITS | Encounter Summary ---
Author Organization [facility] Address [address] [place] [address] Phone Care Team Providers Care Customs Investigator Name Role Phone Unavailable Primary Care Provider Unavailabl e Encounter Details Date Type Department Care Team (Late st Contact Info) Description 05/16/2011 Documentation [facility] Family Medicine [address] [place] [address] Family Medicine, Physician [address], [place] [phone] Social History Tobacco Use Types Packs/Day Years [...]
--- OUTSIDE RECORDS SUMMARY | 2024-03-25 11:38 | XMS_ITS | Encounter Summary ---
Author Organization [facility] Address [address] [place] [address] Phone Care Team Providers Care Cattle Feeder Name Role Phone Unavailable Primary Care Provider Unavailabl e Encounter Details Date Type Department Care Team (Late st Contact Info) Description 01/17/2014 Documentation [facility] Family Medicine [address] [place] [address] Family Medicine, Physician [address], [place] [phone] Social History Tobacco Use Types Packs/Day Years [...]
[2024-03-25 12:08] LABS: Alanine Aminotransferase 24 U/L (0-40); Albumin Level 4.7 g/dL (3.5-5.0); Alkaline Phosphatase 76 U/L (39-117); Anion Gap 13 (12-20); Aspartate Amino Transferase 24 U/L (5-37); Bilirubin Total 0.4 mg/dL (0.0-1.0); Blood Urea Nitrogen 16 mg/dL (9-16); Calcium 10.1 mg/dL (8.4-10.2); Carbon Dioxide 28 mmol/L (22-29); Chloride 105 mmol/L (96-108); Cholesterol 161 mg/dL (<200); Estimated Glomerular Filt Rate > 60; Glucose Fasting 78 mg/dL (60-99); HDL Cholesterol 61 mg/dL (>40); LDL Cholesterol Calculated 85 mg/dL (<100); Potassium 4.2 mmol/L (3.3-5.1); Sodium 142 mmol/L (135-145); Total Protein 8.1 g/dL (6.5-8.0); Triglycerides 77 mg/dL (<150)
== END 2024-03-25 10:51 | disposition home or self-care (01) ==
LOC: HO.LAB 10:50
PROVIDERS: PCP Internal Medicine; Visit Provider Internal Medicine
DX: J45.909 Unspecified asthma, uncomplicated (principal); Z72.0 Tobacco use
CPT/HCPCS: 36415; 80053; 80061; 85025

== ENCOUNTER 2024-08-04 11:54 | Emergency (ER) | payer OTHER, SELFPAY ==
[2024-08-04 12:06] VITALS: BP 138/79; PULSE 118; RESP 18; TEMP 37.1; O2SAT 98; BMI 22.1
--- NOTE | 2024-08-04 12:08 | ED.GENADULT ---
HPI - General Adult General Chief complaint: Animal Bite Stated complaint: Dog bite Time Seen by Provider: 08/04/24 13:22 Source: patient Mode of arrival: ambulatory Limitations: no limitations History of Present Illness ED Provider: Dr. Dante Ann HPI narrative: 29-year-old male with a history of depression who presents emergency department for evaluation of dog bite to his right calf/lower extremity. Patient states that he was walking his dog to his father's house and there were 2 dogs that attacked him. Patient was bit in the right calf/lower extremity. He believes that the dog's did not have there rabies vaccination. The father did call animal control on the dogs. Patient last tetanus vaccination was given in 2022 therefore he is up-to-date. The patient states that he starting a job tomorrow with [employer] and he is having significant pain in his calf and does not think that he can go to work secondary to his pain. Related Data Home Medications ?Medication ?Instructions ?Recorded ?Confirmed albuterol sulfate 90 mcg/actuation 2 puff inhalation QID PRN 05/17/20 12/07/23 aerosol inhaler Shortness Of Breath Or Wheezing Previous Rx's ?Medication ?Instructions ?Recorded acetaminophen 500 mg tablet 500 mg PO Q6H PRN fever or pain 01/13/23 (Tylenol Extra Strength) #14 tabs amoxicillin 875 mg-potassium 1 tab PO Q12H 5 days #10 tabs 08/04/24 clavulanate 125 mg tablet Allergies Allergy/AdvReac Type Severity Reaction Status Date / Time No Known Allergies Allergy Verified 08/04/24 12:07 Review of Systems Review of Systems: Yes all other systems are reviewed and are negative [facility] Past Medical History Medical History Depression Anxiety Asthma Surgical History H/O circumcision Social History Social History Household Members: Family Housing: Apartment Alcohol intake: unknown Patient Tobacco Use Status: Never used Tobacco Smoked in Last 30 Days: No Use of substances other than those prescribed or required for medical reasons: No Substance Use Type: Marijuana, Painkillers and Prescription Drugs Advance Directives: No Advance Directives Information Provided: Yes service: No Current occupational status: unemployed Current occupation: right hand dominant Sexual orientation: Straight/Heterosexual Physical Exam ED Vital Signs: Vital Signs - 24 hr 08/04/24 12:06 Temperature 98.8 F Pulse Rate 118 H Respiratory Rate 18 Blood Pressure 138/79 Pulse Oximetry 98 Oxygen Delivery Method Room Air BMI result Body Mass Index 19.2 Vital signs revealed an elevated heart rate of 118 and elevated blood pressure of 138/79-most likely secondary to the dog bite/pain Exam: Right calf: You by anton consistent with dog bites, see images below Course Course Course Narrative: RME, this is a rapid medical exam performed by Eliel Shukla please refer to primary provider for complete H&P- 29 year old male presents for evaluation of a dog bite to the right leg. He was attacked by neighborhood dogs just prior to arrival. He has a 2cm gaping laceration to the right calf. Plan for wound management when treatment area is avialable. Medications Administered Discontinued Medications Generic Name Dose Route Start Last Admin Trade Name Earnestq PRN Reason Stop Dose Admin Amoxicillin/Clavulanate Potassium 875 mg 08/04/24 14:24 08/04/24 14:34 Amoxicillin/Potassium Clav 875 Mg Tablet PO 08/04/24 14:25 875 mg ONCE ONE Administration Bacitracin 1 appl 08/04/24 14:26 08/04/24 14:34 Bacitracin Oint 0.9 Gm Packet TOPICAL 08/04/24 14:27 1 appl ONCE ONE Administration Protocol Ibuprofen 400 mg 08/04/24 14:24 08/04/24 14:34 Ibuprofen 400 Mg Tablet PO 08/04/24 14:25 400 mg ONCE STA Administration Rabies Immune Globulin 1,178 unit 08/04/24 13:44 08/04/24 13:54 Rabies Immune Globulin/Pf 900 Unit/3 Ml Vial 20 unit/kg (1178 unit) 08/04/24 13:45 1,178 unit IM Administration ONCE ONE Rabies Vaccine 1 ml 08/04/24 13:44 08/04/24 13:53 Rabies Vaccine (Pcec)/Pf 1 Ml Vial IM 08/04/24 13:45 1 ml .ONCE ONE Administration Procedures Procedure Narrative Procedure Narrative: Dog bite wound irrigation and rabies immunoglobulin injections: I did discuss the irrigation procedure and immunoglobulin injection procedure with the patient and he did give me informed verbal consent to proceed. The to bite wounds were irrigated with normal saline using a 50 cc syringe and 18 gauge needle. The larger bite wound was irrigated with 200 cc of normal saline. The smaller bite wound was irrigated with 100 cc of normal saline. After irrigation using a 25 gauge needle I injected half of the immunoglobulin subcutaneously around each wound. Patient experienced some pain with each injection but did tolerate the procedure well. The wounds were then covered with bacitracin and dressed with dry sterile gauze dressings. Medical Decision Making Medical Decision Making [facility] Narrative: 29-year-old male with a history of depression who presents emergency department for evaluation of dog bite to his right calf/lower extremity. Patient states that he was walking his dog to his father's house and there were 2 dogs that attacked him. Patient was bit in the right calf/lower extremity. He believes that the dog's did not have there rabies vaccination. The father did call animal control on the dogs. Patient last tetanus vaccination was given in 2022 therefore he is up-to-date. Vital signs revealed elevated heart rate and elevated blood pressure most likely secondary to the pain from his dog bite. Exam is consistent with a dog bite to his right calf. Differential diagnosis: ?Includes but is not limited to dog bite, contaminated bite wound, rabies exposure Course: 14:38 Given the high-risk of this dog bite in the unknown vaccination status of the dog bit attack the patient, patient and will be given rabies vaccination and immunoglobulin. The wounds were extensively irrigated by me. The patient did agree with this plan. Half of the immunoglobulin was injected around the bite wounds by me. Other half was given as an IM injected by the nurse. Patient was also given rabies vaccination. Wounds were covered with bacitracin and a sterile gauze dressing. He was started on Augmentin 875/125 q.12 hours x5 days prophylactically and was given his 1st dose here in the emergency department he was also given ibuprofen 400 mg orally. The patient was given a note not to return to work for 1 week. The patient was strongly advised to report to this incident and will control and we will also report the incident to animal control. Admission/Observation Consideration of admission/observation: Escalation of care including admission/observation considered (No) Prescription Management I considered prescription management with: Antibiotic (Oral antibiotic: Augmentin; topical antibiotic bacitracin) Discharge Plan Discharge Clinical Impression: Dog bite, Need for rabies vaccination, Encounter for prophylactic administration of rabies immune globulin Patient Disposition: Home, Self-Care Instructions: Animal Bite (ED), Rabies (ED) Additional Instructions: You were given rabies vaccination and the rabies immunoglobulin injections. You will need to get 3 more rabies vaccinations as scheduled at the outpatient infusion Clinic here at [facility]. This involved 1 intramuscular rabies shot each visit and does not involve the immunoglobulin around the wound like you got today.. Apply bacitracin twice a day to the dog bites for 2 weeks. Keep the wounds covered with gauze. The wounds will heal slowly over time and it may take 2-4 weeks before it is completely healed. Watch for signs of infection which would include increased redness, increased swelling, red streaks going away from the wound, increased pain, pus draining from the wound. If you think the wound is infected follow up with your doctor, in urgent care clinic or return to the emergency department for re-evaluation. I am putting you on an antibiotic to try to prevent an infection. Take Augmentin 875/125, 1 pill every 12 hours for 5 days. Take ibuprofen 200 mg pills, 2 pills every 6 hours as needed for pain or fever. Take Tylenol (acetaminophen) 500 mg pills, 2 pills every 6 hours as needed for pain or fever. Please return to the emergency department if your symptoms get worse or if you develop any symptoms that are concerning to you. Given the pain in in your calf and the fact that your new job requires you to walk a significant amount, I do not think that you can return to work for 1 week. After 1 week I think you can return to work without any restrictions. Prescriptions: New amoxicillin-pot clavulanate 875-125 mg tablet 1 tab PO Q12H 5 Days Qty: 10 0RF No Action albuterol sulfate 90 mcg/actuation HFA aerosol inhaler 2 puff inhalation QID PRN (Reason: Shortness Of Breath Or Wheezing) acetaminophen [Tylenol Extra Strength] 500 mg tablet 500 mg PO Q6H PRN (Reason: fever or pain) Qty: 14 0RF Stand Alone Forms: Work/School Release Print Language: Swazi
--- NOTE | 2024-08-04 12:27 | PC.NURSE ---
Bite happened in [place], animal control has not been called yet
[2024-08-04 13:38] VITALS: BMI 19.2
[2024-08-04] MEDS: Rabies Vaccine (PCEC)/PF 1 ML VIAL IM (13:53)
[2024-08-04] MEDS: Rabies Immune Globulin/PF 900 UNIT/3 ML VIAL 1178 UNIT IM (13:54)
[2024-08-04 14:00] VITALS: BP 116/81; PULSE 60; RESP 16; TEMP 37; O2SAT 99
[2024-08-04 14:15] VITALS: BP 116/81; PULSE 60; RESP 16; TEMP 37; O2SAT 99
[2024-08-04] MEDS: Bacitracin Oint 0.9 GM PACKET 1 APPL TOPICAL (14:34)
[2024-08-04] MEDS: Amoxicillin/Potassium Clav 875 MG TABLET PO (14:34)
[2024-08-04] MEDS: Ibuprofen 400 MG TABLET PO (14:34)
[2024-08-04 15:12] VITALS: BP 116/81; PULSE 60; RESP 16; TEMP 37; O2SAT 99
--- OUTSIDE RECORDS SUMMARY | 2024-08-04 15:37 | XMS_ITS | Encounter Summary ---
Author Organization [facility] Address [address] [place] [address] Phone Care Team Providers Care District Manager In Training Name Role Phone Unavailable Primary Care Provider Unavailabl e Encounter Details Date Type Department Care Team (Late st Contact Info) Description 12/09/2012 Documentation [facility] Family Medicine [address] [place] [address] Family Medicine, Physician [address], [place] [phone] Social History Tobacco Use Types Packs/Day Years [...]
== END 2024-08-04 14:15 | disposition home or self-care (01) ==
PROVIDERS: Emergency Provider Emergency Medicine Emergency Medical Services; PCP Internal Medicine
DX: S81.851A Open bite, right lower leg, initial encounter (principal); W54.0XXA Bitten by dog, initial encounter; Y93.K1 Activity, walking an animal; Y92.480 Sidewalk as the place of occurrence of the external cause; Y99.9 Unspecified external cause status
CPT/HCPCS: 90375; 90471; 90675; 96372; 99284

== ENCOUNTER 2024-10-01 05:06 | Emergency (ER) | payer OTHER, SELFPAY ==
[2024-10-01 05:11] VITALS: BP 123/79; PULSE 89; RESP 20; TEMP 36.4; O2SAT 97; BMI 26.6
[2024-10-01 05:44] LABS: Hematocrit 40.8 % (42.0-52.0); Hemoglobin 13.9 g/dl (14.0-18.0); Mean Corpuscular HGB Conc 34.1 g/dl (31.0-36.0); Mean Corpuscular Hemoglobin 29.3 pg (27.0-33.0); Mean Corpuscular Volume 86.1 fL (80.0-98.0); NRBC Abs Auto 0.000 X10*3/uL (0.0-0.012); NRBC Pct Auto 0.0 /100WBC (0.0-0.2); Platelet Count 277 X10*3/uL (160-400); Red Blood Count 4.74 X10*6/uL (4.60-5.80); White Blood Count 6.2 X10*3/uL (4.8-10.8)
[2024-10-01 06:08] LABS: Alanine Aminotransferase 22 U/L (0-40); Albumin Level 4.9 g/dL (3.5-5.0); Alkaline Phosphatase 93 U/L (39-117); Anion Gap 17 (12-20); Aspartate Amino Transferase 29 U/L (5-37); Blood Urea Nitrogen 15 mg/dL (9-16); Calcium 9.5 mg/dL (8.4-10.2); Carbon Dioxide 23 mmol/L (22-29); Chloride 108 mmol/L (96-108); Creatinine Clr Calc Pharmacy 96.2; Estimated Glomerular Filt Rate > 60; Lipase 19 U/L (8-78); Magnesium 2.1 mg/dL (1.6-2.6); Potassium 4.5 mmol/L (3.3-5.1); Sodium 143 mmol/L (135-145); Total Protein 7.8 g/dL (6.5-8.0)
--- NOTE | 2024-10-01 08:28 | ED.NAVMDI ---
HPI - Nausea/Vomiting/Diarrhea General Chief complaint: Nausea/Vomiting/Diarrhea Stated complaint: stomach/abd pain, n/v Time Seen by Provider: 10/01/24 08:20 Source: patient Mode of arrival: ambulatory Limitations: no limitations History of Present Illness ED Provider: Dr. Dante Ann HPI Narrative: 29-year-old male with a history of anxiety, asthma, opiate use disorder on Suboxone who presents emergency department for evaluation of epigastric pain, nausea and vomiting. Patient states that he woke up at 03:00 hours with epigastric pain. He describes the pain is a constant sharp pain which is greater than 10/10. Patient had severe nausea and has vomited multiple times. In the emergency department in his had multiple episodes of dry heaves. The patient has been seen in the past for intractable vomiting/cyclic vomiting syndrome. Patient denies THC use. He denied fever but states he has been experiencing chills. He denied chest pain, shortness of breath, cough, diarrhea, frequency, urgency or dysuria Related Data Home Medications ?Medication ?Instructions ?Recorded ?Confirmed albuterol sulfate 90 mcg/actuation 2 puff inhalation QID PRN 05/17/20 12/07/23 aerosol inhaler Shortness Of Breath Or Wheezing Previous Rx's ?Medication ?Instructions ?Recorded acetaminophen 500 mg tablet 500 mg PO Q6H PRN fever or pain 01/13/23 (Tylenol Extra Strength) #14 tabs amoxicillin 875 mg-potassium 1 tab PO Q12H 5 days #10 tabs 08/04/24 clavulanate 125 mg tablet ondansetron 4 mg disintegrating 4 mg PO Q6-8H PRN nausea and 10/01/24 tablet vomiting #20 tabs Allergies Allergy/AdvReac Type Severity Reaction Status Date / Time No Known Allergies Allergy Verified 10/01/24 05:29 Review of Systems Review of Systems: Yes all other systems are reviewed and are negative PMFSH Past Medical History PMFSH Narrative: Patient does smoke cigarettes. Denies alcohol use. He denies marijuana or illicit substance use. Medical History Depression Anxiety Asthma Surgical History H/O circumcision Social History Social History Household Members: Family Housing: Apartment Alcohol intake: unknown Patient Tobacco Use Status: Never used Tobacco Smoked in Last 30 Days: Yes Use of substances other than those prescribed or required for medical reasons: No Substance Use Type: Marijuana, Painkillers and Prescription Drugs Advance Directives: No Advance Directives Information Provided: Yes service: No Current occupational status: unemployed Current occupation: right hand dominant Sexual orientation: Straight/Heterosexual Physical Exam Vital Signs: Vital Signs: Last Vital Signs Temp 99.4 F 10/01/24 09:49 Pulse 86 10/01/24 09:49 Resp 16 10/01/24 09:49 BP 127/71 10/01/24 09:49 Pulse Ox 97 10/01/24 05:11 O2 Del Method Room Air 10/01/24 05:11 BMI result Body Mass Index 26.6 Vital signs were normal Exam: General: Awake, alert in no distress, actively dry heaving Head: Normocephalic, atraumatic EENT: PERRL, Lids normal, sclera normal, conjunctiva normal, nose normal , ears normal, throat without erythema or exudates Neck: Supple, no adenopathy Lung: breath sounds symmetric, no wheezing, rales or rhonchi Chest: symmetric movement, nontender Heart: regular rate and rhythm, normal S1, S2 no murmurs or rubs Abdomen: soft, moderate epigastric tenderness, no rebound, no voluntary or involuntary guarding, nondistended, normal bowel sounds Back: no vertebral tenderness, no CVAT Extremities: no deformities, moves all extremities symmetrically Neuro: Awake, alert, oriented, normal speech, cranial nerves intact, moves all extremities symmetrically Psych: Pleasant, cooperative Medications Administered Discontinued Medications Generic Name Dose Route Start Last Admin Trade Name Freq PRN Reason Stop Dose Admin Diphenhydramine HCl 50 mg 10/01/24 08:50 10/01/24 09:16 Diphenhydramine Hcl 50 Mg/Ml Vial IVPUSH 10/01/24 08:51 50 mg ONCE STA Administration Sodium Chloride 1,000 mls @ 999 mls/hr 10/01/24 08:50 10/01/24 10:47 Ns IV 10/01/24 09:50 Infused .Q1H1M STA Infusion Ketorolac Tromethamine 30 mg 10/01/24 05:49 10/01/24 05:53 Ketorolac Tromethamine 30 Mg/Ml Vial IM 10/01/24 05:50 30 mg ONCE ONE Administration Ketorolac Tromethamine 15 mg 10/01/24 08:50 10/01/24 09:16 Ketorolac Tromethamine 15 Mg/Ml Vial IVPUSH 10/01/24 08:51 15 mg ONCE STA Administration Metoclopramide HCl 10 mg 10/01/24 08:50 10/01/24 09:16 Metoclopramide Hcl 10 Mg/2 Ml Vial IVPUSH 10/01/24 08:51 10 mg ONCE STA Administration Ondansetron HCl 4 mg 10/01/24 05:48 10/01/24 05:53 Ondansetron Hcl 4 Mg/2 Ml Vial IVPUSH 10/01/24 05:49 4 mg ONCE ONE Administration Ondansetron HCl 4 mg 10/01/24 10:41 10/01/24 10:55 Ondansetron Hcl 4 Mg/2 Ml Vial IVPUSH 10/01/24 10:42 4 mg ONCE ONE Administration Medical Decision Making Medical Decision Making [facility] Narrative: 29-year-old male with a history of anxiety, asthma, opiate use disorder on Suboxone who presents emergency department for evaluation of epigastric pain, nausea and vomiting. Patient states that he woke up at 03:00 hours with epigastric pain. He describes the pain is a constant sharp pain which is greater than 10/10. Patient had severe nausea and has vomited multiple times. In the emergency department in his had multiple episodes of dry heaves. The patient has been seen in the past for intractable vomiting/cyclic vomiting syndrome. Patient denies THC use.He denied fever but states he has been experiencing chills. He denied chest pain, shortness of breath, cough, diarrhea, frequency, urgency or dysuria. Vital signs were normal. Abdominal exam revealed moderate epigastric tenderness with no rebound. Differential diagnosis: ?Includes but is not limited to gastritis, pancreatitis, viral syndrome, cyclic vomiting syndrome, anemia, electrolyte abnormalities Course: 08:55 My interpretation patient's laboratory evaluation is as follows: WBC was normal 6200. Mild normocytic anemia with an H&H of 13.9 and 40 point 8. CMP was normal. Lipase was normal. I ordered the following: Normal saline IV x1 L, Reglan 10 mg IV, Benadryl 15 mg IV and Toradol 15 mg IV 10:41 Urinalysis revealed trace blood. Microscopic revealed 11-20 RBCs, 0-5 WBCs, 0-2 squamous cells and no bacteria-no evidence for an infection. Patient's pain did improve. He is no longer dry heaving but he states that he still has nausea therefore I ordered Zofran 4 mg IV. Patient will also try to eat some ice chips. 13:13 Patient's vomiting has improved but he still has persistent nausea. Patient was given droperidol 1.25 mg IV. Patient was discharged home with a prescription for Zofran ODT. He was given printed and verbal instructions and these were reviewed with him at the time of discharge. Admission/Observation Consideration of admission/observation: Escalation of care including admission/observation considered (Yes) Lab Data 10/01/24 05:40 10/01/24 05:40 Labs: Lab Results 10/01/24 10/01/24 Range/Units 05:40 09:41 WBC 6.2 (4.8-10.8) X10*3/uL RBC 4.74 (4.60-5.80) X10*6/uL Hgb 13.9 L (14.0-18.0) g/dl Hct 40.8 L (42.0-52.0) % MCV 86.1 (80.0-98.0) fL MCH 29.3 (27.0-33.0) pg MCHC 34.1 (31.0-36.0) g/dl RDW 13.6 (11.0-16.0) % Plt Count 277 (160-400) X10*3/uL MPV 10.3 (9.4-12.4) fL Absolute Nucleated RBC 0.000 (0.0-0.012) X10*3/uL Nucleated RBC % (auto) 0.0 (0.0-0.2) /100WBC Sodium 143 (135-145) mmol/L Potassium 4.5 (3.3-5.1) mmol/L Chloride 108 (96-108) mmol/L Carbon Dioxide 23 (22-29) mmol/L Anion Gap 17 (12-20) BUN 15 (9-16) mg/dL Creatinine 1.04 (0.5-1.4) mg/dL Estim Creat Clear Calc 96.2 Estimated GFR > 60 Random Glucose 105 (60-115) mg/dL Calcium 9.5 (8.4-10.2) mg/dL Magnesium 2.1 (1.6-2.6) mg/dL Total Bilirubin 0.2 (0.0-1.0) mg/dL Direct Bilirubin < 0.2 (0.0-0.5) mg/dL AST 29 (5-37) U/L ALT 22 (0-40) U/L Alkaline Phosphatase 93 (39-117) U/L Total Protein 7.8 (6.5-8.0) g/dL Albumin 4.9 (3.5-5.0) g/dL Lipase 19 (8-78) U/L Urine Color Yellow Urine Appearance Clear Urine pH 6.5 (5.0-9.0) Ur Specific [place] 1.025 (1.005-1.025) Urine Protein Trace (Neg-Trace) mg/dL Urine Glucose (UA) Negative (Negative) mg/dL Urine Ketones Negative (Negative) mg/dL Urine Blood Trace H (Negative) Urine Nitrite Negative (Negative) Ur Leukocyte Esterase Negative (Negative) Urine RBC 11-20 H (0-2) /HPF Urine WBC 0-5 (0-5) /HPF Ur Squamous Epith Cells 0-2 (0-2) /HPF Urine Bacteria None Seen (None Seen) Hyaline Casts 0-2 (0-2) /LPF Chronic Conditions Patient?s care impacted by: Other (Asthma, opiate use disorder) Discharge Plan Discharge Clinical Impression: Cyclic vomiting syndrome Patient Disposition: Home, Self-Care Instructions: Cyclic Vomiting Syndrome (ED) Additional Instructions: Your blood work was unremarkable. Take Zofran ODT 4 mg pills, 1 pill dissolved in your mouth every 8 hours as needed for nausea and vomiting. For the next 24 hours, stay on a BRIDGETTE diet (bananas, rice, applesauce, tea and toast). Follow-up with your doctor in 2 days. Please return to the emergency department if your symptoms get worse or if you develop any symptoms that are concerning to you. Prescriptions: New ondansetron 4 mg tablet,disintegrating 4 mg PO Q6-8H PRN (Reason: nausea and vomiting) Qty: 20 0RF No Action albuterol sulfate 90 mcg/actuation HFA aerosol inhaler 2 puff inhalation QID PRN (Reason: Shortness Of Breath Or Wheezing) acetaminophen [Tylenol Extra Strength] 500 mg tablet 500 mg PO Q6H PRN (Reason: fever or pain) Qty: 14 0RF amoxicillin-pot clavulanate 875-125 mg tablet 1 tab PO Q12H 5 Days Qty: 10 0RF Print Language: Belarusian
[2024-10-01 09:46] LABS: Appearance Urine Clear; Glucose Urine UA Negative (Negative); PH 6.5 (5.0-9.0); Specific Gravity - Urine 1.025 (1.005-1.025); UMIC TRIGGER UACC YES
[2024-10-01 09:49] VITALS: BP 127/71; PULSE 86; RESP 16; TEMP 37.4
[2024-10-01 14:27] VITALS: BP 97/59; PULSE 94; RESP 18; TEMP 37.3; O2SAT 95
== END 2024-10-01 14:28 | disposition home or self-care (01) ==
PROVIDERS: Emergency Provider Emergency Medicine Emergency Medical Services; PCP Internal Medicine
DX: R11.15 Cyclical vomiting syndrome unrelated to migraine (principal); R10.13 Epigastric pain; R11.2 Nausea with vomiting, unspecified
CPT/HCPCS: 36415; 80053; 81001; 82248; 83690; 83735; 85027; 96361; 96372; 96374; 96375; 96376; 99284; 99285; J1200; J1790; J1885; J2405; J2765

== ENCOUNTER 2024-11-12 21:03 | Emergency (ER) | payer OTHER, SELFPAY ==
--- NOTE | ~2024-11-12 | XR_ITS ---
CLINICAL HISTORY: asthma 1 view chest x-ray Comparison: CR/[place] - XR CHEST 2 VIEWS - 08/02/22 13:32 EDT Findings: No consolidation or effusion. Normal size heart. No acute fracture. IMPRESSION: 1. No acute findings. This document has been electronically signed by: Cindy De La Rosa MD on 11/12/2024 22:06:46
[2024-11-12 21:15] VITALS: BP 130/69; PULSE 90; RESP 18; TEMP 36.3; O2SAT 99; BMI 18.7
--- NOTE | 2024-11-12 21:29 | PC.NURSE ---
Pt declined IV.
--- OUTSIDE RECORDS SUMMARY | 2024-11-12 21:39 | XMS_ITS | Encounter Summary ---
Author Organization [facility] Address [address] [place] [address] Phone Care Team Providers Care Robotype Operator Name Role Phone Unavailable Primary Care Provider Unavailabl e Encounter Details Date Type Department Care Team (Late st Contact Info) Description 04/19/2014 Documentation [facility] Family Medicine [address] [place] [address] Family Medicine, Physician [address], [place] [phone] Social History Tobacco Use Types Packs/Day Years [...]
--- OUTSIDE RECORDS SUMMARY | 2024-11-12 21:39 | XMS_ITS | Encounter Summary ---
Author Organization [facility] Address [address] [place] [address] Phone Care Team Providers Care Shoe Repairman Name Role Phone Unavailable Primary Care Provider Unavailabl e Encounter Details Date Type Department Care Team (Late st Contact Info) Description 01/17/2014 Documentation [facility] Family Medicine [address] [place] [address] Family Medicine, Physician [address], [place] [phone] Social History Tobacco Use Types Packs/Day Years [...]
--- OUTSIDE RECORDS SUMMARY | 2024-11-12 21:39 | XMS_ITS | Clinical Summary ---
Author Organization [facility] Address [address] [place] [address] Phone Care Team Providers Care Manager Safe Name Role Phone Unavailable Primary Care Provider Unavailabl e Immunizations Immunization Administration Dates Next Due DTaP 5 09/01/2001, [...] of Asthma, No family history of *Sudden /ID under 55, Family history of Sudden /ID under age 55, Family history of Cancer [...] 67 05/17/2014 12:00 AM EDT Temperature 36.6 C (97.8 F) 04/04/2014 12:00 AM EST Respiratory Rate - - Oxygen Saturation - [...] 12/06/1998, Additional history exists Influenza Vaccines (#1) 2024 01/14/20 14, 12/09/2012, 01/05/2012, Additional history exists COVID-19 Vaccine ( season) 2024 Hepatitis B Vaccines Completed 1997, 1997, 1997 [...]
--- OUTSIDE RECORDS SUMMARY | 2024-11-12 21:39 | XMS_ITS | Encounter Summary ---
Author Organization [facility] Address [address] [place] [address] Phone Care Team Providers Care Customer Care Manager Name Role Phone Unavailable Primary Care Provider Unavailabl e Encounter Details Date Type Department Care Team (Late st Contact Info) Description 01/17/2014 Documentation [facility] Family Medicine [address] [place] [address] Family Medicine, Physician [address] [place], [place] [phone] Social History Tobacco Use Types Packs/Day Years [...]
--- OUTSIDE RECORDS SUMMARY | 2024-11-12 21:39 | XMS_ITS | Encounter Summary ---
Author Organization [facility] Address [address] [place] [address] Phone Care Team Providers Care Construction Driller Name Role Phone Unavailable Primary Care Provider Unavailabl e Encounter Details Date Type Department Care Team (Late st Contact Info) Description 05/16/2011 Documentation [facility] Family Medicine [address] [place] [address] Family Medicine, Physician [address] [phone] Social History Tobacco Use Types Packs/Day Years [...]
--- OUTSIDE RECORDS SUMMARY | 2024-11-12 21:39 | XMS_ITS | Encounter Summary ---
Author Organization [facility] Address [address] [place] [address] Phone Care Team Providers Care Taper/Finisher Name Role Phone Unavailable Primary Care Provider Unavailabl e Encounter Details Date Type Department Care Team (Late st Contact Info) Description 04/20/2014 Documentation [facility] Family Medicine [address] [place] [address] Family Medicine, Physician [address], [place] [phone] Social History Tobacco Use Types Packs/Day Years [...]
--- OUTSIDE RECORDS SUMMARY | 2024-11-12 21:39 | XMS_ITS | Encounter Summary ---
Author Organization [facility] Address [address] [place] [address] Phone Care Team Providers Care Death Surveys Coder Name Role Phone Unavailable Primary Care Provider Unavailabl e Encounter Details Date Type Department Care Team (Late st Contact Info) Description 10/09/2016 Conversion Encounter [facility] - [address] [address] Social History Tobacco Use Types Packs/Day Years [...]
--- OUTSIDE RECORDS SUMMARY | 2024-11-12 21:39 | XMS_ITS | Encounter Summary ---
Author Organization [facility] Address [address] [place] [address] Phone Care Team Providers Care Repossessor Name Role Phone Unavailable Primary Care Provider Unavailabl e Encounter Details Date Type Department Care Team (Late st Contact Info) Description 05/16/2011 Documentation [facility] Family Medicine [address] [place] [address] Family Medicine, Physician [address] [phone] Social History Tobacco Use Types Packs/Day Years [...]
--- OUTSIDE RECORDS SUMMARY | 2024-11-12 21:39 | XMS_ITS | Encounter Summary ---
Author Organization [facility] Address [address] [place] [address] Phone Care Team Providers Care Pipe Fitter Helper Name Role Phone Unavailable Primary Care Provider Unavailabl e Encounter Details Date Type Department Care Team (Late st Contact Info) Description 11/01/2012 Documentation [facility] [address] [place] [address] Family Medicine, Physician [address], [place] [id number] Social History Tobacco Use Types Packs/Day Years [...]
--- OUTSIDE RECORDS SUMMARY | 2024-11-12 21:39 | XMS_ITS | Encounter Summary ---
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
[2024-11-12 22:00] LABS: MANUAL DIFF FLAG NO
[2024-11-12 22:01] LABS: Hematocrit 37.6 % (42.0-52.0); Hemoglobin 13.1 g/dl (14.0-18.0); Imm Gran Abs Auto 0.01 X10*3/uL (0.00-0.03); Imm Gran Pct Auto 0.2 % (0.0-0.4); Lymphocytes Absolute Auto 2.2 X10*3/uL (1.2-4.9); Mean Corpuscular HGB Conc 34.8 g/dl (31.0-36.0); Mean Corpuscular Hemoglobin 29.9 pg (27.0-33.0); Mean Corpuscular Volume 85.8 fL (80.0-98.0); NRBC Abs Auto 0.000 X10*3/uL (0.0-0.012); NRBC Pct Auto 0.0 /100WBC (0.0-0.2); Platelet Count 244 X10*3/uL (160-400); Red Blood Count 4.38 X10*6/uL (4.60-5.80); White Blood Count 5.5 X10*3/uL (4.8-10.8)
[2024-11-12] MEDS: Albuterol Sulfate 90 MCG 8 GM INHALER 2 PUFF INHALE (22:12)
[2024-11-12 22:14] LABS: Alanine Aminotransferase 23 U/L (0-40); Albumin Level 4.2 g/dL (3.5-5.0); Alkaline Phosphatase 84 U/L (39-117); Anion Gap 10 (12-20); Aspartate Amino Transferase 24 U/L (5-37); Blood Urea Nitrogen 13 mg/dL (9-16); Calcium 8.5 mg/dL (8.4-10.2); Carbon Dioxide 27 mmol/L (22-29); Chloride 108 mmol/L (96-108); Creatinine Clr Calc Pharmacy 95.4; Estimated Glomerular Filt Rate > 60; Potassium 3.6 mmol/L (3.3-5.1); Sodium 141 mmol/L (135-145); Total Protein 6.5 g/dL (6.5-8.0)
[2024-11-12 22:16] LABS: COVID-19 Test Negative (Negative); IDNOW Serial# 55D5AD1C
[2024-11-12 22:18] LABS: IDNOW Serial# 58CA691E; Influenza B2 Negative (Negative)
--- NOTE | 2024-11-12 22:19 | ED.ASTHMA ---
HPI - Asthma General Chief Complaint: Asthma Stated Complaint: difficulty breathing (needs asthma treatment) Time Seen by Provider: 11/12/24 21:35 History of Present Illness HPI Narrative: Patient is a 29-year-old male presents today with coughing congestion upper respiratory symptoms has a history of asthma. Never been hospitalized in the past. Patient ran out of pumps at home. No fever no chills. Took a family member's pump and the symptoms seems to have improved. No history sudden deaths in the family. Patient wants to leave immediately because he is under house arrest. Related Data Home Medications ?Medication ?Instructions ?Recorded ?Confirmed albuterol sulfate 90 mcg/actuation 2 puff inhalation QID PRN 05/17/20 12/07/23 aerosol inhaler Shortness Of Breath Or Wheezing Previous Rx's ?Medication ?Instructions ?Recorded acetaminophen 500 mg tablet 500 mg PO Q6H PRN fever or pain 01/13/23 (Tylenol Extra Strength) #14 tabs amoxicillin 875 mg-potassium 1 tab PO Q12H 5 days #10 tabs 08/04/24 clavulanate 125 mg tablet ondansetron 4 mg disintegrating 4 mg PO Q6-8H PRN nausea and 10/01/24 tablet vomiting #20 tabs albuterol sulfate 90 mcg/actuation 2 inh inhalation Q6H PRN shortness 11/12/24 breath activated powder inhaler of breath 2 weeks #1 ea prednisone 20 mg tablet 40 mg (2 x 20 mg) PO DAILY #10 tabs 11/12/24 Allergies Allergy/AdvReac Type Severity Reaction Status Date / Time No Known Allergies Allergy Verified 11/12/24 21:20 Review of Systems Review of Systems: Positive shortness of breath Yes all other systems are reviewed and are negative PMFSH Past Medical History Attestation statement: The following information was validated with the patient. Medical History Depression Anxiety Asthma Surgical History H/O circumcision Social History Social History Household Members: Family Housing: Apartment Alcohol intake: unknown Patient Tobacco Use Status: Never used Tobacco Substance Use Type: Marijuana, Painkillers and Prescription Drugs Advance Directives: No Advance Directives Information Provided: No Do you have a plan to hurt others: No Plan service: No Current occupational status: unemployed Current occupation: right hand dominant Sexual orientation: Straight/Heterosexual Physical Exam Exam: Exam: Appearance: Alert. Oriented X3. No acute distress. Eyes: Pupils equal, round and reactive to light. ENT: Pharynx normal. Neck: Normal inspection. Neck supple. No lymph nodes noted. No crepitus CVS: Normal heart rate and rhythm. Pulses normal. Normal S1 and S2 Respiratory: Clear breath sounds bilaterally no distress Abdomen: Soft and nontender. No rigidity. No distention. good BS x4 Skin: Skin warm and dry. Normal skin color. Normal skin turgor. Extremities: No lower extremity edema. Neurovascular intact to all extremities. No Lacerations. No Rash Neuro: Oriented X 3. No motor deficit. No sensory deficit. Moving all extermities. No slurred speech Vital Signs: Vital Signs: Last Vital Signs Temp 97.4 F 11/12/24 21:15 Pulse 90 11/12/24 21:15 Resp 18 11/12/24 21:15 BP 130/69 11/12/24 21:15 Pulse Ox 99 11/12/24 21:15 O2 Del Method Room Air 11/12/24 21:15 BMI result Body Mass Index 18.7 Medications Administered Discontinued Medications Generic Name Dose Route Start Last Admin Trade Name Freq PRN Reason Stop Dose Admin Albuterol Sulfate 2 puff 11/12/24 22:07 11/12/24 22:12 Albuterol Sulfate 90 Mcg 8 Gm Inhaler INHALE 11/12/24 22:08 2 puff ONCE ONE Administration Medical Decision Making Medical Decision Making [facility] Narrative: Patient already had 2 pump of the albuterol on my arrival his lungs were clear no distress. O2 sats normal. He stated his symptoms much improved. His COVID test was negative his CBC chemistries are normal O2 sat is normal my interpretation of his chest x-ray is ferrell basically normal there is no evidence of pneumonia no pneumothorax no evidence of anemia hemoglobin is 13 patient in no distress. Will discharge home. Differential Diagnosis Differential Diagnoses: The differential diagnosis associated with the presentation includes Pneumonia, flu, COVID, asthma Admission/Observation Consideration of admission/observation: Escalation of care including admission/observation considered Lab Data [facility] Lab Attestation statement: I reviewed the patient's lab results. 11/12/24 21:56 11/12/24 21:56 Labs: Lab Results 11/12/24 Range/Units 21:56 WBC 5.5 (4.8-10.8) X10*3/uL RBC 4.38 L (4.60-5.80) X10*6/uL Hgb 13.1 L (14.0-18.0) g/dl Hct 37.6 L (42.0-52.0) % MCV 85.8 (80.0-98.0) fL MCH 29.9 (27.0-33.0) pg MCHC 34.8 (31.0-36.0) g/dl RDW 13.0 (11.0-16.0) % Plt Count 244 (160-400) X10*3/uL MPV 10.5 (9.4-12.4) fL Immature Gran % (Auto) 0.2 (0.0-0.4) % Neut % (Auto) 37.4 L (45-73) % Lymph % (Auto) 39.5 (20-40) % [place] % (Auto) 11.1 H (2-11) % Eos % (Auto) 11.1 H (0-4) % Baso % (Auto) 0.7 (0-2) % Lymph # (Auto) 2.2 (1.2-4.9) X10*3/uL [place] # (Auto) 0.6 (0.1-1.2) X10*3/uL Eos # (Auto) 0.6 H (0.0-0.4) X10*3/uL Baso # (Auto) 0.0 (0.0-0.2) X10*3/uL Abs Immat Gran (auto) 0.01 (0.00-0.03) X10*3/uL Absolute Neuts (auto) 2.1 (2.0-8.3) x10*3/uL Absolute Nucleated RBC 0.000 (0.0-0.012) X10*3/uL Nucleated RBC % (auto) 0.0 (0.0-0.2) /100WBC Sodium 141 (135-145) mmol/L Potassium 3.6 (3.3-5.1) mmol/L Chloride 108 (96-108) mmol/L Carbon Dioxide 27 (22-29) mmol/L Anion Gap 10 L (12-20) BUN 13 (9-16) mg/dL Creatinine 0.97 (0.5-1.4) mg/dL Estim Creat Clear Calc 95.4 Estimated GFR > 60 Random Glucose 91 (60-115) mg/dL Calcium 8.5 D (8.4-10.2) mg/dL Total Bilirubin 0.2 (0.0-1.0) mg/dL AST 24 (5-37) U/L ALT 23 (0-40) U/L Alkaline Phosphatase 84 (39-117) U/L Total Protein 6.5 (6.5-8.0) g/dL Albumin 4.2 (3.5-5.0) g/dL COVID-19 (SUNNI) Negative (Negative) COVID-19 Clin Com See Note Independent Interpretation I performed an independent interpretation of an: Plain X-Ray (Chest x-ray was negative for pneumonia no pneumothorax) Radiology Impression Discussion of test interpretation with radiology: I have reviewed the radiologist's reading. Chronic Conditions History of asthma never been hospitalized Social Determinants Patient?s care significantly limited by Social Determinants of Health including: Problems related to primary support group Discharge Plan Discharge Clinical Impression: Asthma Patient Disposition: Home, Self-Care Instructions: Asthma (DC) Prescriptions: New prednisone 20 mg tablet 40 mg PO DAILY Qty: 10 0RF albuterol sulfate 90 mcg/actuation aerosol powdr breath activated 2 inh inhalation Q6H PRN (Reason: shortness of breath) 14 Days Qty: 1 0RF No Action albuterol sulfate 90 mcg/actuation HFA aerosol inhaler 2 puff inhalation QID PRN (Reason: Shortness Of Breath Or Wheezing) acetaminophen [Tylenol Extra Strength] 500 mg tablet 500 mg PO Q6H PRN (Reason: fever or pain) Qty: 14 0RF amoxicillin-pot clavulanate 875-125 mg tablet 1 tab PO Q12H 5 Days Qty: 10 0RF ondansetron 4 mg tablet,disintegrating 4 mg PO Q6-8H PRN (Reason: nausea and vomiting) Qty: 20 0RF Print Language: Martiniquais
[2024-11-12 22:31] VITALS: BP 130/69; PULSE 90; RESP 18; TEMP 36.3; O2SAT 99
== END 2024-11-12 22:32 | disposition home or self-care (01) ==
PROVIDERS: Emergency Provider Emergency Medicine Emergency Medical Services
DX: J45.909 Unspecified asthma, uncomplicated (principal); R05.9 Cough, unspecified; Z79.899 Other long term (current) drug therapy; Z03.818 Encounter for observation for suspected exposure to other biological agents ruled out
CPT/HCPCS: 36415; 71045; 80053; 85025; 87502; 87635; 99283

== ENCOUNTER → 2024-11-12 21:20 | Outpatient (BNV) | payer OTHER, SELFPAY | PROVIDERS: Emergency Provider Emergency Medicine Emergency Medical Services; Visit Provider Radiology Diagnostic Radiology | DX: J45.909 Unspecified asthma, uncomplicated (principal) | CPT/HCPCS: 71045 ==